=== PATIENT | female | born 1950 | race Caucasian/White ===

== ENCOUNTER → 2021-01-25 12:29 | Outpatient (CLI) | payer MEDICARE, OTHER, SELFPAY ==
[2021-01-25 13:45] LABS: NATERA MAILED SPECIMEN
[2021-01-28 14:29] LABS: HPV APTIMA, High Risk Negative (Negative)
== END ==
PROVIDERS: PCP Family Medicine; Referring Provider Obstetrics & Gynecology; Visit Provider Obstetrics & Gynecology
DX: Z12.4 Encounter for screening for malignant neoplasm of cervix (principal)
CPT/HCPCS: 36415; 87624; 88175; G0145

== ENCOUNTER 2021-07-01 13:10 | Outpatient (CLI) | payer MEDICARE, OTHER, SELFPAY ==
--- NOTE | 2021-07-01 13:12 | BI_ITS ---
MAMMOGRAPHY - BILATERAL SCREENING REASON FOR EXAM: Female, 70 years old. Routine annual screening examination. PERTINENT HISTORY: Non-contributory. TECHNIQUE: Digital bilateral breast jeffery (3D mammographic acquisition) in the CC and MLO projections. 2-D mediolateral oblique (MLO) and craniocaudad (CC) views of both breasts were obtained. CAD: Full Field Digital Mammography with Computer Added Detection was performed. COMPARISON: Comparison is made with prior outside examination dated 06/19/2020. FINDINGS: Breast Composition: There are scattered areas of fibroglandular density. There is a 7.8 mm x 5 mm well-defined nodular density in the upper deep slightly medial aspect of the left breast. This has increased slightly in size as compared to prior study. Correlation with ultrasound is recommended. No other significant abnormalities are identified. BI/SCRN MAMM (CAD)W/JEFFERY BILAT IMPRESSION: 7.8 mm x 5 mm well-defined nodule in the upper deep slightly medial aspect of the left breast. Correlation with ultrasound is recommended. ASSESSMENT CATEGORY: BIRADS Category 0: Incomplete. Need additional imaging evaluation. A letter regarding these results will be sent to the patient by the facility within 30 days. Approximately 10% of breast cancers are not detected by mammography. A normal mammogram should not delay biopsy of a clinically suspicious abnormality. [id number] Electronically Signed: Hasmukh Dolan MD at 9:28 EST ,
--- NOTE | 2021-07-01 13:36 | BD_ITS ---
STUDY: DUAL ENERGY X-RAY ABSORPTIOMETRY / DXA REASON FOR EXAM: Female, 70 years old. Postmenopausal TECHNIQUE: Bone Mineral Density (BMD) measurements of lumbar spine and bilateral hips were obtained. COMPARISON: None. FINDINGS: Lumbar Spine (L1-L4): g/cm2 (1.108) / T-score (0.6) / Z-score (2.7) Findings are suggestive of normal bone density with a low fracture risk. Left Femur Total: g/cm2 (0.867) / T-score (-0.6) / Z-score (0.9) Left Femoral Neck: g/cm2 (0.661) / T-score (-1.7) / Z-score (0.1) Right Femur Total: g/cm2 (0.891) / T-score (-0.4) / Z-score (1.1) Right Femoral Neck: g/cm2 (0.634) / T-score (-1.9) / Z-score (0.1) BD/Dexa Bone Density Study IMPRESSION: The patient is considered osteopenic as outlined below according to World Nik Organization (WHO) criteria with a moderate fracture risk. Reference Information: The T-score is the number of standard deviations above or below the standard which is normal for young adults at their peak bone mineral density. The World Health Organization (WHO) interprets the T-scores as follows: Above -1 Normal bone density Between -1 and -2.5 Osteopenia Equal to / or below -2.5 Osteoporosis As a practical clinical guideline, osteopenia may be graded as follows: Mild -1 through -1.5 Moderate -1.6 through -2.0 Severe -2.1 through -2.4 The Z-score is the number of standard deviations above or below age-matched controls. A Z-score of less than -1.5 would be considered abnormal. References: 1. NIH Osteoporosis and Related Bone Diseases www osteo.org 2. International Society for Clinical Densitometry www iscd.org 3. National Osteoporosis Foundation www nof.org Electronically Signed: Hasmukh Dolan MD at 10:04 EST ,
== END 2021-07-01 23:59 | disposition home or self-care (01) ==
PROVIDERS: PCP Family Medicine; Visit Provider Obstetrics & Gynecology
DX: Z78.0 Asymptomatic menopausal state (principal); Z12.31 Encounter for screening mammogram for malignant neoplasm of breast
CPT/HCPCS: 77063; 77067; 77080

== ENCOUNTER 2021-07-09 10:57 | Outpatient (CLI) | payer MEDICARE, OTHER, SELFPAY ==
--- NOTE | 2021-07-09 11:00 | US_ITS ---
STUDY: ULTRASOUND BREAST - LEFT REASON FOR EXAM: Female, 70 years old. Abnormal screening mammogram. TECHNIQUE: Axial and longitudinal images of the LEFT breast were performed with a high resolution ultrasound transducer. # OF IMAGES: 29 COMPARISON: 07/01/2021 FINDINGS: LEFT Breast: Heterogeneous background echotexture. At 11 o''clock, 10 cm from nipple, ultrasound confirms an 8 mm oval parallel microlobulated hypoechoic mass not consistent with a simple cyst and therefore ultrasound-guided vacuum-assisted core biopsy is recommended.: US/Breast Limited Unilateral IMPRESSION: Ultrasound confirms an 8 mm oval parallel microlobulated hypoechoic mass and ultrasound-guided vacuum-assisted core biopsy is recommended. ASSESSMENT CATEGORY: BIRADS Category 4: Suspicious - Biopsy Should Be Considered. A letter regarding these results will be sent to the patient by the facility within 30 days. Electronically Signed: Donis Castorena MD at 11:53 EDT ,
== END 2021-07-09 23:59 | disposition home or self-care (01) ==
PROVIDERS: PCP Family Medicine; Referring Provider Family Medicine; Visit Provider Family Medicine
DX: N63.22 Unspecified lump in the left breast, upper inner quadrant (principal)
CPT/HCPCS: 76642

== ENCOUNTER 2021-07-14 09:51 | Outpatient (CLI) | payer MEDICARE, OTHER, SELFPAY ==
--- NOTE | 2021-07-14 | BRBX_PTH ---
PATIENT: ARIAN SALGADO [facility] U#:[id number] AGE/SX: 70/F ROOM: RE07/14/[address]: Dr. Navdeep Hernandez MD : 1950 BED: DIS: 07/14/2021 SPEC #: [id number] RECD: 07/14/21 10:47 STATUS: LG GOLD #: [id number] MAYRA: 07/14/21 00:[address]: Navdeep Hernandez DEPT: SURGICAL PATHOLOGY RECD BY: Andrew Juarez ENTERED: 07/14/21 10:48 SP TYPE: BREAST BX OTHR DR: Dr. Iban Weller MD Tissues: Left breast, NOS Procedures: Surgery Specimen Level IV HEADER OPERATION: Left breast biopsy PRE-OP DIAGNOSIS: Left breast tissue TISSUE SUBMITTED: Left breast tissue ISCHEMIC TIME: 4 minutes FIXATION TIME: 10.5 hours MICROSCOPIC DIAGNOSIS Left breast, core biopsy: Hyalinized fibroadenoma Negative for atypia or malignancy. See comment. VALERIE:amaya 07/15/2021 COMMENT Correlation with clinical, radiologic findings and appropriate follow up are necessary. MICROSCOPIC DESCRIPTION Slides are reviewed. GROSS DESCRIPTION Received in fixative is one container labeled with the patient's name and designated left breast biopsy. The specimen consists of multiple elongated fragments of saucedo-yellow fibroadipose tissue that in aggregate measure 2 x 0.6 x 0.1 cm. The entire specimen is submitted in one cassette. / VALERIE:amaya 07/14/2021 TC:1 CPT: 68113
== END 2021-07-14 23:59 | disposition home or self-care (01) ==
PROVIDERS: PCP Family Medicine; Referring Provider Surgery; Visit Provider Surgery
DX: D24.2 Benign neoplasm of left breast (principal)
CPT/HCPCS: 88305

== ENCOUNTER → 2022-01-28 | Outpatient (CLI) | payer MEDICARE, OTHER, SELFPAY ==
--- NOTE | 2022-01-28 10:44 | US_ITS ---
STUDY: ULTRASOUND BREAST - LEFT REASON FOR EXAM: Female, 71 years old. Six-month follow-up of left breast biopsy. TECHNIQUE: Axial and longitudinal images of the LEFT breast were performed with a high resolution ultrasound transducer. # OF IMAGES: 13 COMPARISON: Comparison is made with prior study from 07/09/2021. FINDINGS: LEFT Breast: There is a 9 mm x 7 mm x 3 mm hypoechoic nodule at the 11 o''clock position of the breast at 10 cm from nipple. A tissue marker is seen within it. This is unchanged. US/Breast Limited Unilateral IMPRESSION: Stable 9 mm x 7 mm x 3 mm well-defined hypoechoic nodule at 11 o''clock position in the breast at 10 cm from the nipple. A tissue clip marker is seen within it. ASSESSMENT CATEGORY: BIRADS Category 2: Benign. A letter regarding these results will be sent to the patient by the facility within 30 days. Electronically Signed: Hasmukh Dolan MD at 12:27 EDT ,
== END | disposition home or self-care (01) ==
LOC: OPUS 10:43
PROVIDERS: PCP Family Medicine; Visit Provider Surgery
DX: R92.8 Other abnormal and inconclusive findings on diagnostic imaging of breast (principal)
CPT/HCPCS: 76642

== ENCOUNTER 2022-03-24 11:10 | Emergency (ER) | payer MEDICARE, OTHER, SELFPAY ==
[2022-03-24 11:11] VITALS: BP 165/84; PULSE 94; RESP 14; TEMP 36.4; O2SAT 96; BMI 27.4
[2022-03-24 11:51] LABS: Absolute Lymphocyte Count 2.72 X10^3/uL (0.83-4.51); Absolute Neutrophil Count 5.7 X10^3/uL (2.0-7.7); Basophil# 0.02 X10^3/uL; Basophil% 0.2 % (0-1); Eosinophil# 0.19 X10^3/uL; Hemoglobin 13.3 g/dL (12.0-15.0); Lymphocyte # 2.72 X10^3/ul (0.83-4.51); Lymphocyte % 29.1 % (19-41); Mean Corp Hgb Conc 33.3 g/dL (32-36); Mean Corpuscular Hgb 28.2 pg (27.0-32.0); Mean Corpuscular Volume 84.7 fL (81-99); Mean Platelet Vol. 10.5 fl (6.2-12.0); Monocyte# 0.67 X10^3/uL; Monocyte% 7.2 % (0-10); NRBC Flagged by Analyzer 0 % (0-5); Neutrophil # 5.73 X10^3/uL (2.7-7.7); Neutrophil % 61.2 % (47-70); Platelet Count 281 K/mm3 (150-450); RBC Distribution Width CV 12.6 % (11.6-14.6); RBC Distribution Width SD 38.4 fl (35.1-43.9); Red Blood Count 4.72 M/mm3 (4.2-5.4); White Blood Count 9.4 K/mm3 (4.4-11.0)
--- NOTE | 2022-03-24 12:00 | EDS_ITS ---
HPI HPI - GI History of Present Illness Chief Complaint: Abd Pain Informant: patient Abdominal Pain/Flank Pain Onset: Days (2) Context: Sudden Onset Timing: Continuous Quality: Aching and Stabbing Location: RLQ Worsened by: Nothing Relieved by: Nothing Nausea/Vomiting/Emesis GI Symptom: Negative for Nausea or Vomiting Diarrhea/Melena/Hematochezia GI Symptom: Negative for Diarrhea, Melena or Hematochezia Associated Symptoms Associated Symptoms: Negative for Dysuria, Frequency, Hematuria or Urgency Narrative Narrative: Patient presents with abdominal pain that has been constant for the past 2 days. Patient states her pain is better today. Patient describes her pain as aching and stabbing. Patient states the pain is in the right lower abdomen. Patient states the pain started in the right lower quadrant. Patient states nothing makes it better nothing makes it worse. Patient does admit to a decreased appetite but denies any nausea or vomiting. Patient denies any diarrhea, melena, or hematochezia. Patient denies any dysuria, urgency, frequency, or hematuria. Patient admits to some subjective chills but denies any fevers. [facility] Medical History Abnormal mammogram of left breast Anxiety and depression Genetic testing of female GERD (gastroesophageal reflux disease) Hypertension Thyroid disease Home Medications ascorbate calcium (vitamin C) 500 mg tablet 500 mg PO DAILY 01/25/21 [History Last Taken Unknown] cholecalciferol (vitamin D3) 50 mcg (2,000 unit) capsule 50 mcg PO DAILY 01/25/21 [History Last Taken Unknown] cyanocobalamin (vitamin B-12) 1,000 mcg capsule 1,000 mcg PO DAILY 01/25/21 [History Last Taken Unknown] escitalopram oxalate 10 mg tablet (Lexapro) 10 mg PO DAILY 01/25/21 [History Last Taken Unknown] levothyroxine 112 mcg tablet 112 mcg PO DAILY 01/25/21 [History Last Taken Unknown] losartan 100 mg-hydrochlorothiazide 25 mg tablet 1 tab PO DAILY 01/25/21 [History Last Taken Unknown] multivitamin 1 tab PO DAILY 07/14/21 [History Last Taken Unknown] Allergy/AdvReac Type Severity Reaction Status Date / Time sulfabenzamide [From Sultrin] Allergy Mild other Verified 03/24/22 11:12 sulfacetamide [From Sultrin] Allergy Mild other Verified 03/24/22 11:12 sulfathiazole [From Sultrin] Allergy Mild other Verified 03/24/22 11:12 Family History Mother Lung cancer Brain cancer malignant CAD (coronary artery disease) Father COPD (chronic obstructive pulmonary disease) Prostate cancer Colon cancer Grandmother Colon cancer Surgical History H/O tubal ligation History of breast biopsy (~06/2021) History of endometrial ablation Social History Smoking Status: Never smoker alcohol intake: never caffeine: No seatbelt use: always do you feel safe at home: Yes additional social history: retired- [employer] ED Constitutional Constitutional ED: Reports chills and subjective; Denies fever(s) Eyes Eyes: Denies blurry vision or change in vision ENT ENT ED: Denies rhinorrhea or sore throat Cardiovascular Cardiovascular: Denies chest pain or palpitations Respiratory/Chest Respiratory/Chest: Denies cough or dyspnea Gastrointestinal Gastrointestinal: Reports abdominal pain; Denies nausea or vomiting Genitourinary Genitourinary ED: Denies dysuria or hematuria Musculoskeletal Musculoskeletal: Denies back pain or neck pain Integumentary Denies abscess or rash Neurologic Neurologic: Denies headache(s) or weakness Allergic/Immunologic Allergic/Immunologic ED: Denies mouth swelling or urticaria EXAM Physical Exam Const Vital Signs: 03/24/22 11:11 03/24/22 13:10 Temperature 97.6 F L Temperature Source Temporal Pulse Rate 94 Respiratory Rate 14 16 Blood Pressure 165/84 H Blood Pressure Mean 111 Pulse Ox 96 Oxygen Delivery Method Room Air Positive well nourished and well developed General Appearance ED: well developed HEENT Reports moist mucous membranes Neck supple and no JVD Resp normal respiratory effort and clear to auscultation bilaterally Cardio regular rate, regular rhythm and no murmurs GI normal to inspection, nondistended, normoactive bowel sounds Palpation: soft and tender RLQ; Negative for guarding or rebound tenderness present Extremity normal to inspection General Extremety ED: Negative for edema or tenderness General Extremity: Negative for edema Neuro oriented x3, CN's II-XII intact bilaterally and no sensory deficits noted Sensorium / Orientation: alert Motor Exam: strength 5/5 throughout Psych mental status grossly normal Skin no rashes or lesions noted MDM MDM MDM Narrative Medical decision making narrative: Patient was given IV fluids, morphine, and Zofran. CBC was within normal limits. Basic metabolic profile was essentially within normal limits. Urinalysis does not show any evidence of urinary tract infection or hematuria. CT scan of the abdomen pelvis was obtained. There is a fatty liver. There is no intraperitoneal free air, fluid, or adenopathy. The appendix was visualized and was normal. This was interpreted by the radiologist and reviewed by myself. Patient is feeling better on reevaluation. Patient was advised of her findings. Patient was instructed to follow-up with her primary care physician in 5 to 7 days. Patient understood and was agreeable with the plan. All questions were answered. Lab Data Attestation: I reviewed the patient's lab results. Labs: Laboratory Results - last 24 hr 03/24/22 03/24/22 03/24/22 11:40 11:40 13:24 WBC 9.4 RBC 4.72 Hgb 13.3 Hct 40.0 MCV 84.7 MCH 28.2 MCHC 33.3 RDW Std Deviation 38.4 RDW Coeff of Aubrie 12.6 Plt Count 281 MPV 10.5 Immature Gran % (Auto) 0.300 Neut % (Auto) 61.2 Lymph % (Auto) 29.1 [place] % (Auto) 7.2 Eos % (Auto) 2.0 Baso % (Auto) 0.2 Absolute Neuts (auto) 5.7 Absolute Lymphs (auto) 2.72 Nucleated RBC % 0 Sodium 141 Potassium 3.4 L Chloride 103 Carbon Dioxide 30.0 Anion Gap 8 BUN 15 Creatinine 1.13 H Estim Creat Clear Calc 43.37 Est GFR (MDRD) Af Amer 61 Est GFR (MDRD) Non-Af 51 L BUN/Creatinine Ratio 13.3 Glucose 146 H Calcium 9.7 Urine Color Straw Urine Clarity Clear Urine pH 7.0 Ur Specific [place] 1.005 Urine Protein Negative Urine Glucose (UA) Normal Urine Ketones Negative Urine Occult Blood Negative Urine Nitrite Negative Urine Bilirubin Negative Urine Urobilinogen Normal Ur Leukocyte Esterase 25 H Urine RBC 0 SEEN Urine WBC 0-5 SEEN Ur Squamous Epith Cells 0 SEEN Urine Bacteria 0 SEEN Urine Mucus 0 SEEN Radiography Diagnostic Testing: Clinical Impression(s) from Imaging Studies Abdomen/Pelvis CT 03/24/22 12:04 IMPRESSION: Fatty liver, no discrete lesion No free intraperitoneal fluid, air, or suspicious adenopathy. Normal appendix visualized Uterus is present, the endometrium cannot be accurately evaluated with CT Electronically Signed: Venkat Lopez MD at 14:51 EST Reading Location ID and State: [facility] / [place] , Service support , Discharge Plan Triage Chief Complaint: Abd Pain ED Provider: Toan Delaney Dx/Rx/DC Orders Clinical Impression: Abdominal pain, acute, right lower quadrant, Hypokalemia Instructions: ED Abdominal Pain Unkn Cause Fem Prescriptions: No Action levothyroxine 112 mcg tablet 112 mcg PO DAILY escitalopram oxalate [Lexapro] 10 mg tablet 10 mg PO DAILY losartan-hydrochlorothiazide 100-25 mg tablet 1 tab PO DAILY cholecalciferol (vitamin D3) 50 mcg (2,000 unit) capsule 50 mcg PO DAILY cyanocobalamin (vitamin B-12) 1,000 mcg capsule 1,000 mcg PO DAILY ascorbate calcium (vitamin C) 500 mg tablet 500 mg PO DAILY multivitamin Tablet 1 tab PO DAILY Primary Care Provider: Iban Weller Referrals: Iban Weller MD [Primary Care Provider] - 3-5 Days Disposition Disposition: Home, Self Care
[2022-03-24 12:04] LABS: Anion Gap 8 (5-15); BUN 15 mg/dL (7-18); BUN/Creat Ratio 13.3 RATIO (10-20); Calcium,Total 9.7 mg/dL (8.5-10.1); Chloride 103 mmol/L (98-107); Creatinine, Serum 1.13 mg/dL (0.55-1.02); EST Glomerular Filtration Rate 51 mL/min (>60); Est Glom Filt Rate - Afr Amer 61 mL/min (>60); Estimated Creatinine Clearance 43.37 ml/min; Glucose 146 mg/dL (74-106); Potassium 3.4 mmol/L (3.5-5.1); Sodium Level 141 mmol/L (136-145)
--- NOTE | 2022-03-24 12:04 | CT_ITS ---
STUDY: CT ABDOMEN AND PELVIS WITH CONTRAST REASON FOR EXAM: Female, 71 years old. Diffuse abdominal pain RADIATION DOSAGE (If Supplied By Facility): CTDIvol = ( 14.8 ) mGy, DLP = ( 946.38 ) mGycm TECHNIQUE: Transaxial images were obtained from the dome of the diaphragm to the symphysis pubis with oral contrast. Oral and amp; IV Gastrografin and amp; 100mL Isovue-300 was administered. Sagittal and coronal images were reconstructed. Individualized dose optimization techniques were used for this CT. COMPARISON: None. FINDINGS: The visualized lung bases are unremarkable. The visualized portions of the heart are within normal limits. There is decreased attenuation of the liver consistent with steatosis. Normal gallbladder and extrahepatic biliary system. Normal spleen. Normal pancreas. Normal bilateral adrenal glands. Normal right kidney. Normal left kidney. Normal visualized stomach. Normal small intestine. Retained stool noted in the colon. The appendix is visualized and appears normal. Appendix seen on coronal recon images 45 through 51 Normal abdominal aorta. Normal inferior vena cava. Normal retroperitoneum. Normal urinary bladder. The uterus is present, the endometrium cannot be accurately evaluated with CT. Normal abdominal wall. There are diffuse degenerative changes of the visualized lumbar spine, and pelvis with a likely hemangioma at L3. CT/Abdomen/Pelvis WITH Contrast IMPRESSION: Fatty liver, no discrete lesion No free intraperitoneal fluid, air, or suspicious adenopathy. Normal appendix visualized Uterus is present, the endometrium cannot be accurately evaluated with CT Electronically Signed: Venkat Lopez MD at 14:51 EST ,
[2022-03-24] MEDS: 0.9% Normal Saline 1,000 ML 1000 ML IV (12:19)
[2022-03-24 13:10] VITALS: RESP 16
[2022-03-24 13:28] LABS: Bacteria 0 SEEN /hpf (None Seen); Mucous, Urine 0 SEEN /hpf (<or=2+); Red Blood Cells-Urine 0 SEEN /hpf (0-5); Squamous Epithelial Cells - UA 0 SEEN /hpf (5-10)
[2022-03-24 13:35] LABS: Color, Urine Straw (Yellow); Glucose, Dipstick Normal (Normal); Ketone-Dipstick Negative (Negative); Leukocyte Esterase-Dipstick 25 /ul (Negative); Nitrite-Dipstick Negative (Negative); Occult Blood-Urine Negative /ul (Negative); Protein-Dipstick Negative (Negative); Specific Gravity, Urine 1.005 (1.002-1.030); Urine Bilirubin Dipstick Negative (Negative); Urine Clarity Clear (Clear); Urine Urobilinogen Normal (Normal)
[2022-03-24 13:42] LABS: White Blood Cells 0-5 SEEN /hpf (0-5)
== END 2022-03-24 15:56 | disposition home or self-care (01) ==
PROVIDERS: Emergency Provider Emergency Medicine; PCP Family Medicine; Visit Provider Emergency Medicine
DX: R10.31 Right lower quadrant pain (principal); E87.6 Hypokalemia; I10 Essential (primary) hypertension; K76.0 Fatty (change of) liver, not elsewhere classified
CPT/HCPCS: 74177; 80048; 81001; 85025; 96360; 99283; J7030; Q9967; A4216; J2405

== ENCOUNTER → 2022-07-04 | Outpatient (CLI) | payer MEDICARE, OTHER, SELFPAY ==
--- NOTE | 2022-07-04 12:28 | BI_ITS ---
MAMMOGRAPHY - BILATERAL SCREENING 3-D TOMOSYNTHESIS REASON FOR EXAM: Female, 71 years old. SCREENING MAMMOGRAM PERTINENT HISTORY: No significant family history. TECHNIQUE: 2-D mammograms and 3-D Tomosynthesis of the breast (s) were performed. CAD was performed. COMPARISON: 07/01/2021 FINDINGS: The breast composition is composed of scattered fibroglandular density. Scattered benign calcifications are seen. No dense spiculated masses or suspicious microcalcifications are identified. No architectural distortion is identified. There is no skin thickening or retraction. There has been no significant change since the prior study. BI/SCRN MAMM (CAD)W/JEFFERY BILAT IMPRESSION: No mammographic signs of malignancy. Routine yearly mammograms recommended. ASSESSMENT CATEGORY: BIRADS Category 1: Negative. A letter regarding these results will be sent to the patient by the facility within 30 days. FOLLOW UP RECOMMENDATION: Yearly follow up mammogram recommended. (A) Approximately 10% of breast cancers are not detected by mammography. A normal mammogram should not delay biopsy of a clinically suspicious abnormality. Electronically Signed: Venkat Lopez MD at 13:22 EDT ,
== END | disposition home or self-care (01) ==
PROVIDERS: PCP Family Medicine; Referring Provider Obstetrics & Gynecology; Visit Provider Obstetrics & Gynecology
DX: Z12.31 Encounter for screening mammogram for malignant neoplasm of breast (principal)
CPT/HCPCS: 77063; 77067

== ENCOUNTER → 2023-07-07 | Outpatient (CLI) | payer MEDICARE, OTHER, SELFPAY ==
--- NOTE | 2023-07-07 13:12 | BI_ITS ---
MAMMOGRAPHY - BILATERAL SCREENING REASON FOR EXAM: Female, 72 years old. Routine annual screening examination. PERTINENT HISTORY: Non-contributory. Prior left ultrasound-guided breast biopsy. TECHNIQUE: Digital bilateral breast jeffery (3D mammographic acquisition) in the CC and MLO projections. 2-D mediolateral oblique (MLO) and craniocaudad (CC) views of both breasts were obtained. CAD: Full Field Digital Mammography with Computer Added Detection was performed. COMPARISON: Comparison is made with prior study dated July 04, 2022 and July 01, 2021 FINDINGS: Breast Composition: There are scattered areas of fibroglandular density. There are no dominant masses or suspicious calcifications. Stable bilateral fat-containing axillary lymph nodes. A tissue clip marker is seen in the upper central medial aspect of the left breast. No other significant abnormalities are identified. There has been no significant change since the prior study. BI/SCRN MAMM (CAD)W/JEFFERY BILAT IMPRESSION: Stable bilateral screening mammogram. Yearly follow-up mammogram recommended. (A) ASSESSMENT CATEGORY: BIRADS Category 2: Benign. A letter regarding these results will be sent to the patient by the facility within 30 days. Approximately 10% of breast cancers are not detected by mammography. A normal mammogram should not delay biopsy of a clinically suspicious abnormality. [id number] Electronically Signed: Hasmukh Dolan MD at 14:24 EDT ,
--- OUTSIDE RECORDS SUMMARY | 2023-07-07 18:20 | XMS RPT_ITS | CCD ---
Author Name Unknown Address [address] [place] [address] Organization [facility] Care Team Providers Care Aircraft Armorer Name Role Phone Prakash Weller Unavailable José Miguel Petit Unavailable Unavailable José Miguel Petit Unavailable Unavailable José Miguel Petit Unavailable Unavailable José Miguel Petit Unavailable Unavailable José Miguel Petit Unavailable Unavailable José Miguel Petit Unavailable Unavailable José Miguel Petit Unavailable Unavailable José Miguel Petit Unavailable Unavailable Prakash Weller Unavailable Unavailable Prakash Weller Unavailable Unavailable Prakash Weller Primary Care Provider [phone] Prakash Weller MD Unavailable Unavailable Prakash Weller Unavailable Unavailable Prakash Weller Unavailable Unavailable Unavailable Prakash Weller MD Primary Care Provider JOSÉ MIGUEL PETIT Referring Unavailab le SCOTT, PRAKASH BERNAL Primary Care Unavailab BLAISE Gutierrez Attending Unavailable JOSÉ MIGUEL PETIT Referring Unavailab le JOSÉ MIGUEL PETIT Admitting Unavailab le STENTEE, PRAKASH BERNAL Primary Care Unavailab BLAISE Gutierrez Attending Unavailable JOSÉ MIGUEL PETIT Referring Unavailab le SADIEJOSÉ MIGUEL FIGUEROA Admitting Unavailab le STENTEE, PRAKASH BERNAL Primary Care Unavailab le STENPRAKASH OLIVEIRA Primary Care Unavailab le JOSÉ MIGUEL PETIT Admitting Unavailab le JOSÉ MIGUEL PETIT Attending Unavailab le SADIE, JOSÉ MIGUEL MCMILLAN Admitting Unavailab le JOSÉ MIGUEL PETIT Referring Unavailab TRANG Strong Attending Unavailable PRAKASH WELLER Primary Care Unavailab BLAISE Gutierrez Attending Unavailable PRAKASH WELLER Primary Care Unavailab SARAH Iglesias Referring Unavailable RICKETTS, SARAH TILLEY Admitting Unavailable RICKETTS, SARAH TILLEY Referring Unavailable STENCEL, PRAKASH BERNAL Primary Care Unavailab le HERNÁNDEZ, TRANG Attending Unavailable RICKETTS, SARAH TILLEY Admitting Unavailable STENCEL, PRAKASH BERNAL Primary Care Unavailab le RICKETTS, SARAH TILLEY Admitting Unavailable RICKETTS, SARAH TILLEY Referring Unavailable WARTARA, SORIN Attending Unavailable SADIE, JOSÉ MIGUEL MCMILLAN Referring Unavailab le SADIE, JOSÉ MIGUEL MCMILLAN Admitting Unavailab le HERNÁNDEZ, TRANG Attending Unavailable STENCEL, PRAKASH BERNAL Primary Care Unavailab le STENCEL, PRAKASH BERNAL Primary Care Unavailab le SADIE, JOSÉ MIGUEL MCMILLAN Admitting Unavailab le SADIE, JOSÉ MIGUEL MCMILLAN Referring Unavailab le DEMARIODEBBY Attending Unavailable STENTEE, PRAKASH BERNAL Primary Care Unavailab le RICKETTS, SARAH TILLEY Referring Unavailable RICKETTS, SARAH TILLEY Admitting Unavailable HERNÁNDEZ, TRANG Attending Unavailable STENCEL, PRAKASH BERNAL Primary Care Unavailab le RICKETTS, SARAH TILLEY Referring Unavailable RICKETTS, SARAH TILLEY Admitting Unavailable DEMARIO, DEBBY Worthington Attending Unavailable STENTEE, PRAKASH BERNAL Primary Care Unavailab le RICKETTS, SARAH TILLEY Referring Unavailable RICKETTS, SARAH TILLEY Admitting Unavailable STENCEL, PRAKASH BERNAL Primary Care Unavailab le SADIE, JOSÉ MIGUEL MCMILLAN Attending Unavailab le SADIE, JOSÉ MIGUEL MCMILLAN Referring Unavailab le STENCEL, PRAKASH BERNAL Primary Care Unavailab le RICKETTS, SARAH TILLEY Referring Unavailable RICKETTS, SARAH TILLEY Attending Unavailable WONGHERMAN Wagner Attending Unavailable JOSÉ MIGUEL PETIT Referring Unavailab le SADIE, JOSÉ MIGUEL MCMILLAN Admitting Unavailab le STENCEL, PRAKASH BERNAL Primary Care Unavailab le STENCEL, PRAKASH BERNAL Primary Care Unavailab le WONGHERMAN Attending Unavailable JOSÉ MIGUEL PETIT Referring Unavailab le SADIE, JOSÉ MIGUEL MCMILLAN Admitting Unavailab le STENCEL, PRAKASH BERNAL Primary Care Unavailab le SADIE, JOSÉ MIGUEL MCMILLAN Referring Unavailab le SADIE, JOSÉ MIGUEL MCMILLAN Admitting Unavailab le HERNÁNDEZ, TRANG Attending Unavailable SCOTT, PRAKASH BERNAL Primary Care Unavailab le HALL, PRIYANKA Attending Unavailable SADIE, JOSÉ MIGUEL MCMILLAN Referring Unavailab le SADIE, JOSÉ MIGUEL MCMILLAN Admitting Unavailab le SADIE, JOSÉ MIGUEL MCMILLAN Referring Unavailab le SADIE, JOSÉ MIGUEL MCMILLAN Admitting Unavailab le HERNÁNDEZ, TRANG Attending Unavailable STENCEL, PRAKASH BERNAL Primary Care Unavailab le WONGHERMAN Attending Unavailable SADIE, JOSÉ MIGUEL MCMILLAN Referring Unavailab le SADIE, JOSÉ MIGUEL MCMILLAN Admitting Unavailab le STENCEL, PRAKASH BERNAL Primary Care Unavailab le HERNÁNDEZ, TRANG Attending Unavailable STENCEL, PRAKASH BERNAL Primary Care Unavailab le RICKETTS, SARAH TILLEY Referring Unavailable RICKETTS, SARAH TILLEY Admitting Unavailable HALLPRIYANKA Attending Unavailable SADIE, JOSÉ MIGUEL MCMILLAN Referring Unavailab le SADIE, JOSÉ MIGUEL MCMILLAN Admitting Unavailab le STENCEL, PRAKASH BERNAL Primary Care Unavailab le Stencel, Dr. Prakash Bernal Referring Unava ilable Stencel, Dr. Prakash Bernal Attending Unava ilable Stencel, Dr. Prakash Bernal Primary Care Unava ilable Stencel, Dr. Prakash Bernal Primary Care Unava ilable Stencel, Dr. Prakash Bernal Referring Unava ilable Stencel, Dr. Prakash Bernal Attending Unava ilable Stencel Prakash RUIZ Primary Care Provider StenPrakash oliveira MD Unavailable [phone] SCOTT, PRAKASH BERNAL Primary Care Unavailab le MEAGAN MANUEL Attending Unavailable STENCEL, PRAKASH BERNAL Primary Care Unavailab le SINCEREMAHESH Attending Unavailable RICKETTS, SARAH TILLEY Attending Unavailable STENCEL, PRAKASH BERNAL Primary Care Unavailab le RICKETTSSARAH Referring Unavailable STENCEL, PRAKASH BERNAL Primary Care Unavailab le RICKETTS, SARAH TILLEY Admitting Unavailable RICKETTS, SARAH TILLEY Attending Unavailable STENCEL, PRAKASH BERNAL Primary Care Unavailab le RICKETTSSARAH Attending Unavailable STENCEL, PRAKASH BERNAL Primary Care Unavailab le STENCEL, PRAKASH BERNAL Primary Care Unavailab le HILDA RODARTE Attending Unavailable SADIE, JOSÉ MIGUEL MCMILLAN Referring Unavailab le STENCEL, PRAKASH BERNAL Primary Care Unavailab le SADIE, JOSÉ MIGUEL MCMILLAN Admitting Unavailab le CADE, CARLOS VANESSA Attending Unavailabl e SADIE, JOSÉ MIGUEL MCMILLAN Attending Unavailab le STENCEL, PRAKASH BERNAL Primary Care Unavailab le SADIE, JOSÉ MIGUEL MCMILLAN Attending Unavailab le STENCEL, PRAKASH BERNAL Primary Care Unavailab le SADIE, JOSÉ MIGUEL MCMILLAN Attending Unavailab le STENCEL, PRAKASH BERNAL Primary Care Unavailab le SADIE, JOSÉ MIGUEL MCMILLAN Referring Unavailab le PRAKASH WELLER Primary Care Unavailab JOSÉ MIGUEL Zaidi Admitting Unavailab PRAKASH Flaherty Primary Care Unavailable PRAKASH WELLER Attending Unavailable PRAKASH WELLER Primary Care Unavailable PRAKASH WELLER Attending Unavailable PRAKASH WELLER Referring Unavailable PRAKASH WELLER Primary Care Unavailable JUAN LUIS BEST Attending Unavailable JUAN LUIS BEST R Referring Unavailable PRAKASH WELLER Primary Care Unavailable Allergies Allergy Classification Reported Allergen(s) Allergy Type Date of Onset Reaction(s) Facility amLODIPine (1 source) amLODIPine Drug Allergy Edema -Medical [facility] Work Phone: Angiotensin Converting Enzyme (ANTONI) Inhibitors (1 source) Lisinopril; Translations: [Lisinopril TABS] Drug Allergy Cough [facility] Work Phone: sulfabenzamide / Sulfacetamide / sulfathiazole (1 source) sulfabenzamide / Sulfacetamide / sulfathiazole Drug Allergy Rash, Edema -Medical [facility] Work Phone: (20 sources) OTHER; Translations: [OTHER] Propensity to adverse reactions 12-24-19 15 Rash [facility] (20 sources) SULTRIN; Translations: [SULTRIN] Propensity to adverse reactions to drug 05-15-19 18 [facility] (20 sources) amLODIPine; Translations: [amlodipine] Drug Allergy 08-12-19 23 Edema, Swelling [facility] Work Phone: (20 sources) Lisinopril; Translations: [Lisinopril TABS] Drug Allergy 08-12-19 23 Cough, Other (See Comments), Other [facility] Work Phone: (15 sources) sulfabenzamide / Sulfacetamide / sulfathiazole; Translations: [Sultrin Triple Sulfa] Drug Allergy 11-26-19 23 Rash, Edema, Swelling -Medical [facility] Work Phone: (7 sources) Lisinopril; Translations: [LISINOPRIL] Drug Allergy 08-12-19 [facility] Repository Medications Current Medications Medication Drug Class(es) Dates Sig (Normalized) Sig (Original) ascorbic acid 1000 mg oral tablet (20 sources) Vitamin C take 1 tablet by chrissy th once daily ascorbic acid (Vitamin C) 1,000 mg tablet Take 1 tablet (1,000 mg) by mouth once daily. 0 Active Completed/Discontinued Medications Medication Drug Class(es) Dates Sig (Normalized) Sig (Original) acetaminophen 325 mg oral tablet (15 sources) Start: 10-03-2022 End: 10-13-2022 take 2 tablets by mouth every four hours acetaminophen (TYLENOL) 325 MG tablet Take 2 (two) tablets (650 mg total) by mouth every 4 (four) hours while awake for 10 days . 30 tablet 0 10/03/2022 10/13/2022 acetaminophen 325 mg / HYDROcodone bitartrate 5 mg oral tablet (6 sources) Opioid Agonist Start: 09-29-2017 End: 06-29-2022 take 1 tablet by mouth once for pain HYDROcodone-acetami nophen (NORCO) 5-325 mg per tablet Take 1 tablet by mouth for pain. 0 09/29/2017 06/29/2022 Discontinued (Discontinued by another clinician) b complex vitamins capsule (3 sources) End: 06-29-2022 take 1 capsule by mouth once daily b complex vitamins capsule Take 1 capsule by mouth daily. 0 06/29/2022 Discontinued (Discontinued by another clinician) Problems Active Problems Problem Classification Problem Date Documented Da te Episodic/Chronic Anxiety disorders (20 sources) Mixed anxiety and depressive disorder; Translations: [Dysthymic disorder] Onset: 08-11-2022 08-11-2022 Chronic Disorders of lipid metabolism (20 sources) Hyperlipidemia; Translations: [Other and unspecified hyperlipidemia] Onset: 08-11-2022 08-11-2022 Chronic Esophageal disorders (2 sources) Gastro-esophageal reflux disease without esophagitis; Translations: [Gastro-esophageal reflux disease without esophagitis] Onset: 06-05-2023 Chronic Essential hypertension (20 sources) Benign hypertension; Translations: [Benign essential hypertension] Onset: 08-11-2022 08-11-2022 Chronic Fluid and electrolyte disorders (2 sources) Hypokalemia; Translations: [Hypokalemia] Onset: 12-14-2022 Episodic Immunizations and screening for infectious disease (20 sources) Patient encounter status; Translations: [Other specified vaccination] 05-19-2023 Episodic Nausea and vomiting (2 sources) Nausea with vomiting, unspecified; Translations: [Nausea with vomiting, unspecified] Onset: 12-14-2022 Episodic Osteoarthritis (20 sources) Osteoarthritis of left knee joint; Translations: [Unilateral primary osteoarthritis, left knee] Onset: 08-19-2022 Chronic Other aftercare (2 sources) Aftercare following joint replacement surgery; Translations: [Aftercare following joint replacement surgery] Onset: 10-04-2022 Chronic Other connective tissue disease (20 sources) History of total knee arthroplasty; Translations: [Presence of left artificial knee joint] Onset: 10-24-2022 10-10-2022 Chronic Other connective tissue disease (6 sources) Presence of left artificial knee joint; Translations: [Presence of left artificial knee joint] Onset: 10-04-2022 Chronic Other ear and sense organ disorders (1 source) Bilateral sensory hearing loss; Translations: [Sensory hearing loss, bilateral] Chronic Other ear and sense organ disorders (1 source) Bilateral tinnitus; Translations: [Tinnitus of both ears] Episodic Other gastrointestinal disorders (2 sources) Diarrhea, unspecified; Translations: [Diarrhea, unspecified] Onset: 12-14-2022 Episodic Other nutritional; endocrine; and metabolic disorders (1 source) Overweight in adulthood with body mass index of 25 or more but less than 30; Translations: [Overweight] Episodic Other nutritional; endocrine; and metabolic disorders (1 source) H/O: Disorder; Translations: [Personal history of other endocrine, nutritional and metabolic disease] 09-23-2022 Episodic Other screening for suspected conditions (not mental disorders or infectious disease) (4 sources) Other specified abnormal findings of blood chemistry; Translations: [Encounter for screening for malignant neoplasm of colon] Onset: 12-14-2022 Episodic Residual codes; unclassified (1 source) Menopause present; Translations: [Menopause] Chronic Residual codes; unclassified (20 sources) Past history of procedure; Translations: [Other specified personal history presenting hazards to health] Episodic Past or Other Problems Problem Classification Problem Date Documented Da te Episodic/Chronic Nonmalignant breast conditions (7 sources) Lump of upper inner quadrant of breast; Translations: [Lump or mass in breast] Onset: 11-25-2022 11-25-2022 Episodic Other aftercare (2 sources) Encounter for follow-up examination after completed treatment for conditions other than malignant neoplasm; Translations: [Encounter for follow-up examination after completed treatment for conditions other than malignant neoplasm] Onset: 11-18-2022 Episodic Other ear and sense organ disorders (12 sources) Presbycusis; Translations: [Presbyacusis] Onset: 11-25-2022 11-25-2022 Episodic Residual codes; unclassified (2 sources) Pain, unspecified; Translations: [Pain, unspecified] Onset: 06-29-2022 Episodic Unclassified (2 sources) Patient encounter status; Translations: [Screening for breast cancer] Unclassified (3 sources) Onset: 11-28-2022 11-28-2022 NEGATED: Highlighted row has not occurred!Residual codes; unclassified (3 sources) Disease Episodic Results Test Name Value Interpretation Reference Range Facil ity Vital Signs Date Time Vital Sign Value Performing Clinician Facility 05-26-2023 09:25-0500 Diastolic blood pressure 75 mm[Hg] Juan Luis Best DO Work Phone: [facility] 05-26-2023 09:25-0500 Heart rate 81 /min Juan Luis Best DO Work Phone: [facility] 05-26-2023 09:25-0500 Respiratory rate 18 /min Juan Luis Best DO Work Phone: [facility] 05-26-2023 09:25-0500 SaO2% (BldA) [Mass fraction] 98 % Juan Luis Best DO Work Phone: [facility] 05-26-2023 09:25-0500 Systolic blood pressure 125 mm[Hg] Juan Luis Hernandezae DO Work Phone: [facility] 05-26-2023 08:45-0500 Body temperature 96.91 [degF] Juan Luis Best DO Work Phone: [facility] 05-26-2023 07:18-0500 Body height 167.6 cm Juan Luis Best DO Work Phone: [facility] 05-26-2023 07:18-0500 Body mass index (BMI) [Ratio] 28.49 kg/m2 Juan Luis Best DO Work Phone: [facility] 05-26-2023 07:18-0500 Body weight 80.02 kg Juan Luis Best DO Work Phone: [facility] 11-28-2022 10:24-0400 Body height 167.6 cm Prakash Weller MD Work Phone: [facility] 11-28-2022 10:24-0400 Body mass index (BMI) [Ratio] 29.09 kg/m2 Prakash Weller MD Work Phone: [facility] 11-28-2022 10:24-0400 Body weight 81.74 kg Prakash Weller MD Work Phone: [facility] 11-28-2022 10:24-0400 Diastolic blood pressure 74 mm[Hg] Prakash Weller MD Work Phone: [facility] 11-28-2022 10:24-0400 Heart rate 98 /min Prakash Weller MD Work Phone: [facility] 11-28-2022 10:24-0400 SaO2% (BldA) [Mass fraction] 96 % Prakash Weller MD Work Phone: [facility] 11-28-2022 10:24-0400 Systolic blood pressure 134 mm[Hg] Prakash Weller MD Work Phone: [facility] 10-20-2022 10:35-0400 Body temperature 97.3 [degF] Brody De Leon PT [facility] 10-20-2022 10:35-0400 Diastolic blood pressure 86 mm[Hg] Brody De Leon PT [facility] 10-20-2022 10:35-0400 Respiratory rate 16 /min Brody De Leon PT [facility] 10-20-2022 10:35-0400 SaO2% (BldA) [Mass fraction] 97 % Brody De Leon PT [facility] 10-20-2022 10:35-0400 Systolic blood pressure 149 mm[Hg] Brody De Leon PT [facility] 10-19-2022 12:48-0400 Body temperature 97.7 [degF] Vidya Arroyo [facility] 10-19-2022 12:48-0400 Diastolic blood pressure 88 mm[Hg] Vidya [facility] 10-19-2022 12:48-0400 Heart rate 86 /min Vidya [facility] 10-19-2022 12:48-0400 Respiratory rate 16 /min Vidya [facility] 10-19-2022 12:48-0400 SaO2% (BldA) [Mass fraction] 97 % Vidya [facility] 10-19-2022 12:48-0400 Systolic blood pressure 148 mm[Hg] [facility]annah [facility] 10-18-2022 11:43-0400 Body temperature 98.29 [degF] Fernadno Loza [facility] 10-18-2022 11:43-0400 Diastolic blood pressure 80 mm[Hg] Fernando Loza [facility] 10-18-2022 11:43-0400 Heart rate 96 /min [facility] 10-18-2022 11:43-0400 Respiratory rate 18 /min Fernando Loza [facility] 10-18-2022 11:43-0400 SaO2% (BldA) [Mass fraction] 98 % Fernando Loza [facility] 10-18-2022 11:43-0400 Systolic blood pressure 148 mm[Hg] Fernando Loza [facility] 10-17-2022 15:07-0400 Body temperature 97 [degF] [facility] 10-17-2022 15:07-0400 Diastolic blood pressure 78 mm[Hg] Viyda [facility] 10-17-2022 15:07-0400 Heart rate 96 /min Vidya [facility] 10-17-2022 15:07-0400 Respiratory rate 16 /min Vidya [facility] 10-17-2022 15:07-0400 SaO2% (BldA) [Mass fraction] 97 % Vidya [facility] 10-17-2022 15:07-0400 Systolic blood pressure 130 mm[Hg] Vidya [facility] 10-14-2022 11:29-0400 Body temperature 97 [degF] Vidya [facility] 10-14-2022 11:29-0400 Diastolic blood pressure 80 mm[Hg] Vidya [facility] 10-14-2022 11:29-0400 Heart rate 90 /min Vidya [facility] 10-14-2022 11:29-0400 Respiratory rate 16 /min Vidya [facility] 10-14-2022 11:29-0400 SaO2% (BldA) [Mass fraction] 97 % Vidya [facility] 10-14-2022 11:29-0400 Systolic blood pressure 132 mm[Hg] Vidya [facility] 10-13-2022 10:37-0400 Body temperature 97 [degF] Conchis Hoyt RN [facility] 10-13-2022 10:37-0400 Diastolic blood pressure 70 mm[Hg] Conchis Hoyt RN [facility] 10-13-2022 10:37-0400 Heart rate 83 /min Conchis Hoyt RN [facility] 10-13-2022 10:37-0400 Respiratory rate 16 /min Conchis Hoyt RN [facility] 10-13-2022 10:37-0400 SaO2% (BldA) [Mass fraction] 97 % Conchis Hoyt RN [facility] 10-13-2022 10:37-0400 Systolic blood pressure 140 mm[Hg] Conchis Hoyt RN [facility] 10-12-2022 10:58-0400 Body temperature 97.7 [degF] [facility] 10-12-2022 10:58-0400 Diastolic blood pressure 72 mm[Hg] Vidya [facility] 10-12-2022 10:58-0400 Heart rate 86 /min Vidya [facility] 10-12-2022 10:58-0400 Respiratory rate 16 /min Vidya [facility] 10-12-2022 10:58-0400 SaO2% (BldA) [Mass fraction] 97 % [facility] 10-12-2022 10:58-0400 Systolic blood pressure 122 mm[Hg] Vidya [facility] 10-11-2022 14:01-0400 Body temperature 98.2 [degF] Blanca Lorenz RN [facility] 06-20-2023 14:01-0400 Diastolic blood pressure 70 mm[Hg] Blanca Lorenz RN [facility] 10-11-2022 14:01-0400 Heart rate 80 /min Blanca Lorenz RN [facility] 10-11-2022 14:01-0400 Respiratory rate 18 /min Blanca Lorenz RN [facility] 10-11-2022 14:01-0400 SaO2% (BldA) [Mass fraction] 98 % Blanca Lorenz RN [facility] 10-11-2022 14:01-0400 Systolic blood pressure 130 mm[Hg] Blanca Lorenz RN [facility] 10-10-2022 12:14-0400 Body temperature 97.7 [degF] Vidya [facility] 10-10-2022 12:14-0400 Diastolic blood pressure 79 mm[Hg] Vidya [facility] 10-10-2022 12:14-0400 Heart rate 80 /min Vidya [facility] 10-10-2022 12:14-0400 Respiratory rate 16 /min Vidya [facility] 10-10-2022 12:14-0400 SaO2% (BldA) [Mass fraction] 97 % Vidya [facility] 10-10-2022 12:14-0400 Systolic blood pressure 122 mm[Hg] Vidya [facility] 10-07-2022 11:03-0400 Body temperature 97.7 [degF] Vidya [facility] 10-07-2022 11:03-0400 Diastolic blood pressure 78 mm[Hg] Vidya [facility] 10-07-2022 11:03-0400 Heart rate 96 /min Vidya [facility] 10-07-2022 11:03-0400 Respiratory rate 16 /min Vidya [facility] 10-07-2022 11:03-0400 SaO2% (BldA) [Mass fraction] 98 % Vidya [facility] 10-07-2022 11:03-0400 Systolic blood pressure 122 mm[Hg] Vidya [facility] 10-06-2022 14:13-0400 Body temperature 96.69 [degF] Jody Pride LPN [facility] 10-06-2022 14:13-0400 Diastolic blood pressure 64 mm[Hg] Jody Pride [facility] 10-06-2022 14:13-0400 Heart rate 83 /min Jody Pride [facility] 10-06-2022 14:13-0400 Respiratory rate 18 /min Jody Pride [facility] 10-06-2022 14:13-0400 SaO2% (BldA) [Mass fraction] 96 % Jody Pride [facility] 10-06-2022 14:13-0400 Systolic blood pressure 113 mm[Hg] Jody Pride [facility] 10-05-2022 11:10-0400 Body temperature 97.5 [degF] Brody De Leon PT [facility] 10-05-2022 11:10-0400 Diastolic blood pressure 59 mm[Hg] Brody De Leon PT [facility] 10-05-2022 11:10-0400 Heart rate 79 /min Brody De Leon PT [facility] 10-05-2022 11:10-0400 Respiratory rate 16 /min Brody De Leon PT [facility] 10-05-2022 11:10-0400 SaO2% (BldA) [Mass fraction] 93 % Brody De Leon PT [facility] 10-05-2022 11:10-0400 Systolic blood pressure 112 mm[Hg] Brody De Leon PT [facility] 10-04-2022 13:26-0400 Body height 198.1 cm Fernando Erie [facility] 10-04-2022 13:26-0400 Body temperature 98.49 [degF] Fernando Loza RN [facility] 10-04-2022 13:26-0400 Diastolic blood pressure 60 mm[Hg] Fernando Loza RN [facility] 10-04-2022 13:26-0400 Heart rate 84 /min Fernando Loza RN [facility] 10-04-2022 13:26-0400 Respiratory rate 18 /min Fernando Loza RN [facility] 10-04-2022 13:26-0400 SaO2% (BldA) [Mass fraction] 99 % Fernando Loza RN [facility] 10-04-2022 13:26-0400 Systolic blood pressure 120 mm[Hg] Fernando Loza RN [facility] 09-23-2022 14:31-0400 Body height 167.6 cm José Miguel Petit MD Work Phone: [facility] 09-23-2022 14:31-0400 Body mass index (BMI) [Ratio] 28.89 kg/m2 José Miguel Petit MD Work Phone: [facility] 09-23-2022 14:31-0400 Body weight 81.19 kg José Miguel Petit MD Work Phone: [facility] 09-23-2022 14:31-0400 Diastolic blood pressure 73 mm[Hg] José Miguel Petit MD Work Phone: [facility] 09-23-2022 14:31-0400 Heart rate 77 /min José Miguel Petit MD Work Phone: [facility] 09-23-2022 14:31-0400 Systolic blood pressure 155 mm[Hg] José Miguel Petit MD Work Phone: [facility] 09-21-2022 10:34-0400 Body height 167.6 cm Carlos Reyes MD Work Phone: [facility] 09-21-2022 10:34-0400 Body mass index (BMI) [Ratio] 28.94 kg/m2 Carlos Reyes MD Work Phone: [facility] 09-21-2022 10:34-0400 Body weight 81.33 kg Carlos Reyes MD Work Phone: [facility] 09-21-2022 10:34-0400 Diastolic blood pressure 80 mm[Hg] Carlos Reyes MD Work Phone: [facility] 09-21-2022 10:34-0400 Heart rate 80 /min Carlos Reyes MD Work Phone: [facility] 09-21-2022 10:34-0400 SaO2% (BldA) [Mass fraction] 95 % Carlos Reyes MD Work Phone: [facility] 09-21-2022 10:34-0400 Systolic blood pressure 147 mm[Hg] Carlos Reyes MD Work Phone: [facility] 07-15-2022 08:20-0400 Body height 167.6 cm Sarah Ricketts CNP Work Phone: [facility] 07-15-2022 08:20-0400 Body mass index (BMI) [Ratio] 27.44 kg/m2 Sarah Ricketts CNP Work Phone: [facility] 07-15-2022 08:20-0400 Body weight 77.11 kg Sarah Ricketts CNP Work Phone: [facility] 06-29-2022 12:58-0500 Body height 167.6 cm Sarah Ricketts CNP Work Phone: [facility] 06-29-2022 12:58-0500 Body mass index (BMI) [Ratio] 27.44 kg/m2 Sarah Ricketts CNP Work Phone: [facility] 06-29-2022 12:58-0500 Body weight 77.11 kg Sarah Ricketts CNP Work Phone: [facility] 05-26-2022 13:25-0500 Body height 167.64 cm Prakash Thibodeauxcel Work Phone: [facility] Work Phone: 05-26-2022 13:25-0500 Body mass index (BMI) [Ratio] 28.97 kg/m2 Prakash Worthington Stencel Work Phone: [facility] Work Phone: 05-26-2022 13:25-0500 Body surface area Derived from formula 1.91 m2 Prakash Worthington Stencel Work Phone: [facility] Work Phone: 05-26-2022 13:25-0500 Body weight 81.42 kg Prakash D Stencel Work Phone: [facility] Work Phone: 05-26-2022 13:25-0500 Diastolic blood pressure 78 mm[Hg] Prakash D Stencel Work Phone: [facility] Work Phone: 05-26-2022 13:25-0500 Heart rate 91 /min Prakash Thibodeauxcel Work Phone: [facility] Work Phone: 05-26-2022 13:25-0500 SaO2% (BldA) [Mass fraction] 98 % Prakash Weller Work Phone: [facility] Work Phone: 05-26-2022 13:25-0500 Systolic blood pressure 132 mm[Hg] Prakash Thibodeauxcel Work Phone: [facility] Work Phone: 11-24-2021 08:47-0400 Body height 167.64 cm Prakash Weller Work Phone: [facility] Work Phone: 11-24-2021 08:47-0400 Body mass index (BMI) [Ratio] 28.98 kg/m2 Prakash Weller Work Phone: [facility] Work Phone: 11-24-2021 08:47-0400 Body surface area Derived from formula 1.91 m2 Prakash Weller Work Phone: [facility] Work Phone: 11-24-2021 08:47-0400 Body weight 81.45 kg Prakash Weller Work Phone: [facility] Work Phone: 11-24-2021 08:47-0400 Diastolic blood pressure 70 mm[Hg] Prakash Thibodeauxcel Work Phone: [facility] Work Phone: 11-24-2021 08:47-0400 Heart rate 97 /min Prakash Thibodeauxcel Work Phone: [facility] Work Phone: 08-03-2022 08:47-0400 SaO2% (BldA) [Mass fraction] 97 % Prakash Weller Work Phone: [facility] Work Phone: 11-24-2021 08:47-0400 Systolic blood pressure 140 mm[Hg] Prakash Weller Work Phone: [facility] Work Phone: 06-01-2021 13:49-0500 Body height 167.64 cm Prakash Weller Work Phone: [facility] Work Phone: 06-01-2021 13:49-0500 Body mass index (BMI) [Ratio] 29.55 kg/m2 Prakash Weller Work Phone: [facility] Work Phone: 06-01-2021 13:49-0500 Body surface area Derived from formula 1.93 m2 Prakash Weller Work Phone: [facility] Work Phone: 06-01-2021 13:49-0500 Body temperature 96.2 [degF] Prakash Weller Work Phone: [facility] Work Phone: 06-01-2021 13:49-0500 Body weight 83.04 kg Prakash Weller Work Phone: [facility] Work Phone: 06-01-2021 13:49-0500 Diastolic blood pressure 62 mm[Hg] Prakash Weller Work Phone: [facility] Work Phone: 06-01-2021 13:49-0500 Heart rate 80 /min Prakash Weller Work Phone: [facility] Work Phone: 06-01-2021 13:49-0500 SaO2% (BldA) [Mass fraction] 95 % Prakash Weller Work Phone: [facility] Work Phone: 06-01-2021 13:49-0500 Systolic blood pressure 128 mm[Hg] Prakash Weller Work Phone: [facility] Work Phone: 12-11-2020 09:49-0400 Diastolic blood pressure 70 mm[Hg] Prakash Weller Work Phone: [facility] Work Phone: 12-11-2020 09:49-0400 Systolic blood pressure 128 mm[Hg] Prakash Thibodeauxcel Work Phone: [facility] Work Phone: 12-11-2020 09:05-0400 Body height 167.64 cm Prakash Weller Work Phone: [facility] Work Phone: 12-11-2020 09:05-0400 Body mass index (BMI) [Ratio] 29.47 kg/m2 Prakash Weller Work Phone: [facility] Work Phone: 12-11-2020 09:05-0400 Body surface area Derived from formula 1.92 m2 Prakash Weller Work Phone: [facility] Work Phone: 12-11-2020 09:05-0400 Body temperature 97.7 [degF] Prakash Weller Work Phone: [facility] Work Phone: 12-11-2020 09:05-0400 Body weight 82.81 kg Prakash Weller Work Phone: [facility] Work Phone: 12-11-2020 09:05-0400 Diastolic blood pressure 72 mm[Hg] Prakash Weller Work Phone: [facility] Work Phone: 12-11-2020 09:05-0400 Heart rate 78 /min Prakash Weller Work Phone: [facility] Work Phone: 12-11-2020 09:05-0400 SaO2% (BldA) [Mass fraction] 98 % Prakash Weller Work Phone: [facility] Work Phone: 12-11-2020 09:05-0400 Systolic blood pressure 148 mm[Hg] Prakash Weller Work Phone: [facility] Work Phone: Encounters Encounter Date Encounter Type Care Provider Facility Start: 06-05-2023 End: 06-05-2023 ambulatory [facility] Start: 05-30-2023 End: 05-31-2023 ambulatory [facility] Start: 05-26-2023 End: 05-27-2023 ambulatory JUAN LUIS BEST [facility] Start: 05-26-2023 End: 05-26-2023 Subsequent hospital visit by physician Juan Luis Best DO Work Phone: [facility] Procedures Date Procedure Procedure Detail Performing Clinician Start: 06-05-2023 FOLLOW UP IN FAMILY MEDICINE PRAKASH WELLER Start: 05-30-2023 CBC panel - Blood by Automated count PRAKASH WELLER Start: 05-30-2023 Comprehensive metabo lic 2000 panel - Serum or Plasma PRAKASH WELLER Start: 05-30-2023 Lipid panel PRAKASH BLACKMAN Start: 05-30-2023 Thyrotropin [Units/v olume] in Serum or Plasma PRAKASH WELLER Start: 05-26-2023 DISCHARGE PATIENT JUAN LUIS ABELINO Start: 05-26-2023 SURGICAL PATHOLOGY EXAM JUAN LUIS BEST Start: 05-26-2023 PLACE IN OUTPATIENT/ HOSPITAL AMBULATORY SURGERY JUAN LUIS BEST Start: 05-26-2023 Colsc flx w/rmvl of tumor polyp lesion snare tq Historical Provider Work Phone: Start: 05-26-2023 Colonoscopy Juan Luis rao DO Work Phone: Start: 11-22-2022 Thyrotropin [Units/v olume] in Serum or Plasma Prakash Weller MD Work Phone: Start: 07-04-2022 Mammography Prakash Blackman MD Work Phone: Start: 06-30-2022 Arthrocentesis aspir &/inj major jt/bursa w/o us Sarah Ricketts [employer] Work Phone: Start: 05-19-2022 Lipid 1996 panel - S sammi or Plasma Prakash Weller MD Work Phone: Start: 03-02-2020 Mri brain brain stem w/o w/contrast material External Transcribed Start: 03-02-2020 Creatinine [Mass/vol ume] in Blood Bandar Bernardo Start: 05-07-2018 Colonoscopy Prakash Blackman MD Work Phone: Cataract surgery Prakash Menon ncdavid Colonoscopic polypectomy Jhon hael Stencel Colonoscopy Prakash Stencel Decompression of med glory nerve Prakash Stentee Destructive procedure Michae l Stencel Ligation of fallopian tube M ichael Stencel Release of trigger finger Mi chael Stencel Repair of musculoten dinous cuff of shoulder Prakash Stencel Repair of retina for retinal detachment Prakash Thibodeauxcel Urethropexy Prakash Weller Plan of Treatment Date Care Activity Detail Author Start: 05-07-2028 Screening for malignant neoplasm of colon [facility] Start: 05-19-2027 Lipid panel Lipid Panel [facility] Start: 05-25-2026 Screening for malignant neoplasm of colon [facility] Start: 11-30-2023 Medicare Annual Wellness Visit Medicare Annual Wellness Visit (AWV) [facility] Start: 11-23-2023 Thyroid stimulating hormone measurement TSH Level [facility] Start: 07-05-2023 Screening for malignant neoplasm of breast Mammogram [facility] Start: 06-05-2023 End: 06-05-2023 Patient encounter procedure 06/05/2023 10:40 AM EST Office Visit [facility] [address] [place] [address] Prakash Weller MD [address] [place] [address] [facility] Start: 12-23-2022 COVID-19 Vaccine ( season) COVID-19 Vaccine ( season) [facility] Start: 12-23-2022 Influenza vaccination [facility] Start: 11-28-2022 End: 11-29-2023 CBC panel - Blood by Automated count CBC Lab Routine Benign hypertension Expected: 11/28/2022 (Approximate), Expires: 11/29/2023 [facility] Service Area Work Phone: Immunizations Immunization Date Immunization Notes Care Provider [facility] 02-06-2023 Influenza, Seasonal, Quadrivalent, Adjuvanted Juan Luis Thomlorena DO Work Phone: [facility] 02-08-2022 Fluad Quadrivalent 0 .5 ML Intramuscular Prefilled Syringe Prakash Weller Work Phone: [facility] Payers Date Payer Category Payer [employer] others[employer] FOR LIFE [id number] 2022-Present [address] [place] [address] [id number] 2022 [employer] [id number] 2022 [employer] [id number] 2018 [employer] others) [id number] 2017 Unknown [place] [employer] [place] [id number] 2017-Present [id number]. [id number] 2017 Unknown 2017 Unknown [id number] 2016 Medicare [id number] 2016 Medicare MEDICARE MEDICAR E PART A & B [id number] 2016-Present [place] [id number]. [id number] 2016 Medicare [id number]. 1.13.385.2. [id number] 1951 Unknown [id number] 2.16.840.1.937834.3.579.2. 903 1951 Unknown [id number] 2.16.840.1.245645.3.579.2. 90 1951 Unknown [id number] 2.16.840.1.215916.3.579.2. 903 1951 Unknown [id number] 2.16.840.1.271588.3.579.2. 90 1951 Unknown [id number] 2.16.840.1.453311.3.579.2. 903 1951 Unknown [id number] 2.16.840.1.670795.3.579.2. 903 1951 Unknown [id number] 2.16.840.1.131452.3.579.2. 903 1951 Unknown [id number] 2.16.840.1.433254.3.579.2. 903 1951 Unknown [id number] 2.16.840.1.171836.3.579.2. 903 1951 Unknown [id number] 2.16.840.1.232484.3.579.2. 90 1951 Unknown [id number] 2.16.840.1.925671.3.579.2. 903 1951 Unknown [id number] 2.16.840.1.980202.3.579.2. 90 1951 Unknown [id number] 2.16.840.1.056423.3.579.2. 1951 Unknown [id number] 2.16.840.1.059290.3.579.2. 1951 Unknown [id number] 2.16.840.1.246249.3.579.2. 1951 Unknown [id number] 2.16.840.1.728548.3.579.2. 1951 Unknown [id number] 2.16.840.1.558398.3.579.2. 1951 Unknown [id number] 2.16.840.1.388092.3.579.2 1951 Unknown [id number] 2.840.1.946102.3.579.2 1951 Unknown [id number] 2.16.840.1.286024.3.579.2. 1951 Unknown [id number] 2.16840.1.576257.3.579.2 1951 Unknown [id number] 2.840.1.455061.3.579.2. 1951 Unknown [id number] 2.840.1.196653.3.579.2. 1951 Unknown [id number] 2.16.840.1.947756.3.579.2. 356 1951 Unknown [id number] 2.16.840.1.870781.3.579.2. 356 1951 Unknown [id number] 2.16.840.1.844920.3.579.2. 2 1951 Unknown [id number] 2.16.840.1.244355.3.579.2. 1951 Unknown [id number] 2.16.840.1.900231.3.579.2. 903 1951 Unknown [id number] 2.16.840.1.772661.3.579.2. 903 1951 Unknown [id number] 2.16.840.1.476191.3.579.2. 903 1951 Unknown [id number] 2.16.840.1.779304.3.579.2. 903 1951 Unknown [id number] 2.16.840.1.772271.3.579.2. 903 1951 Unknown [id number] 2.16.840.1.133789.3.579.2. 903 1951 Unknown [id number] 2.16.840.1.372895.3.579.2. 90 1951 Unknown [id number] 2.16.840.1.199664.3.579.2. 903 1951 Unknown [id number] 2.16.840.1.194573.3.579.2. 903 1951 Unknown [id number] 2.16.840.1.983234.3.579.2. 903 1951 Unknown [id number] 2.16.840.1.010611.3.579.2. 1245 1951 Unknown [id number] 2.16.840.1.671387.3.579.2. 1244 1951 Unknown [id number] 2.16.840.1.097265.3.579.2. 124 1951 Unknown [id number] 2.16.840.1.531740.3.579.2. 1243 [employer] [facility] [id number] Medicare [id number] Unknown [id number] Social History Date Type Detail Facility Start: 10-16-2017 End: 11-28-2022 Tobacco smoking status NMIS Never smoker [facility] Start: 1950 Sex Assigned At Not on file [facility] Start: 01-01-2018 End: 11-28-2022 Tobacco use and exposure Never used [facility] Start: 01-01-2018 End: 05-26-2023 Alcohol intake Current drinker of alcohol (finding) [facility] Start: 06-19-2022 End: 05-26-2023 Exposure to SARS-CoV-2 (event) Not sure [facility] Start: 07-16-2022 End: 11-28-2022 Consumes alcohol occasionally [facility]umes alcohol [facility] Work Phone: Start: 07-16-2022 End: 11-28-2022 Tobacco use panel [facility] Start: 01-01-2018 Gender identity Identifies as female gender (finding) [facility] Start: 01-01-2018 Sexual orientation Heterosexual (finding) [facility] Start: 09-15-2022 Alcohol Comment occasionally [facility] Start: 11-28-2022 Alcohol Comment occasional [facility] Work Phone: Medical Equipment Procedure Code Equipment Code Equipment Origin al Text Equipment Identifier Dates Patella 32mm Asymmetric Metal-Backed Tritanium Triathlon - [id number] [facility] Start: 10-03-2022 Functional Status Date Assessment Result Facility NEGATED: Highlighted row Functional performance Functional status health issues are not documented Disease [facility] Work Phone: Mental Status Date Assessment Result Facility NEGATED: Highlighted row Cognitive function [Interpretation] Cognitive status health issues are not documented Disease [facility] Work Phone: Clinical Notes 06-30-2022 to 05-26-2023 Discharge InstructionsJuan Luis Best, - 05/26/2023 8:00 AM Almaz Best, DO - 05/26/2023 8:00 AM Jake Weller MD - 11/28/2022 10:20 AM Darrick Weller MD - 11/28/2022 10:20 AM EDT Note Date & Type Note Facility 05-26-2023 Hospital Discharge instructions Larisa Castrejon RN - 05/26/2023 8:56 AM EST Patient Instructions after a Colonoscopy The anesthetics, sedatives or narcotics which were given to you today will be acting in your body for the next 24 hours, so you might feel a little sleepy or groggy. This feeling should slowly wear off. Carefully read and follow the instructions. You received sedation today: - Do not drive or operate any machinery or power tools of any kind. - No alcoholic beverages today, not even beer or wine. - Do not make any important decisions or sign any legal documents. - No over the counter medications that contain alcohol or that may cause drowsiness. - Do not make any important decisions or sign any legal documents. While it is common to experience mild to moderate abdominal distention, gas, or belching after your procedure, if any of these symptoms occur following discharge from the GI Lab or within one week of having your procedure, call the [facility] to be advised whether a visit to your nearest Urgent Care or Emergency Department is indicated. Take this paper with you if you go. - If you develop an allergic reaction to the medications that were given during your procedure such as difficulty breathing, rash, hives, severe nausea, vomiting or lightheadedness. - If you experience chest pain, shortness of breath, severe abdominal pain, fevers and chills. -If you develop signs and symptoms of bleeding such as blood in your spit, if your stools turn black, tarry, or bloody - If you have not urinated within 8 hours following your procedure. - If your IV site becomes painful, red, inflamed, or looks infected. If you received a biopsy/polypectomy/sphincterotom y the following instructions apply below: x_ Do not use Aspirin containing products, non-steroidal medications or anti-coagulants for one week following your procedure. (Examples of these types of medications are: Advil, Arthrotec, Aleve, Coumadin, Ecotrin, Heparin, Ibuprofen, Indocin, Motrin, Naprosyn, Nuprin, Plavix, Vioxx, and Voltarin, or their generic forms. This list is not all-inclusive. Check with your physician or pharmacist before resuming medications.) x__ Eat a soft diet today. Avoid foods that are poorly digested for the next 24 hours. These foods would include: nuts, beans, lettuce, red meats, and fried foods. Start with liquids and advance your diet as tolerated, gradually work up to eating solids. __ Do not have a Barium Study or Enema for one week. Your physician recommends the additional following instructions: -You have a contact number available for emergencies. The signs and symptoms of potential delayed complications were discussed with you. You may return to normal activities tomorrow. -Resume your previous diet. -Continue your present medications. -We are waiting for your pathology results. -Your physician has recommended a repeat colonoscopy (date to be determined after pending pathology results are reviewed) for surveillance based on pathology results. -The findings and recommendations have been discussed with you. -The findings and recommendations were discussed with your family. - Please see Medication Reconciliation Form for new medication/medications prescribed. If you experience any problems or have any questions following discharge from the GI Lab, please call: Dr. Best's office documented in this encounter [facility] Work Phone: 05-26-2023 History and physical note History Of Present Illness Junie Driver is a 72 y.o. female presenting with colon cancer screening. Past Medical History Past Medical History: Diagnosis Date Anxiety Depression Disease of thyroid gland Hypertension Personal history of other medical treatment History of bone density study Personal history of other medical treatment History of mammogram Surgical History Past Surgical History: Procedure Laterality Date MR HEAD ANGIO W AND WO IV CONTRAST 03/02/2020 MR HEAD ANGIO W AND WO IV CONTRAST 03/02/2020 OTHER SURGICAL HISTORY 06/04/2019 Retinal detachment repair OTHER SURGICAL HISTORY 06/04/2019 Colonoscopy complete for polypectomy OTHER SURGICAL HISTORY 06/04/2019 Ablation OTHER SURGICAL HISTORY 06/04/2019 Cataract surgery OTHER SURGICAL HISTORY 06/04/2019 Rotator cuff repair OTHER SURGICAL HISTORY 06/04/2019 Carpal tunnel surgery OTHER SURGICAL HISTORY 06/04/2019 Colonoscopy OTHER SURGICAL HISTORY 06/04/2019 Urethropexy OTHER SURGICAL HISTORY 06/04/2019 Trigger finger repair OTHER SURGICAL HISTORY 06/04/2019 Tubal ligation TOTAL KNEE ARTHROPLASTY Left 10/03/2022 Social History She reports that she has never smoked. She has never used smokeless tobacco. She reports current alcohol use. Drug use questions deferred to the physician. Family History Family History Problem Relation Name Age of Onset Hypertension Mother Brain cancer Mother Lung cancer Mother Colon polyps Father Hypertension Father Prostate cancer Father Depression Sister Hypothyroidism Sister Allergies Allergies Allergen Reactions Amlodipine Swelling Lisinopril Cough and Other Sultrin Triple Sulfa Swelling and Rash Review of Systems Pre-sedation Evaluation: ASA Classification - ASA 2 - Patient with mild systemic disease with no functional limitations Mallampati Score - II (hard and soft palate, upper portion of tonsils anduvula visible) Physical Exam Vitals and nursing note reviewed. Constitutional: Appearance: Normal appearance. HENT: Head: Normocephalic. Mouth/Throat: Mouth: Mucous membranes are moist. Pharynx: Oropharynx is clear. Eyes: Conjunctiva/sclera: Conjunctivae normal. Pupils: Pupils are equal, round, and reactive to light. Cardiovascular: Pulses: Normal pulses. Heart sounds: Normal heart sounds. Pulmonary: Effort: Pulmonary effort is normal. Breath sounds: Normal breath sounds. Abdominal: General: Abdomen is flat. Bowel sounds are normal. Palpations: Abdomen is soft. Musculoskeletal: Cervical back: Normal range of motion and neck supple. Skin: General: Skin is warm and dry. Neurological: General: No focal deficit present. Mental Status: She is alert and oriented to person, place, and time. Psychiatric: Behavior: Behavior normal. Last Recorded Vitals Blood pressure (!) 152/91, pulse 97, temperature 36.3 C (97.4 F), temperature source Tympanic, resp. rate 16, height 1.676 m (5' 5.98 ), weight 80 kg (176 lb 6.4 oz), SpO2 100 %. Assessment/Plan Problem List Items Addressed This Visit None Visit Diagnoses Encounter for screening for malignant neoplasm of colon Relevant Orders Colonoscopy Screening Colonoscopy Screening CONTENT PRODUCTION SPECIALIST/Current Medications: (Not in a hospital admission) Current Outpatient Medications Medication Sig Dispense Refill ascorbic acid (Vitamin C) 1,000 mg tablet Take 1 tablet (1,000 mg) by mouth once daily. cyanocobalamin (Vitamin B-12) 1,000 mcg tablet Take 1 tablet (1,000 mcg) by mouth once daily. escitalopram (Lexapro) 10 mg tablet Take 1 tablet (10 mg) by mouth once daily. 90 tablet 3 levothyroxine (Synthroid, Levoxyl) 100 mcg tablet Take 1 tablet (100 mcg) by mouth once daily. losartan-hydrochlorothiazide (Hyzaar) 100-25 mg tablet Take 1 tablet by mouth once daily. multivitamin tablet Take 1 tablet by mouth once daily. omeprazole (PriLOSEC) [address] capsule Take 1 capsule (20 mg) by mouth 3 (three) times a week. potassium chloride CR 10 mEq ER tablet Take 1 tablet (10 mEq) by mouth once daily. 90 tablet 3 vit A,C and H-raykvh-gkrtfdxd (Ocuvite) 300 mcg-200 mg-27 mg-2 mg tablet EPINEPHrine 0.3 mg/0.3 mL injection syringe 0.3 mL (0.3 mg). As Directed No current facility-administered medications for this encounter. Juan Luis Best DO [facility] Work Phone: 05-26-2023 History and physical note History Of Present Illness Junie Driver is a 72 y.o. female presenting with colon cancer screening. Past Medical History Past Medical History: Diagnosis Date Anxiety Depression Disease of thyroid gland Hypertension Personal history of other medical treatment History of bone density study Personal history of other medical treatment History of mammogram Surgical History Past Surgical History: Procedure Laterality Date MR HEAD ANGIO W AND WO IV CONTRAST 03/02/2020 MR HEAD ANGIO W AND WO IV CONTRAST 03/02/2020 OTHER SURGICAL HISTORY 06/04/2019 Retinal detachment repair OTHER SURGICAL HISTORY 06/04/2019 Colonoscopy complete for polypectomy OTHER SURGICAL HISTORY 06/04/2019 Ablation OTHER SURGICAL HISTORY 06/04/2019 Cataract surgery OTHER SURGICAL HISTORY 06/04/2019 Rotator cuff repair OTHER SURGICAL HISTORY 06/04/2019 Carpal tunnel surgery OTHER SURGICAL HISTORY 06/04/2019 Colonoscopy OTHER SURGICAL HISTORY 06/04/2019 Urethropexy OTHER SURGICAL HISTORY 06/04/2019 Trigger finger repair OTHER SURGICAL HISTORY 06/04/2019 Tubal ligation TOTAL KNEE ARTHROPLASTY Left 10/03/2022 Social History She reports that she has never smoked. She has never used smokeless tobacco. She reports current alcohol use. Drug use questions deferred to the physician. Family History Family History Problem Relation Name Age of Onset Hypertension Mother Brain cancer Mother Lung cancer Mother Colon polyps Father Hypertension Father Prostate cancer Father Depression Sister Hypothyroidism Sister Allergies Allergies Allergen Reactions Amlodipine Swelling Lisinopril Cough and Other Sultrin Triple Sulfa Swelling and Rash Review of Systems Pre-sedation Evaluation: ASA Classification - ASA 2 - Patient with mild systemic disease with no functional limitations Mallampati Score - II (hard and soft palate, upper portion of tonsils anduvula visible) Physical Exam Vitals and nursing note reviewed. Constitutional: Appearance: Normal appearance. HENT: Head: Normocephalic. Mouth/Throat: Mouth: Mucous membranes are moist. Pharynx: Oropharynx is clear. Eyes: Conjunctiva/sclera: Conjunctivae normal. Pupils: Pupils are equal, round, and reactive to light. Cardiovascular: Pulses: Normal pulses. Heart sounds: Normal heart sounds. Pulmonary: Effort: Pulmonary effort is normal. Breath sounds: Normal breath sounds. Abdominal: General: Abdomen is flat. Bowel sounds are normal. Palpations: Abdomen is soft. Musculoskeletal: Cervical back: Normal range of motion and neck supple. Skin: General: Skin is warm and dry. Neurological: General: No focal deficit present. Mental Status: She is alert and oriented to person, place, and time. Psychiatric: Behavior: Behavior normal. Last Recorded Vitals Blood pressure (!) 152/91, pulse 97, temperature 36.3 C (97.4 F), temperature source Tympanic, resp. rate 16, height 1.676 m (5' 5.98 ), weight 80 kg (176 lb 6.4 oz), SpO2 100 %. Assessment/Plan Problem List Items Addressed This Visit None Visit Diagnoses Encounter for screening for malignant neoplasm of colon Relevant Orders Colonoscopy Screening Colonoscopy Screening CONTENT PRODUCTION SPECIALIST/Current Medications: (Not in a hospital admission) Current Outpatient Medications Medication Sig Dispense Refill ascorbic acid (Vitamin C) 1,000 mg tablet Take 1 tablet (1,000 mg) by mouth once daily. cyanocobalamin (Vitamin B-12) 1,000 mcg tablet Take 1 tablet (1,000 mcg) by mouth once daily. escitalopram (Lexapro) 10 mg tablet Take 1 tablet (10 mg) by mouth once daily. 90 tablet 3 levothyroxine (Synthroid, Levoxyl) 100 mcg tablet Take 1 tablet (100 mcg) by mouth once daily. losartan-hydrochlorothiazide (Hyzaar) 100-25 mg tablet Take 1 tablet by mouth once daily. multivitamin tablet Take 1 tablet by mouth once daily. omeprazole (PriLOSEC) [address] capsule Take 1 capsule (20 mg) by mouth 3 (three) times a week. potassium chloride CR 10 mEq ER tablet Take 1 tablet (10 mEq) by mouth once daily. 90 tablet 3 vit A,C and X-aezvhs-qhwfdfel (Ocuvite) 300 mcg-200 mg-27 mg-2 mg tablet EPINEPHrine 0.3 mg/0.3 mL injection syringe 0.3 mL (0.3 mg). As Directed No current facility-administered medications for this encounter. Juan Luis Best DO documented in this encounter [facility] Work Phone: 11-28-2022 History of Present illness Narrative Subjective Reason for Visit: Junie Driver is an 72 y.o. female here for a Medicare Wellness visit. Past Medical, Surgical, and Family History reviewed and updated in chart. Reviewed all medications by prescribing practitioner or clinical pharmacist (such as prescriptions, OTCs, herbal therapies and supplements) and documented in the medical record. [facility] Patient Care Team: Prakash Weller MD as PCP - General Prakash Weller MD as PCP [facility] Attributed Provider Review of Systems Objective Vitals: BP 134/74 Pulse 98 Ht 1.676 m (5' 6 ) Wt 81.7 kg (180 lb 3.2 oz) SpO2 96% BMI 29.09 kg/m Physical Exam Assessment/Plan Problem List Items Addressed This Visit None Visit Diagnoses Routine general medical examination at health care facility - Primary Subjective Patient ID: Junie Driver is a 72 y.o. female who presents for Medicare Annual Wellness Visit Subsequent (6 mo fu rev labs). HPI Had LTKR with MB. In September , now 2 months, can do all iadls HTN-Takes and tolerates meds without side effects. No alcohol. no tobacco. reg exercise. low salt. Reviewed recommendation for 150 minutes of exercise per week including 2 days of weight training if over age 50 Hyperlipidemia- is not on a statin and a prudent diet. Mood is good and to stay on rx. Hypothyroid- is euthyroid on replacement. Thyroid ros is unremarkable. Colonn in 2023 at 5 yr Review of Systems General-no fatigue weight to within 10 pounds ENT no problems with vision swallowing Cardiac no chest pains palpitations change in exercise tolerance or capacity Pulmonary no cough shortness of breath GI no heartburn or abdominal pain Musculoskeletal no joint pains Objective BP 134/74 Pulse 98 Ht 1.676 m (5' 6 ) Wt 81.7 kg (180 lb 3.2 oz) SpO2 96% BMI 29.09 kg/m Physical Exam General: Alert, No acute distress. Appears stated age Eye: Pupils are equal, round and reactive to light, Extraocular movements are intact, Normal conjunctiva. Neck: Supple, Non-tender, No carotid bruit, No jugular venous distention, No lymphadenopathy, No thyromegaly. Respiratory: Lungs are clear to auscultation, Respirations are non-labored, Breath sounds are equal. Cardiovascular: Normal rate, Regular rhythm, No murmur. Gastrointestinal: Soft, Non-tender, No organomegaly. No solid or pulsatile mass Integumentary: Warm, Dry. No concerning lesions on exposed areas Neurologic: Alert, Oriented. Gross and fine motor intact, CN 2-12 intact Psychiatric: Cooperative, Appropriate mood & affect. Assessment/Plan Problem List Items Addressed This Visit Acquired hypothyroidism Relevant Orders Thyroid Stimulating Hormone Follow Up In Primary Care - Established Benign hypertension Relevant Orders CBC Comprehensive Metabolic Panel Follow Up In Primary Care - Established Hyperlipidemia Relevant Orders Lipid Panel Follow Up In Primary Care - Established Mixed anxiety depressive disorder Relevant Medications escitalopram (Lexapro) 10 mg tablet Other Relevant Orders Follow Up In Primary Care - Established Osteoarthritis of left knee Other Visit Diagnoses Routine general medical examination at health care facility - Primary documented in this encounter [facility] Work Phone: 11-18-2022 History of Present illness Narrative [facility] OUTPATIENT REHABILITATION DAILY TREATMENT NOTE Today's Date 11/18/2022 Patient Name: Junie Barros Date of : 1950 Current Visit #: 11 Authorized Visits: 199 Case Name: S/P Left TKR History: Pre-Treatment Pain Scale: 1 Symptoms: stabilized Functional Diagnosis: 1. Status post total left knee replacement Clinical Information: Subjective: Pt reports low pain and min sx's overall, states she is ready for DC Objective 1 Pt reports she is able to amb for an hour with min difficulty or sx's 2 Pt demos no difficulty with reciprocal stair amb 3 Pt reports avg pain of 1/10 or less on avg 4 pt demos 0-123 AAROM 5 FOTO = 76 6 Pt reports and demos ind with HEP and no questions at this time Treatments: Physical Therapy Exercise Log - 11/18/22 1259 OTHER Precautions/Contraindications Supervising PT: Tone Notes Visit 10 [id number] Therapeutic Exercise (96754) Intervention scifit L5 x 5 min Parameters Standing calf wedge, Hamstring stretches 3x20'' Intervention stairs reciprocal full flight x 1 - BOSU step-ups fwd/lat x10 Parameters Lateral retro, ambulation x 30 x 2 laps Intervention -- Parameters -- Intervention -- Parameters -- Intervention -- PT Treatment Times Therex Total Time 30 Direct Treatment Time 30 Total Treatment Time 30 Goals: Physical Therapy Ortho Goals: MOBILITY: Patient will be able to ambulate for 1 hour in community and ambulate on uneven surfaces without difficulty in 4 weeks. MOBILITY: Patient will be able to ascend/descend stairs reciprocally without difficulty in 4 weeks. IMPAIRMENT: Improve pain to 1/10 or less during prolonged standing, walking and negotiating uneven surfaces in 4 weeks IMPAIRMENT: Improve AROM of the Knee to 0-120 degrees in 4 weeks. OTHER: Patient will increase FOTO score from 58 to at least 70 to show MDC/MCII and expected functional outcome in 4 weeks. OTHER: Patient will be able to properly demonstrate independence with HEP in 1 week. Patient Education: Verbal HEP with patient verbalized understanding. Post-Treatment Pain Scale: 1 Assessment: Patient had an expected response to treatment. Skilled Intervention demonstrated by modifications of treatment per exercise log including assessment of patient's response and safety interventions per exercise log. Progress towards goals as expected. Plan for Next Visit: MIKEL Hernández PTA STATE LICENSE, [id number] documented in this encounter [facility] 11-14-2022 History of Present illness Narrative [facility] OUTPATIENT REHABIL[facility]ATION DAILY TREATMENT NOTE Today's Date 11/14/2022 Patient Name: Junie Barros Date of : 1950 Current Visit #: 9 Authorized Visits: 199 Case Name: S/P Left TKR History: Pre-Treatment Pain Scale: 2 Symptoms: stabilized Functional Diagnosis: 1. Status post total left knee replacement Clinical Information: Subjective: Pt reports low sx's overall and that she just has a sore spot on the distal lateral femur Objective Treatments: Physical Therapy Exercise Log - 11/14/22 1304 OTHER Precautions/Contraindications Supervising PT: Tone Notes Visit 8 [id number] Therapeutic Exercise (02217) Intervention scifit L5 x 5 min Parameters Standing calf wedge, Hamstring stretches 3x20'' Intervention stairs reciprocal full flight x 1 Parameters Lateral retro, ambulation x 30 x 2 laps Intervention Steamboats (abd, ext, flexion) - green miniband x10 B Parameters SLS excursions x 1 min B SLS Eyes closed x 1 min B Intervention shuttle squat 62# x20 SL 31# x2 x10 Parameters Heel slides 3''x20 (119 degrees) Intervention -- Parameters -- Intervention -- Parameters -- Modalities Modalities Vasopneumatic Treatment Parameters mod pressure 10 mins PT Treatment Times Therex Total Time 30 Modalities Total Time 10 Direct Treatment Time 40 Total Treatment Time 43 Goals: Physical Therapy Ortho Goals: MOBILITY: Patient will be able to ambulate for 1 hour in community and ambulate on uneven surfaces without difficulty in 4 weeks. MOBILITY: Patient will be able to ascend/descend stairs reciprocally without difficulty in 4 weeks. IMPAIRMENT: Improve pain to 1/10 or less during prolonged standing, walking and negotiating uneven surfaces in 4 weeks IMPAIRMENT: Improve AROM of the Knee to 0-120 degrees in 4 weeks. OTHER: Patient will increase FOTO score from 58 to at least 70 to show MDC/MCII and expected functional outcome in 4 weeks. OTHER: Patient will be able to properly demonstrate independence with HEP in 1 week. Patient Education: Verbal HEP with patient verbalized understanding. Post-Treatment Pain Scale: 2 Assessment: Patient had an expected response to treatment. Skilled Intervention demonstrated by modifications of treatment per exercise log including assessment of patient's response and safety interventions per exercise log. Progress towards goals as expected. Plan for Next Visit: Treatment Visit with focus on progressing as tolerated Trang Hernández PTA STATE LICENSE, [id number] documented in this encounter [facility] 11-09-2022 History of Present illness Narrative [facility] OUT[facility] REH[facility] DAILY TREATMENT NOTE Today's Date 11/09/2022 Patient Name: Junie Barros Date of : 1950 Current Visit #: 8 Authorized Visits: 199 Case Name: S/P Left TKR History: Pre-Treatment Pain Scale: 4 Symptoms: gradually improved Functional Diagnosis: 1. Status post total left knee replacement Clinical Information: Subjective: Pt reports continued increase in pain and stiffness following the addition of heel taps on the left LE last visit. Objective Treatments: Physical Therapy Exercise Log - 11/09/22 1301 OTHER Precautions/Contraindications Supervising PT: Tone Notes Visit 7 1:02 - 1:52 Therapeutic Exercise (35186) Intervention scifit L4 x 5 min Parameters Standing calf wedge, Hamstring stretches 3x20'' Intervention stairs reciprocal x 3 Step over x 10 Parameters Lateral (RTB), retro, ambulation x 30 x 2 laps Intervention TKE w/ mora tube 10x5 / Steamboats - L5 x10 Parameters -- Intervention shuttle squat 62# x20 SL 31# x2 x10 Parameters Heel slides 3''x20 (118 degrees) Intervention BOSU step ups - x10 fwd, lat Parameters stool scoots - 15' x1 lap (L LE only) Intervention excursions on airex x5 Parameters Heel taps - 2x5 6 step - held Additional Exercises Add more exercises? -- Modalities Modalities Vasopneumatic Treatment Parameters mod pressure 10 mins PT Treatment Times Therex Total Time 40 Modalities Total Time 10 Direct Treatment Time 50 Total Treatment Time 50 Goals: Physical Therapy Ortho Goals: MOBILITY: Patient will be able to ambulate for 1 hour in community and ambulate on uneven surfaces without difficulty in 4 weeks. MOBILITY: Patient will be able to ascend/descend stairs reciprocally without difficulty in 4 weeks. IMPAIRMENT: Improve pain to 1/10 or less during prolonged standing, walking and negotiating uneven surfaces in 4 weeks IMPAIRMENT: Improve AROM of the Knee to 0-120 degrees in 4 weeks. OTHER: Patient will increase FOTO score from 58 to at least 70 to show MDC/MCII and expected functional outcome in 4 weeks. OTHER: Patient will be able to properly demonstrate independence with HEP in 1 week. Patient Education: Quality of movement and HEP Adherence with patient verbalized understanding. Post-Treatment Pain Scale: 2 Assessment: Patient had an expected response to treatment. Skilled Intervention demonstrated by modifications of treatment per exercise log including assessment of patient's response and modalities as indicated and safety interventions per exercise log. Progress towards goals as expected. Plan for Next Visit: Treatment Visit with focus on dynamic mobility Herman Fragoso PT State License, [id number] documented in this encounter [facility] 11-07-2022 History of Present illness Narrative [facility] OUT[facility] REH[facility] DAILY TREATMENT NOTE Today's Date 11/07/2022 Patient Name: Junie Barros Date of : 1950 Current Visit #: 7 Authorized Visits: 199 Case Name: S/P Left TKR History: Pre-Treatment Pain Scale: 0 Symptoms: gradually improved Functional Diagnosis: 1. Status post total left knee replacement Clinical Information: Subjective: Pt reports no pain in knee and getting good ROM. Objective Treatments: Physical Therapy Exercise Log - 11/07/22 1304 OTHER Precautions/Contraindications Supervising PT: Tone Notes Visit 7 1:01-1:55 Therapeutic Exercise (56355) Intervention scifit L4 x 5 min Parameters Standing calf wedge, Hamstring stretches 3x20'' Intervention stairs reciprocal x 3 Step over x 10 Parameters Lateral (RTB), retro, ambulation x 30 x 2 laps Intervention Steamboats - L5 x10 Parameters BOSU Lunges - x15 alt Intervention shuttle squat 62# x20 SL 31# x2 x10 Parameters Heel slides 3''x20 (117 degrees) Intervention BOSU step ups - x10 fwd, lat Parameters stool scoots - 15' x1 lap (L LE only) Intervention Heel taps - 2x5 6 step Additional Exercises Add more exercises? Yes Modalities Modalities Vasopneumatic Treatment Parameters low pressure 10 mins PT Treatment Times Therex Total Time 45 Modalities Total Time 10 Direct Treatment Time 55 Total Treatment Time 55 Goals: Physical Therapy Ortho Goals: MOBILITY: Patient will be able to ambulate for 1 hour in community and ambulate on uneven surfaces without difficulty in 4 weeks. MOBILITY: Patient will be able to ascend/descend stairs reciprocally without difficulty in 4 weeks. IMPAIRMENT: Improve pain to 1/10 or less during prolonged standing, walking and negotiating uneven surfaces in 4 weeks IMPAIRMENT: Improve AROM of the Knee to 0-120 degrees in 4 weeks. OTHER: Patient will increase FOTO score from 58 to at least 70 to show MDC/MCII and expected functional outcome in 4 weeks. OTHER: Patient will be able to properly demonstrate independence with HEP in 1 week. Patient Education: Quality of movement with patient demonstrated understanding. Post-Treatment Pain Scale: 0 Assessment: Patient had an expected response to treatment. Skilled Intervention demonstrated by modifications of treatment per exercise log including increased load and safety interventions per exercise log. Progress towards goals as expected. Plan for Next Visit: Treatment Visit with focus on strengthening and ROM progression Blaise Lam PTA STATE LICENSE, [id number] documented in this encounter [facility] 11-04-2022 History of Present illness Narrative [facility] OUT[facility] REH[facility] DAILY TREATMENT NOTE Today's Date 11/04/2022 Patient Name: Junie Barros Date of : 1950 Current Visit #: 6 Authorized Visits: 199 Case Name: S/P Left TKR History: Pre-Treatment Pain Scale: 0 Symptoms: stabilized Functional Diagnosis: 1. Status post total left knee replacement Clinical Information: Subjective: patient reports she did very good after last session cold compression. She reports less swelling and able to bend knee more and no pain. Objective Continued with cold compression and exercises as per the log. Slight difficulty going down stairs as she feels tightness in the front of knee. Treatments: Physical Therapy Exercise Log - 11/04/22 1301 OTHER Precautions/Contraindications Supervising PT: Tone Notes Visit 6 [id number] Therapeutic Exercise (25818) Intervention scifit L4 x 5 min Parameters Standing calf wedge, Hamstring stretches 3x20'' Intervention stairs reciprocal x 3 Step over x 10 Parameters Lateral, retro, fwd march x 30 x 2 laps Intervention Steamboats - L5 x10 Parameters BOSU Lunges - x5 alt Intervention shuttle squat 62# x20 SL 25# x2 x10 Parameters Heel slides 3''x20 (120 degrees) Additional Exercises Add more exercises? Yes Modalities Modalities Vasopneumatic Treatment Parameters low pressure 10 mins PT Treatment Times Therex Total Time 32 Modalities Total Time 10 Direct Treatment Time 42 Total Treatment Time 44 Goals: Physical Therapy Ortho Goals: MOBILITY: Patient will be able to ambulate for 1 hour in community and ambulate on uneven surfaces without difficulty in 4 weeks. MOBILITY: Patient will be able to ascend/descend stairs reciprocally without difficulty in 4 weeks. IMPAIRMENT: Improve pain to 1/10 or less during prolonged standing, walking and negotiating uneven surfaces in 4 weeks IMPAIRMENT: Improve AROM of the Knee to 0-120 degrees in 4 weeks. OTHER: Patient will increase FOTO score from 58 to at least 70 to show MDC/MCII and expected functional outcome in 4 weeks. OTHER: Patient will be able to properly demonstrate independence with HEP in 1 week. Patient Education: Quality of movement, Verbal HEP, and Diagnosis and recovery specific education with patient verbalized understanding. Post-Treatment Pain Scale: 0 Assessment: Patient had an expected response to treatment. Skilled Intervention demonstrated by modifications of treatment per exercise log including increased load, increased mobility, assessment of patient's response, and modalities as indicated and safety interventions per exercise log. Progress towards goals as expected. Plan for Next Visit: Treatment Visit with focus on continue with strength and knee bending 120 degree Priyanka Hall PT STATE LICENSE, [id number] documented in this encounter [facility] 11-02-2022 History of Present illness Narrative [facility] RE[facility] DAILY TREATMENT NOTE Today's Date 11/02/2022 Patient Name: Junie Barros Date of : 1950 Current Visit #: 5 Authorized Visits: 199 Case Name: S/P Left TKR History: Pre-Treatment Pain Scale: 0 Symptoms: stabilized Functional Diagnosis: 1. Status post total left knee replacement Clinical Information: Subjective: Pt reports low pain today and some increased swelling after LV but low pain Objective Used vaso 34 degree on med with good relief of swelling Treatments: Physical Therapy Exercise Log - 11/02/22 1301 OTHER Precautions/Contraindications Supervising PT: Tone Notes Visit 5 [id number] Therapeutic Exercise (52048) Intervention scifit L4 x 5 min Parameters Standing calf wedge, Hamstring stretches 3x20'' Intervention stairs reciprocal x 2 Step ups x 10 Parameters Lateral, retro, fwd march x 30 x 2 laps Intervention Steamboats - L5 x10 *yellow miniband today Parameters BOSU Lunges - x16 alt Intervention shuttle squat 62# x20 SL 25# x20 Parameters Heel slides 3''x20 (120 degrees) Intervention -- Parameters -- Intervention -- Parameters -- PT Treatment Times Therex Total Time 30 Modalities Total Time 10 Direct Treatment Time 40 Total Treatment Time 45 Goals: Physical Therapy Ortho Goals: MOBILITY: Patient will be able to ambulate for 1 hour in community and ambulate on uneven surfaces without difficulty in 4 weeks. MOBILITY: Patient will be able to ascend/descend stairs reciprocally without difficulty in 4 weeks. IMPAIRMENT: Improve pain to 1/10 or less during prolonged standing, walking and negotiating uneven surfaces in 4 weeks IMPAIRMENT: Improve AROM of the Knee to 0-120 degrees in 4 weeks. OTHER: Patient will increase FOTO score from 58 to at least 70 to show MDC/MCII and expected functional outcome in 4 weeks. OTHER: Patient will be able to properly demonstrate independence with HEP in 1 week. Patient Education: Verbal HEP with patient verbalized understanding. Post-Treatment Pain Scale: 0 Assessment: Patient had an expected response to treatment. Skilled Intervention demonstrated by modifications of treatment per exercise log including assessment of patient's response and safety interventions per exercise log. Progress towards goals as expected. Plan for Next Visit: Treatment Visit with focus on progressing as tolerated Trang Hernández PTA STATE LICENSE, [id number] documented in this encounter [facility] 10-31-2022 History of Present illness Narrative [facility] OUT[facility] REH[facility] DAILY TREATMENT NOTE Today's Date 10/31/2022 Patient Name: Junie Barros Date of : 1950 Current Visit #: 4 Authorized Visits: 199 Case Name: S/P Left TKR History: Pre-Treatment Pain Scale: 0 Symptoms: gradually improved Functional Diagnosis: 1. Status post total left knee replacement Clinical Information: Subjective: Pt reports no pain in knee and stated she walked up steps to clinic today with a reciprocal pattern Objective Treatments: Physical Therapy Exercise Log - 10/31/22 1302 OTHER Precautions/Contraindications Supervising PT: Tone Notes Visit 4 1:00 - 1:40 Therapeutic Exercise (99056) Intervention scifit L4 x 5 min Parameters Standing calf wedge, Hamstring stretches 3x20'' Intervention TKE - 5 sec x10 mora band Parameters step up and lateral 6 10 L Intervention BOSU Lunges - x15 alt Parameters Steamboats - x10 L5 Intervention Lateral, retro, fwd june x 15 x 2laps Parameters shuttle squat 50# x20 SL 25# x20 Intervention Steps reciprocal - x2 laps Parameters Heel slides 3''x20 (116 degrees) Intervention quads set 5 x10 Parameters -- PT Treatment Times Therex Total Time 40 Direct Treatment Time 40 Total Treatment Time 40 Goals: Physical Therapy Ortho Goals: MOBILITY: Patient will be able to ambulate for 1 hour in community and ambulate on uneven surfaces without difficulty in 4 weeks. MOBILITY: Patient will be able to ascend/descend stairs reciprocally without difficulty in 4 weeks. IMPAIRMENT: Improve pain to 1/10 or less during prolonged standing, walking and negotiating uneven surfaces in 4 weeks IMPAIRMENT: Improve AROM of the Knee to 0-120 degrees in 4 weeks. OTHER: Patient will increase FOTO score from 58 to at least 70 to show MDC/MCII and expected functional outcome in 4 weeks. OTHER: Patient will be able to properly demonstrate independence with HEP in 1 week. Patient Education: Quality of movement with patient demonstrated understanding. Post-Treatment Pain Scale: 0 Assessment: Patient had an expected response to treatment. Skilled Intervention demonstrated by modifications of treatment per exercise log including increased load and safety interventions per exercise log. Progress towards goals as expected. Plan for Next Visit: Treatment Visit with focus on strengthening and ROM Blaise Lam PTA STATE LICENSE, [id number] documented in this encounter [facility] 10-28-2022 History of Present illness Narrative [facility] OUT[facility] REH[facility] DAILY TREATMENT NOTE Today's Date 10/28/2022 Patient Name: Junie Barros Date of : 1950 Current Visit #: 3 Authorized Visits: 199 Case Name: S/P Left TKR History: Pre-Treatment Pain Scale: 0 Symptoms: stabilized Functional Diagnosis: 1. Status post total left knee replacement Clinical Information: Subjective: Patient reports knee itself is not bothering her but she has muscles cramping on medial side and under knee cap . Quads are getting little better with less frequent cramps. Objective Treatments: Physical Therapy Exercise Log - 10/28/22 1429 OTHER Precautions/Contraindications Supervising PT: Tone Notes Visit 3 2:30 pm 3:14 pm Therapeutic Exercise (17443) Intervention scifit L3 x 5 min Parameters Standing calf wedge, Hamstring stretches 3x20'' Intervention shuttle squat 37# 2x10 Parameters sink ex (abd, ext, HS curl,HR, squat) x10 bilat Intervention Lateral, retro, fwd march x 15 x 2laps Parameters SLS EO 20 x3 Intervention Heel slides 3''x20 (113) Parameters quads set 5 x20 Intervention SLR 10 X2 Parameters step up and lateral 6 10 L PT Treatment Times Therex Total Time 44 Direct Treatment Time 44 Total Treatment Time 46 Goals: Physical Therapy Ortho Goals: MOBILITY: Patient will be able to ambulate for 1 hour in community and ambulate on uneven surfaces without difficulty in 4 weeks. MOBILITY: Patient will be able to ascend/descend stairs reciprocally without difficulty in 4 weeks. IMPAIRMENT: Improve pain to 1/10 or less during prolonged standing, walking and negotiating uneven surfaces in 4 weeks IMPAIRMENT: Improve AROM of the Knee to 0-120 degrees in 4 weeks. OTHER: Patient will increase FOTO score from 58 to at least 70 to show MDC/MCII and expected functional outcome in 4 weeks. OTHER: Patient will be able to properly demonstrate independence with HEP in 1 week. Patient Education: Quality of movement, Verbal HEP, and Diagnosis and recovery specific education with patient verbalized understanding. Post-Treatment Pain Scale: 0 Assessment: Patient had an expected response to treatment. Knee AAROM 0-113 Skilled Intervention demonstrated by modifications of treatment per exercise log including increased load, increased rate, increased mobility, and assessment of patient's response and safety interventions per exercise log. Progress towards goals as expected. Plan for Next Visit: Treatment Visit with focus on continue to progress and might add step over Priyanka Hall PT STATE LICENSE, [id number] documented in this encounter [facility] 10-26-2022 History of Present illness Narrative [facility] OUTPATIENT REHABILITATION DAILY TREATMENT NOTE Today's Date 10/26/2022 Patient Name: Junie Barros Date of : 1950 Current Visit #: 2 Authorized Visits: 199 Case Name: S/P Left TKR History: Pre-Treatment Pain Scale: 1 Symptoms: stabilized Functional Diagnosis: 1. Status post total left knee replacement Clinical Information: Subjective: Pt reports low pain coming in today and min soreness after IE Objective Pt had very little difficulty today, we held progressing further to reduce DOMS Treatments: Physical Therapy Exercise Log - 10/26/22 1348 OTHER Precautions/Contraindications Supervising PT: Tone Notes Visit 1 [id number] Therapeutic Exercise (75888) Intervention reviewed current HEP and instructed pt to continue calf and HS stretches, quad sets w/ heel prop, SLR and assisted heel slides Parameters scifit L3 x 5 min Intervention Standing calf wedge, Hamstring stretches 3x20'' Parameters sink ex (abd, ext, HS curl,HR, squat) x10 bilat Intervention Lateral, retro, fwd june x 1min Parameters SLS EO, EC x 1min each Goals: Physical Therapy Ortho Goals: MOBILITY: Patient will be able to ambulate for 1 hour in community and ambulate on uneven surfaces without difficulty in 4 weeks. MOBILITY: Patient will be able to ascend/descend stairs reciprocally without difficulty in 4 weeks. IMPAIRMENT: Improve pain to 1/10 or less during prolonged standing, walking and negotiating uneven surfaces in 4 weeks IMPAIRMENT: Improve AROM of the Knee to 0-120 degrees in 4 weeks. OTHER: Patient will increase FOTO score from 58 to at least 70 to show MDC/MCII and expected functional outcome in 4 weeks. OTHER: Patient will be able to properly demonstrate independence with HEP in 1 week. Patient Education: Verbal HEP with patient verbalized understanding. Post-Treatment Pain Scale: 1 Assessment: Patient had an expected response to treatment. Skilled Intervention demonstrated by modifications of treatment per exercise log including assessment of patient's response and safety interventions per exercise log. Progress towards goals as expected. Plan for Next Visit: Treatment Visit with focus on progressing as tolerated Trang Hernández PTA STATE LICENSE, [id number] documented in this encounter [facility] 10-10-2022 History of Present illness Narrative I spoke w Katey today and she says the knee is doing really well, therapy is coming along. She has been showering. Her swelling has improved w elevation and ice. Her dressing has no drainage, the top is a little loose and was reinforce by the home care nurse. She did have constipation and used the Miralax w good results. She denies any nausea, appetite is good and she is drinking plenty of fluids. She is taking 325mg ASA bid, 500mg Keflex tid, 10mg Flexeril at HS and 20mg Protonix every day. She has decreased her narcotic to about one tid. documented in this encounter [facility] 09-24-2022 History of Present illness Narrative She comes today for presurgical consultation regarding her left knee degenerative arthrosis. At this point in time, Junie is a patient who has had pain and discomfort on the inside of the left knee. She points to the medial joint line. It is affecting her ability to walk and function. 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 She tried pills. She has tried shots. She tried physical therapy. We then talked about all options. Talked about knee arthroscopy at age 72, versus knee replacement, and at this time, the patient has elected for knee replacement based on the medial compartment degenerative changes greater than 50% joint narrowing, as well as the changes on the MRI scan and CAT scan. She is presenting for her left total knee replacement. She says the knee pops, it cracks, it swells, it hurts on her. PAST MEDICAL HISTORY ALLERGIES Amlodipine, lisinopril, Sultrin. MEDICATIONS Include vitamin D, Lexapro, Synthroid, losartan, Hyzaar, Valium. ILLNESSES Include hypothyroidism, depression, high blood pressure. REVIEW OF SYSTEMS Left knee pain, joint pain, arthralgias, ringing in the ears. SURGERIES Had bladder repair, carpal tunnel, right rotator cuff, left hand trigger finger. SOCIAL HISTORY She is . Does not smoke. Drinks on a rare occasion. FAMILY HISTORY Noncontributory. X-RAY MRI and CT scan are above. PHYSICAL EXAMINATION General: The patient is awake, alert, oriented x3. She ambulates without assistive device. She has come in with her . Chest: Clear. Heart: Regular rate and rhythm. Abdomen: Benign. Neck: No carotid bruits are noted. Extremities: Left lower extremity neurologically intact, 2+ pulses. Full range of motion of the ankle and hip. Left knee has full extension, 120 degrees of flexion. No ligamentous instability. No erythema. No lymphangitis. No cellulitis. Severe patellofemoral crepitus. Mild knee effusion. IMPRESSION Left knee degenerative arthrosis. PLAN We will proceed with left total knee replacement. All risks and complications were discussed. I have discussed all treatment options with the patient, the patient took part in the entire decision-making process. Mental status was assessed. Narcotic review was performed. Last medication was diazepam on 07/15/2022. I informed the patient we will use Ami total knee replacement system with Xander robotic assistance. We did encounter a hypokalemia on her preop. We have added potassium 10 mEq daily. I will see her for left knee replacement. documented in this encounter [facility] 09-21-2022 History of Present illness Narrative OFFICE CONSULTATION NOTE [facility] [address] ([address]) [facility] [address] [facility] [id number] Physicians: Prakash Weller MD (Family); José Miguel Petit,* (Referring) Subjective: Junie Barros is a 72 y.o. female seen in the office today for Initial Visit (Intake) (Pt states no cardiac concerns today.) She is here for preoperative valuation from a cardiac standpoint for upcoming orthopedic surgery she requires left knee replacement. She began having significant problems with the knee in late winter. She is able to do housework, yard work and walk. She has no chest discomfort or shortness of breath. She has no prior cardiovascular history. She denies lower extremity edema, shortness of breath, syncope, palpitations, PND and orthopnea. She sleeps fine. Cardiac risk factors are that she is overweight, hyperlipidemia, hypertension and postmenopausal female. Assessment/Plan Preoperative cardiovascular evaluation I reviewed ECG from 09/09 which is normal. I reviewed recent laboratory data Recommend potassium replacement in light of potassium of 3.3. She is able to perform greater than 4 metabolic equivalents of activity with no cardiac symptoms. She has no prior cardiovascular history and no congestive heart failure by symptoms or examination. The proposed orthopedic procedure would be done at a moderate cardiovascular risk as she does have risk factors. No further noninvasive testing for risk stratification is needed. Hypertension She is on Hyzaar She states home blood pressures are fine Hyperlipidemia Lipid profile done in April did show elevated LDL cholesterol. At 162. HDL 50. Triglyceride 252. The 10-year ASCVD risk score (Kassi DK, et al., 2019) is: 19.5% Values used to calculate the score: Age: 72 years Sex: Female Is Non- : No Diabetic: No Tobacco smoker: No Systolic Blood Pressure: 147 mmHg Is BP treated: Yes HDL Cholesterol: 50 mg/dL Total Cholesterol: 262 mg/dL Given elevated risk score she should have a discussion with Dr. Vela regarding statins for primary prevention. Orders placed this encounter: No orders of the defined types were placed in this encounter. Follow Up Ordered: Return if symptoms worsen or fail to improve. Patient's Medications New Prescriptions No medications on file Previous Medications ASCORBIC ACID, VITAMIN C, (ASCORBIC ACID WITH JULIÁN HIPS) 500 MG TABLET Take 1 (one) tablet (500 mg total) by mouth daily . CALCIUM CARBONATE-VITAMIN D2 500 MG(1,250MG) -200 UNIT TABLET Take 1 (one) tablet (500 mg total) by mouth 2 (two) times a day . CHOLECALCIFEROL, VITAMIN D3, (VITAMIN D3 ORAL) Take by mouth . CYANOCOBALAMIN (VITAMIN B-12) 1000 MCG TABLET Take 1 (one) tablet (1,000 mcg total) by mouth daily . ESCITALOPRAM OXALATE (LEXAPRO) 10 MG TABLET Take 1 (one) tablet (10 mg total) by mouth daily . LEVOTHYROXINE (SYNTHROID, LEVOTHROID) 100 MCG TABLET Take 1 (one) tablet (100 mcg total) by mouth once daily . LOSARTAN-HYDROCHLOROTHIAZIDE (HYZAAR) 100-25 MG PER TABLET Take 1 (one) tablet by mouth daily . OMEPRAZOLE (PRILOSEC) 20 MG CAPSULE Take 1 (one) capsule (20 mg total) by mouth Monday, Monday, Monday . THERAPEUTIC MULTIVITAMIN (THERAGRAN) TABLET Take 1 (one) tablet by mouth daily . Modified Medications No medications on file Discontinued Medications DIAZEPAM (VALIUM) 5 MG TABLET Take 1 (one) tablet (5 mg total) by mouth daily as needed for anxiety . Histories: Past Medical History: Diagnosis Date Arthritis Complication of anesthesia nausea and hard time waking up Depression Fractures GERD (gastroesophageal reflux disease) Hypertension Hypothyroidism PONV (postoperative nausea and vomiting) Ringing in ears Past Surgical History: Procedure Laterality Date BLADDER REPAIR CARPAL TUNNEL RELEASE ROTATOR CUFF REPAIR Right TRIGGER FINGER RELEASE left middle and index finger WRIST FRACTURE SURGERY History reviewed. No pertinent family history. Social History Tobacco Use Smoking status: Never Smokeless tobacco: Never Substance Use Topics Alcohol use: Yes Comment: occasionally Drug use: Not Currently Allergies Allergen Reactions Amlodipine Swelling Lisinopril Other (See Comments) and Cough Sultrin Other Rash Sultran cream Objective: Vitals: BP (!) 147/80 (BP Location: Left arm, Patient Position: Sitting) Pulse 80 Ht 5' 6 Wt 81.3 kg (179 lb 4.8 oz) SpO2 95% BMI 28.94 kg/m BP Readings from Last 3 Encounters: 09/21/22 (!) 147/80 09/15/22 (!) 165/88 09/11/17 143/66 Alert and oriented x3. Sclera nonicteric. Neck supple. Chest clear to auscultation bilaterally. Cardiovascular regular rate and rhythm , no carotid bruits, brisk carotid upstrokes, S1-S2 normal no murmurs, gallops, rubs. Abdomen is soft and nontender. No lower extremity edema. Overview of Problems Addressed: Problem Preoperative Cardiovascular Examination 1. Benign hypertension 2. Hyperlipidemia, unspecified hyperlipidemia type 3. Osteoarthritis of left knee, unspecified osteoarthritis type 4. Preoperative cardiovascular examination Results from last 7 days Lab Units 09/15/22 0802 SODIUM mmol/L 140 POTASSIUM mmol/L 3.3* CHLORIDE mmol/L 106 BUN mg/dL 15 CREATININE mg/dL 0.99 GLUCOSE mg/dL 121* CALCIUM mg/dL 9.6 Results from last 7 days Lab Units 09/15/22 0802 WBC K/mcL 9.33 HGB g/dL 13.0 HCT % 39.7 PLT K/mcL 299 Carlos Reyes MD 09/21/2022 documented in this encounter [facility] 09-21-2022 Instructions Alberto Montes RN - 09/21/2022 9:57 AM EDT Junie, it was a pleasure seeing you in clinic today! Here are some instructions from the cardiology team: Please check blood pressure at home everyday at the same time of day for two weeks, preferably 1-2 hours after morning blood pressure medications. We will call you in two weeks to obtain blood pressure readings. Please call our team if you are experiencing any increased cardiac awareness including shortness of breath, swelling, heart palpitations, feeling faint, dizziness, lightheadedness, fatigue or chest discomfort. Thank you! How to contact your Care Team: Provider: Carlos Reyes MD Nurse: Alberto Montes RN In case of an emergency please call 911. REFILLS: When in need for refills please call your care team or the office at [phone]. Please include your name, date of , call-back number, medication name and dose, pharmacy name, and specify 30-day or 90-day supply. Please check with your pharmacy within 24 hours of request for your refill. You must follow up as directed to continue current refills. Thank you documented in this encounter [facility] 09-05-2022 History of Present illness Narrative [facility] OUTPATIENT REHABILITATION DAILY TREATMENT NOTE Today's Date 09/05/2022 Patient Name: Junie Barros Date of : 1950 Current Visit #: 6 Authorized Visits: 199 Case Name: L Knee OA/prehab History: Pre-Treatment Pain Scale: 7 Symptoms: stabilized Functional Diagnosis: 1. Osteoarthritis of left knee, unspecified osteoarthritis type Clinical Information: Subjective: Pt reports increased pain coming in today, she was walking more over the weekend and has been sore since Objective Treatments: Physical Therapy Exercise Log - 09/05/22 1135 OTHER Precautions/Contraindications IE eval by Debby transferred to [facility] as supervising PT- 12 visits Notes L knee OA/prehab Vitals Visit 5 [id number] Therapeutic Exercise (36173) Intervention Scifit L5 x 6 min Parameters Standing HS, lunge, calf stretches 3x20'' Intervention Supine HS curl redball 3''x20 - Parameters Seated HS curl GTB 3''x20 Intervention Shuttle Squats - x20 50# Parameters -- Intervention -- Parameters -- Intervention -- Parameters SLS 3x20'' - NT Intervention Steamboats - x10 L3 B Parameters Heel Taps 4'' 3''x 20 with B UE support Intervention Step Up and over 6'' x 10, Step Ups Lat 6 Parameters BOSU Lunges - x15 alt Intervention HEP ISSUED ON 08/24/22: Access Code: [email or web address] URL: [email or web address] Date: 08/24/2022 Prepared by: Debby Valverde Exercises - Standing Hip Abduction - 1 x daily - 3-5 x weekly - 1-2 sets - 10 reps - Standing Hip Extension - 1 x daily - 3-5 x weekly - 1-2 sets - 10 reps - Standing Heel Raise with Chair Support - 1 x daily - 3-5 x weekly - 1-2 sets - 10 reps - Squat with Chair and Counter Support - 1 x daily - 3-5 x weekly - 1-2 sets - 10 reps - Hooklying Clamshell with Resistance - 1 x daily - 3-5 x weekly - 1-2 sets - 10 reps - Supine Bridge with Resistance Band - 1 x daily - 3-5 x weekly - 1-2 sets - 10 reps PT Treatment Times Therex Total Time 38 Direct Treatment Time 38 Total Treatment Time 40 Goals: Physical Therapy Ortho Goals: 1. Patient will demonstrate increased L knee AROM flexion to 130 degrees or greater within 3 weeks. 2. Patient will demonstrate increased L knee PROM Extension to 0 degrees within 3 weeks to increase knee kinematics with gait. 2. Patient will demonstrate increased L LE strength grossly to 4+/5 or greater to decrease episodes of knee buckling within 6 weeks. 3. Patient will demonstrate and report increased ease and comfort with ADL's as evidenced by improved FOTO score from 63 to 71 or greater within 6 weeks. 4. Patient will demonstrate and report consistent compliance of gradual HEP within 6 weeks to prepare for upcoming TKA. Patient Education: Verbal HEP with patient verbalized understanding. Post-Treatment Pain Scale: 7 Assessment: Patient had an expected response to treatment. Skilled Intervention demonstrated by modifications of treatment per exercise log including assessment of patient's response and safety interventions per exercise log. Progress towards goals as expected. Plan for Next Visit: Treatment Visit with focus on progressing as tolerated Trang Hernández PTA STATE LICENSE, [id number] documented in this encounter [facility] 08-31-2022 History of Present illness Narrative [facility] OUTPATIENT REHABILITATION DAILY TREATMENT NOTE Today's Date 08/31/2022 Patient Name: Junie Barros Date of : 1950 Current Visit #: 5 Authorized Visits: 199 Case Name: L Knee OA/prehab History: Pre-Treatment Pain Scale: 2 Symptoms: stabilized Functional Diagnosis: 1. Primary osteoarthritis of left knee Clinical Information: Subjective: Pt reports minimal pain coming but gets worse when standing weight bearing through L LE. Objective Treatments: Physical Therapy Exercise Log - 08/31/22 1048 OTHER Precautions/Contraindications IE eval by Debby transferred to [facility] as supervising PT- 12 visits Notes L knee OA/prehab Vitals Visit 4: 10:48 - 11:20 Therapeutic Exercise (23308) Intervention Scifit L5 x 6 min Parameters Standing HS, lunge, calf stretches 3x20'' Intervention BOSU Lunges - x15 alt Parameters Step Up and over 6'' x 10, Step Ups Lat 6 Intervention Heel Taps 4'' 3''x 20 with B UE support Parameters Steamboats - x10 L3 B Intervention SLS 3x20'' - NT Parameters Shuttle Squats - x20 50# Intervention Seated HS curl GTB 3''x20 Parameters Bridge GTB above knees 2x10, Hooklying clamshells GTB 2x10 - NT Intervention Supine HS curl redball 3''x20 - NT Parameters -- Intervention HEP ISSUED ON 08/24/22: Access Code: [email or web address] URL: [email or web address] Date: 08/24/2022 Prepared by: Debby Valverde Exercises - Standing Hip Abduction - 1 x daily - 3-5 x weekly - 1-2 sets - 10 reps - Standing Hip Extension - 1 x daily - 3-5 x weekly - 1-2 sets - 10 reps - Standing Heel Raise with Chair Support - 1 x daily - 3-5 x weekly - 1-2 sets - 10 reps - Squat with Chair and Counter Support - 1 x daily - 3-5 x weekly - 1-2 sets - 10 reps - Hooklying Clamshell with Resistance - 1 x daily - 3-5 x weekly - 1-2 sets - 10 reps - Supine Bridge with Resistance Band - 1 x daily - 3-5 x weekly - 1-2 sets - 10 reps PT Treatment Times Therex Total Time 32 Direct Treatment Time 32 Total Treatment Time 32 Goals: Physical Therapy Ortho Goals: 1. Patient will demonstrate increased L knee AROM flexion to 130 degrees or greater within 3 weeks. 2. Patient will demonstrate increased L knee PROM Extension to 0 degrees within 3 weeks to increase knee kinematics with gait. 2. Patient will demonstrate increased L LE strength grossly to 4+/5 or greater to decrease episodes of knee buckling within 6 weeks. 3. Patient will demonstrate and report increased ease and comfort with ADL's as evidenced by improved FOTO score from 63 to 71 or greater within 6 weeks. 4. Patient will demonstrate and report consistent compliance of gradual HEP within 6 weeks to prepare for upcoming TKA. Patient Education: Quality of movement with patient demonstrated understanding. Post-Treatment Pain Scale: 0 Assessment: Patient had an expected response to treatment. Skilled Intervention demonstrated by modifications of treatment per exercise log including increased load and safety interventions per exercise log. Progress towards goals as expected. Plan for Next Visit: Treatment Visit with focus on strengthening and stability Blaise Lam PTA STATE LICENSE, [id number] documented in this encounter [facility] 08-29-2022 History of Present illness Narrative [facility] OUTPATIENT REHABILITATION DAILY TREATMENT NOTE Today's Date 08/29/2022 Patient Name: Junie Barros Date of : 1950 Current Visit #: 4 Authorized Visits: 199 Case Name: Vivek Knee OA/prehab History: Pre-Treatment Pain Scale: 4 Symptoms: stabilized Functional Diagnosis: 1. Osteoarthritis of left knee, unspecified osteoarthritis type Clinical Information: Subjective: Pt reports low pain coming in today and min soreness after LV Objective Treatments: Physical Therapy Exercise Log - 08/29/22 1430 OTHER Precautions/Contraindications IE eval by Debby transferred to [facility] as supervising PT- 12 visits Notes L knee OA/prehab Vitals [id number] Therapeutic Exercise (39578) Intervention Emphasis on knee ROM and LE strengthening to prepare for upcoming TKA Parameters Patient is very active- emphasis on CKC exercises and stability exercises Intervention -- Parameters Scifit L3 x 6 min Intervention Standing HS, lunge, calf stretches 3x20'' Parameters Step Up and over 4'' x 20, Step Ups Ant 6 Intervention Heel Taps 4'' 3''x 20 with B UE support Parameters SLS 3x20'' Intervention Standing: Hip Abd, Hip Ext, Heel Raises, Chair Squats 2x10 each B with UE support x2 for posture Parameters Bridge GTB above knees 2x10, Hooklying clamshells GTB 2x10 Intervention Seated HS curl GTB 3''x20 Parameters Supine HS curl redball 3''x20 Intervention HEP ISSUED ON 08/24/22: Access Code: [email or web address] URL: [email or web address] Date: 08/24/2022 Prepared by: Debby Valverde Exercises - Standing Hip Abduction - 1 x daily - 3-5 x weekly - 1-2 sets - 10 reps - Standing Hip Extension - 1 x daily - 3-5 x weekly - 1-2 sets - 10 reps - Standing Heel Raise with Chair Support - 1 x daily - 3-5 x weekly - 1-2 sets - 10 reps - Squat with Chair and Counter Support - 1 x daily - 3-5 x weekly - 1-2 sets - 10 reps - Hooklying Clamshell with Resistance - 1 x daily - 3-5 x weekly - 1-2 sets - 10 reps - Supine Bridge with Resistance Band - 1 x daily - 3-5 x weekly - 1-2 sets - 10 reps Parameters -- PT Treatment Times Therex Total Time 40 Direct Treatment Time 40 Total Treatment Time 45 Goals: Physical Therapy Ortho Goals: 1. Patient will demonstrate increased L knee AROM flexion to 130 degrees or greater within 3 weeks. 2. Patient will demonstrate increased L knee PROM Extension to 0 degrees within 3 weeks to increase knee kinematics with gait. 2. Patient will demonstrate increased L LE strength grossly to 4+/5 or greater to decrease episodes of knee buckling within 6 weeks. 3. Patient will demonstrate and report increased ease and comfort with ADL's as evidenced by improved FOTO score from 63 to 71 or greater within 6 weeks. 4. Patient will demonstrate and report consistent compliance of gradual HEP within 6 weeks to prepare for upcoming TKA. Patient Education: Verbal HEP with patient verbalized understanding. Post-Treatment Pain Scale: 4 Assessment: Patient had an expected response to treatment. Skilled Intervention demonstrated by modifications of treatment per exercise log including assessment of patient's response and safety interventions per exercise log. Progress towards goals as expected. Plan for Next Visit: Treatment Visit with focus on progressing as tolerated Trang Hernández PTA STATE LICENSE, [id number] documented in this encounter [facility] 08-24-2022 History of Present illness Narrative [facility] OUTPATIENT REHABILITATION DAILY TREATMENT NOTE Today's Date 08/24/2022 Patient Name: Junie Barros Date of : 1950 Current Visit #: 3 Authorized Visits: [id number] Case Name: L Knee OA/prehab History: Pre-Treatment Pain Scale: 2 Symptoms: gradually improved Functional Diagnosis: 1. Osteoarthritis of left knee, unspecified osteoarthritis type Clinical Information: Subjective: Patient reports intermittent L knee discomfort superior to patella with quad tightness noted. Reports continued compliance of HEP daily with some LE soreness afterwards. Objective Treatments: Physical Therapy Exercise Log - 08/24/22 1055 OTHER Precautions/Contraindications IE eval by Debby transferred to [facility] as supervising PT- 12 visits Notes L knee OA/prehab Vitals 10:55-11:41am Therapeutic Exercise (11649) Intervention Emphasis on knee ROM and LE strengthening to prepare for upcoming TKA Parameters Patient is very active- emphasis on CKC exercises and stability exercises Parameters Scifit L3 x 6 min Intervention Standing HS, lunge, calf stretches 3x20'' Parameters Step Up and over 4'' x 20, Step Ups Ant and Lat 6 Step x20 10 each B Intervention Heel Taps 4'' 3''x 20 with B UE support Parameters SLS 3x20'' Intervention Sink Ex's Parameters Bridge 5'' 2x10, Hooklying clamshells RTB 2x10- add both of these to HEP next visit with HEP Intervention Seated HS curl GTB 3''x20 Parameters Supine HS curl redball 3''x20 Parameters HEP: Access Code: [email or web address] URL: [email or web address] Date: 08/19/2022 Prepared by: Debby Valverde Exercises - Seated Calf Stretch with Strap - 1 x daily - 3-5 x weekly - 1-2 sets - 10 reps - Seated Knee Flexion - 1 x daily - 3-5 x weekly - 1-2 sets - 10 reps - Seated Long Arc Quad - 1 x daily - 3-5 x weekly - 1-2 sets - 10 reps - Supine Heel Slide with Strap - 1 x daily - 7 x weekly - 3 sets - 10 reps - Supine Heel Slide - 1 x daily - 7 x weekly - 3 sets - 10 reps - Supine Quad Set - 1 x daily - 7 x weekly - 3 sets - 10 reps - Small Range Straight Leg Raise - 1 x daily - 3-5 x weekly - 1-2 sets - 10 reps Goals: Physical Therapy Ortho Goals: 1. Patient will demonstrate increased L knee AROM flexion to 130 degrees or greater within 3 weeks. 2. Patient will demonstrate increased L knee PROM Extension to 0 degrees within 3 weeks to increase knee kinematics with gait. 2. Patient will demonstrate increased L LE strength grossly to 4+/5 or greater to decrease episodes of knee buckling within 6 weeks. 3. Patient will demonstrate and report increased ease and comfort with ADL's as evidenced by improved FOTO score from 63 to 71 or greater within 6 weeks. 4. Patient will demonstrate and report consistent compliance of gradual HEP within 6 weeks to prepare for upcoming TKA. Patient Education: Quality of movement and HEP Adherence with patient demonstrated understanding and verbalized understanding.Written handout provided and reviewed- see treatment log for details. Patient demonstrated and verbalized good understanding upon review. Post-Treatment Pain Scale: 2 Assessment: Patient had an expected response to treatment. Introduced chair squats, hooklying bridges and clamshells with theraband resistance with no c/o increased pain throughout. Intermittent L knee popping reported with flexion to extension transition on leg press today with decreased symptoms noted in modified extension range. Skilled Intervention demonstrated by modifications of treatment per exercise log including increased mobility and assessment of patient's response and safety interventions per exercise log. Progress towards goals as expected. Plan for Next Visit: Treatment Visit with focus on continued knee ROM and strengthening to prepare for upcoming knee surgery. Debby Price, PT State License, [id number] documented in this encounter [facility] 08-19-2022 History of Present illness Narrative [facility] OUTPATIENT REH[facility]IL[facility]ATION Evaluation Today's Date 08/19/2022 Patient Name: Junie Barros Date of : 1950 Case Name: L Knee OA/prehab Functional Diagnosis: 1. Primary osteoarthritis of left knee 2. Osteoarthritis of left knee, unspecified osteoarthritis type Clinical Information: Subjective Referring Diagnosis: L Knee OA/Prehab History of Present Illness Contemporary Medical History: HTN HLD Prior Surgeries: B Trigger finger surgeries Prior L wrist fracture (Dr. Petit) 10+ years ago R RTC Repair (Dr. Petit) 5+ years ago Subjective History: Patient reports 1 year or more of L knee pain with episodes of knee buckling with eventual MRI confirmation of medial meniscus tear. Current level of function: Ambulating without AD, negotiating stairs non reciprocally, only able to ambulate 30 minutes or less due to knee pain and fatigue. Retired, lives with . Likes to camp and ride the motorcycle with her . Previous Treatment for this condition: No Previous Imaging: MRI and X-ray Overall rating of health: Good Pain Scale Pain location: knee Aggravating factors: Walking or standing for longer durations, stairs Easing factors: rest with leg elevated Personal Goals: To decrease pain, improve ROM and strength to prepare for knee surgery. Home Environment Current Home Environment: Additional comments: 2 SINAN Do you feel safe at home? Yes Red Flags: None Comments: Barriers to Care: Chronicity or severity of impairments Fall risk screening Fallen 2 or more times in the last 12 months: No Injured as a result of a fall in the last 12 months: No Knee Right Knee Right Knee WFL Range of Motion: Flexion Active: 130 Extension Active: -2 (hyperextension of 2) Muscle Strength: WFL Flexion: 4+ Extension: 4+ Quad Set: good Left Knee Range of Motion: Flexion Active: 118 Extension Active: 4 (lacking 4 degrees of extension) Muscle Strength Flexion: 4- Extension: 4 Quad set: fair Treatments: Physical Therapy Exercise Log - 08/19/22 0956 OTHER Precautions/Contraindications IE eval by Debby transferred to [facility] as supervising PT- 12 visits Notes L knee OA/prehab Therapeutic Exercise (35797) Intervention Emphasis on knee ROM and LE strengthening to prepare for upcoming TKA Parameters Patient is very active- emphasis on CKC exercises and stability exercises Intervention Next visit- add SINK exercises to HEP Treatment Plan: Frequency of Visits: twice per week Duration: 6 weeks Interventions: Therapeutic Exercise (70459), Neuromuscular Re-Education (68253), Manual Therapy (98505), Therapeutic/ Functional Activities (54902), Gait Training (22100), Hot/Cold Pack (17653), and Vasopneumatic (47914) Rehab Potential: good Goals: Physical Therapy Ortho Goals: 1. Patient will demonstrate increased L knee AROM flexion to 130 degrees or greater within 3 weeks. 2. Patient will demonstrate increased L LE strength grossly to 4+/5 or greater to decrease episodes of knee buckling within 6 weeks. 3. Patient will demonstrate and report increased ease and comfort with ADL's as evidenced by improved FOTO score from 63 to 71 or greater within 6 weeks. 4. Patient will demonstrate and report consistent compliance of gradual HEP within 6 weeks to prepare for upcoming TKA. Patient Education provided: Written handout provided and reviewed- see treatment log for details. Patient demonstrated and verbalized good understanding upon review. Clinical Impression: CPT Code 49189 Low 69056 Moderate 24949 High History 0 1-2 3+ Comorbidities: chronic pain and OA, HTN HLD Prior Surgeries: B Trigger finger surgeries Prior L wrist fracture (Dr. Petit) 10+ years ago R RTC Repair (Dr. Petit) 5+ years ago Personal factors: age and chronicity or severity of the current condition X Examination of body systems (elements of body structures & functions, activity limitations, and/or participation restrictions) 1-2 elements 3+ elements 4+ elements See below clinical impression X Clinical Presentation Stable Evolving Unstable As evidenced by pt report of overall worsening of symtpoms over time X Decision Making Low (FOTO >/= 69) Moderate (FOTO 34 - 68) High (FOTO </= 33) FOTO score= 63, predicted 71 X Pt is a 72 y.o. female who presents to PT services with c/o Left knee pain/OA and meniscus tear. Upon assessment, pt has been found with the following impairments: decreased ROM, decreased strength, impaired dynamic balance, decreased stability, and pain. The documented impairments result in the following functional limitations: ADLs/IADLs, functional mobility, walking, stairs, recreational activities, quality of life, sleep, and carrying. The pt would benefit from skilled PT services focused on the above listed impairments and limitations in order to safely progress pt to their desired level of function. Pt to be discharged from OP PT services if/when goals are met, if they fail to make progress with conservative management in PT, if their level of progress plateaus, or if they do not maintain compliance with attendance or HEP. At this time, it is my clinical judgment that services are medically necessary. Initial evaluation completed by this PT with transfer of care to supervising PT Tone Fragoso. Debby Price PT State License, [id number] documented in this encounter [facility] 08-11-2022 History of Present illness Narrative [facility] [address] [facility] [address] [facility] [id number] Chief Complaint Patient presents with Results MRI review Junie Barros returns to the office today for follow up on her left knee and to review her MRI results. I originally saw the patient on 06/29 of this year for knee pain. We did try an injection but she only got a couple days of relief. We went on to order a MRI for further diagnostic evaluation and she is here today with her to review those results. She states that the knee is still painful especially if she is on her feet for any length of time. She is starting to have difficulty with her every day activities because of the knee. She continues to use otc pain medications but the just aren't providing her with any relief. The patient's past medical history, surgical history, social history, family history, medications and allergies were reviewed with the patient today and are available in the chart for further review. Allergies Allergen Reactions Sultrin Other Rash Sultran cream Current Outpatient Medications: calcium carbonate-vitamin D2 500 mg(1,250mg) -200 unit tablet, Take 1 (one) tablet (500 mg total) by mouth 2 (two) times a day ., Disp: , Rfl: cholecalciferol, vitamin D3, (VITAMIN D3 ORAL), Take by mouth ., Disp: , Rfl: escitalopram oxalate (LEXAPRO) 10 MG tablet, Take 1 (one) tablet (10 mg total) by mouth daily ., Disp: , Rfl: levothyroxine (SYNTHROID, LEVOTHROID) 100 MCG tablet, Take 1 (one) tablet (100 mcg total) by mouth once daily ., Disp: , Rfl: LOSARTAN POTASSIUM, BULK, MISC, by Miscellaneous route ., Disp: , Rfl: losartan-hydrochlorothiazide (HYZAAR) 100-25 mg per tablet, , Disp: , Rfl: diazePAM (VALIUM) 5 MG tablet, Take 1 (one) tablet (5 mg total) by mouth daily as needed for anxiety ., Disp: 1 tablet, Rfl: 0 Past Medical History: Diagnosis Date Depression Fractures Hypertension Ringing in ears Past Surgical History: Procedure Laterality Date BLADDER REPAIR CARPAL TUNNEL RELEASE ROTATOR CUFF REPAIR Right TRIGGER FINGER RELEASE left middle and index finger Social History Socioeconomic History Marital status: Tobacco Use Smoking status: Never Smokeless tobacco: Never Substance and Sexual Activity Alcohol use: Yes Drug use: Not Currently Imaging: L Knee MRI: There is complex tearing of the body and posterior horn of the medial meniscus. There is horizontal undersurface oblique tear involving the body. Complex macerated tearing identified involving the root horn attachment. There is displaced meniscal fragment posteriorly within the intercondylar notch (series 9, image 10). Diffuse intermediate to high-grade chondrosis of the medial compartment with marginal osteophytes. The extensor mechanism is intact. Intermediate to high-grade chondrosis of the patellofemoral cartilage.The bone marrow signal is without fracture or osteonecrosis. Moderate sized joint effusion decompresses into a lobulated, septated and partially ruptured Belcher's cyst. Assessment/Plan: After reviewing of the MRI images, we discussed treatment options for the left knee. I did explain that given the damage to the medial meniscus as well as the areas of high grade chondral loss, she would most benefit from a total knee replacement. I will start her in a course of outpatient physical therapy for the left knee although I don't know if this will provide her with any relief. She has tried the conservative measures, oral medications as well as injections and unfortunately continues to have worsening pain of the left knee. Her everyday activities as starting to become affected by the knee. She does wish to move forward with a XANDER robotic assisted total knee replacement with Dr. Petit. The office will contact her in 10-14 days. documented in this encounter [facility] 07-16-2022 History of Present illness Narrative [facility] [address] [facility] [address] [facility] [id number] Chief Complaint Patient presents with Left Knee - Follow-up Junie Barros returns to the office today for follow up on her left knee. She was in the office about 2 weeks ago and received an injection to the left knee. Unfortunately, she didn't gain any relief of her symptoms. She has continued to have pain and swelling in the left knee with no new injury. The patient's past medical history, surgical history, social history, family history, medications and allergies were reviewed with the patient today and are available in the chart for further review. Allergies Allergen Reactions Sultrin Other Rash Sultran cream Current Outpatient Medications: calcium carbonate-vitamin D2 500 mg(1,250mg) -200 unit tablet, Take 1 (one) tablet (500 mg total) by mouth 2 (two) times a day ., Disp: , Rfl: cholecalciferol, vitamin D3, (VITAMIN D3 ORAL), Take by mouth ., Disp: , Rfl: escitalopram oxalate (LEXAPRO) 10 MG tablet, Take 1 (one) tablet (10 mg total) by mouth daily ., Disp: , Rfl: levothyroxine (SYNTHROID, LEVOTHROID) 100 MCG tablet, Take 1 (one) tablet (100 mcg total) by mouth once daily ., Disp: , Rfl: LOSARTAN POTASSIUM, BULK, MISC, by Miscellaneous route ., Disp: , Rfl: diazePAM (VALIUM) 5 MG tablet, Take 1 (one) tablet (5 mg total) by mouth daily as needed for anxiety ., Disp: 1 tablet, Rfl: 0 Past Medical History: Diagnosis Date Depression Fractures Hypertension Ringing in ears Past Surgical History: Procedure Laterality Date BLADDER REPAIR CARPAL TUNNEL RELEASE ROTATOR CUFF REPAIR Right TRIGGER FINGER RELEASE left middle and index finger Social History Socioeconomic History Marital status: Single Tobacco Use Smoking status: Never Smokeless tobacco: Never Substance and Sexual Activity Alcohol use: Yes Drug use: Not Currently ROS: Review of Systems Musculoskeletal: Positive for arthralgias, joint swelling and myalgias. PE: Physical Exam Musculoskeletal: Left knee: Swelling, effusion and bony tenderness present. Decreased range of motion. Tenderness present. Imaging: No new imaging, reviewed from prior visit. Assessment/Plan: After discussion, I am ordering a MRI on the left knee for further diagnostic evaluation. She is to continue with otc pain medications as needed. I will see her back to review her results. documented in this encounter [facility] 06-30-2022 History of Present illness Narrative Associated Order(s): LG Jt Injection/Arthrocentesis: L knee Post-Procedure Diagnose(s): Primary osteoarthritis of left knee Junie Barros 1950 CC: 71 y.o. is a she with left knee pain Chief Complaint Patient presents with Left Knee - Pain . HPI: Knee Pain: Patient presents to the office today with complaints of left knee pain. She denies any specific injury to the knee. She reports increased pain as well as cracking behind the kneecap. She has had the cracking and popping but it is starting to get louder. She is also complaining of new onset pressure in the back of her knee as well as some swelling of the knee joint. She is having increased difficulty with stairs having to go up one of the time. She is also complaining of some periods of instability of the knee. She takes OTC pain medications but they do not provide her with adequate pain relief. PMH: Allergies Allergen Reactions Sultrin Other Rash Sultran cream Current Outpatient Medications: calcium carbonate-vitamin D2 500 mg(1,250mg) -200 unit tablet, Take 1 (one) tablet (500 mg total) by mouth 2 (two) times a day ., Disp: , Rfl: cholecalciferol, vitamin D3, (VITAMIN D3 ORAL), Take by mouth ., Disp: , Rfl: escitalopram oxalate (LEXAPRO) 10 MG tablet, Take 1 (one) tablet (10 mg total) by mouth daily ., Disp: , Rfl: levothyroxine (SYNTHROID, LEVOTHROID) 100 MCG tablet, Take 1 (one) tablet (100 mcg total) by mouth once daily ., Disp: , Rfl: LOSARTAN POTASSIUM, BULK, MISC, by Miscellaneous route ., Disp: , Rfl: Past Medical History: Diagnosis Date Depression Fractures Hypertension Ringing in ears Past Surgical History: Procedure Laterality Date BLADDER REPAIR CARPAL TUNNEL RELEASE ROTATOR CUFF REPAIR Right TRIGGER FINGER RELEASE left middle and index finger Social History Socioeconomic History Marital status: Single Tobacco Use Smoking status: Never Smokeless tobacco: Never Substance and Sexual Activity Alcohol use: Yes Drug use: Not Currently The patient's past medical history, surgical history, social history, family history, medications and allergies were reviewed with the patient today and are available in the chart for further review. ROS: Review of Systems Constitutional: Negative for activity change and fatigue. HENT: Negative for congestion, hearing loss and trouble swallowing. Eyes: Negative for visual disturbance. Respiratory: Negative for chest tightness and shortness of breath. Cardiovascular: Negative for chest pain and palpitations. Gastrointestinal: Negative for abdominal pain, diarrhea, nausea and vomiting. Endocrine: Negative for polydipsia, polyphagia and polyuria. Genitourinary: Negative for decreased urine volume, difficulty urinating and hematuria. Musculoskeletal: Positive for arthralgias and myalgias. Negative for joint swelling. Skin: Negative for color change, rash and wound. Allergic/Immunologic: Negative for immunocompromised state. Neurological: Negative for dizziness, weakness, light-headedness and numbness. Hematological: Does not bruise/bleed easily. Psychiatric/Behavioral: Negative for confusion and sleep disturbance. The patient is not nervous/anxious. PE: Physical Exam Constitutional: Appearance: She is well-developed. HENT: Head: Normocephalic. Eyes: Pupils: Pupils are equal, round, and reactive to light. Cardiovascular: Rate and Rhythm: Normal rate and regular rhythm. Pulmonary: Effort: Pulmonary effort is normal. Breath sounds: Normal breath sounds. Abdominal: General: Bowel sounds are normal. Palpations: Abdomen is soft. Musculoskeletal: General: Swelling and tenderness present. Normal range of motion. Cervical back: Normal range of motion and neck supple. Left knee: Instability Tests: Medial Joselin test negative and lateral Joselin test negative. Skin: General: Skin is warm and dry. Neurological: Mental Status: She is alert and oriented to person, place, and time. ORTHO: Left Knee Exam Tenderness The patient is experiencing tenderness in the medial joint line and MCL (posterior). Range of Motion The patient has normal left knee ROM. Tests Joselin: Medial - negative Lateral - negative Varus: negative Valgus: negative Drawer: Anterior - negative Posterior - negative Other Erythema: absent Scars: absent Sensation: normal Pulse: present Swelling: mild Imaging:L Knee: Mild medial compartment joint space narrowing. Small tricompartmental osteophytes. No joint effusion. Assessment/Plan: After examination and reviewing the patient x-ray images we discussed treatment options for the left knee. I did offer her cortisone injection which she gladly accepted. I did this without complications and she tolerated this well. If there is no improvement in 2 weeks she will return to the office for follow-up. I did explain that if these provide her with adequate pain relief she is able to receive these every 3 months. She does verbalize understanding and is in agreement with the treatment plan. Diagnosis: Problem List Items Addressed This Visit None LG Jt Injection/Arthrocentesis: L knee Performed by: Sarah Ricketts CNP Authorized by: Sarah Ricketts CNP CPT 25208 - Large Joint Arthrocentesis: Consent given by: Patient Time out: Immediately prior to the procedure a time out was called Physician or proceduralist has discussed critical or nonroutine steps, procedure duration and anticipated blood loss: Yes Supporting Documentation: Indications: Pain and diagnostic evaluation Procedure Details: Location: Knee Site: L knee Prep: patient was prepped and draped in usual sterile fashion Needle size: 22 G Approach: Anterolateral Medications: 40 mg triamcinolone acetonide 40 mg/mL Anesthetic used: Lidocaine 1% Anesthetic amount (mL): 2 Patient tolerance: Patient tolerated the procedure well with no immediate complications Follow Up: No follow-ups on file. Sarah Ricketts CNP documented in this encounter [facility] Primary osteoarthritis of left knee- Primary History of claustrophobia [facility] Primary osteoarthritis of left knee- Primary [facility] Diagnosis Osteoarthritis of left knee, unspecified osteoarthritis type [facility] Diagnosis Osteoarthritis of left knee, unspecified osteoarthritis type- Primary [facility] Diagnosis Primary osteoarthritis of left knee- Primary [facility] Diagnosis Osteoarthritis of left knee, unspecified osteoarthritis type- Primary [facility] Diagnosis Osteoarthritis of left knee- Primary Osteoarthrosis, unspecified whether generalized or localized, lower leg Benign hypertension- Primary Essential hypertension, benign Hyperlipidemia, unspecified hyperlipidemia type Osteoarthritis of left knee, unspecified osteoarthritis type Preoperative cardiovascular examination Pre-operative cardiovascular examination Primary osteoarthritis of [facility] Osteoarthritis of left knee- Primary Osteoarthrosis, unspecified whether generalized or localized, lower leg Primary osteoarthritis of left knee- Primary History of low potassium Primary osteoarthritis of left knee [facility] Status post total left knee replacement- Primary [facility] Diagnosis Status post total left knee replacement [facility] Diagnosis Status post total left knee replacement- Primary [facility] Diagnosis Status post total left knee replacement- Primary [facility] Diagnosis Status post total left knee replacement- Primary [facility] Status post total left knee replacement- Primary [facility] [facility] Diagnosis Status post total left knee replacement- [facility] total [facility]- [facility] Status post total left knee replacement- [facility] Status post total left knee replacement- [facility] Diagnosis Status post total left knee replacement- [facility] Diagnosis Status post total left knee replacement- Primary [facility] Diagnosis Routine general medical examination at health care facility- Primary Routine general medical examination at a health care facility Benign hypertension Essential hypertension, benign Mixed hyperlipidemia Acquired hypothyroidism Unspecified hypothyroidism Mixed anxiety depressive disorder Primary osteoarthritis of left knee documented in this encounter [facility] Work Phone: Evaluation note* Diagnosis Encounter for screening for malignant neoplasm of colon- Primary documented in this encounter [facility] Work Phone: Evaluation note* Diagnosis Encounter for screening for malignant neoplasm of colon- Primary documented in this encounter [facility] Work Phone: History of Present illness Narrative* The patient is being seen for the subsequent annual wellness visit. * Past Medical, Surgical and Family History: reviewed and updated in chart. * Interval History: Patient has not been hospitalized previously. * Medications and Supplements: Medications and supplements, including calcium and vitamins reviewed and updated in chart. * No, the patient is not using opioids. * Health Risk Assessment:. Paper HRA completed by patient and scanned into chart. * Patient Self Assessment of Health Status: excellent. * Tobacco use: Non-User * Alcohol use: User, As noted in social history <1week. * Illicit drug use: Non-User * Current diet: well balanced diet. * Exercise Frequency: regularly. * Depression/Suicide Screening: Patient has a current diagnosis of depression. * Hearing Impairment: Patient has significant hearing impairment, bilaterally, She uses a hearing aid. * Cognitive Impairment: No cognitive impairment observed. * Bathing: performs independently. * Dressing: performs independently. * Walking: performs independently. * Toileting: performs independently. * Feeding: performs independently. * Personal Hygiene: performs independently. * Bowels: continent. * Bladder: continent. * Managing Finances: performs independently. * Shopping: performs independently. * Managing Medications: performs independently. * Housework / Basic Home Maintenance: performs independently. * Handling Transportation: performs independently. * Preparing Meals: performs independently. * Using the Telephone/ Communication Devices: performs independently. * Falls Risk Screening:. JUNIE has not fallen in the last 6 months. * Home safety risk factors: no grab bars in the bathroom. * Since the last office visit there have been no interval operations, hospitalizations, important illnesses or injuries. * HTN-Takes and tolerates meds without side effects. No alcohol. no tobacco. reg exercise. low salt. Reviewed recommendation for 150 minutes of exercise per week including 2 days of weight training if over age 50 * mood is good * Hypothyroid- is euthyroid on replacement. Thyroid ros is unremarkable. * Hyperlipidemia- is not on statin and a prudent diet. and lost 7# [facility] Work Phone: History of Present illness Narrative* Since the last office visit there have been no interval operations, hospitalizations, important illnesses or injuries. * Hyperlipidemia- is not on statin and a prudent diet. * HTN-Takes and tolerates meds without side effects. No alcohol. no tobacco. no exercise. low salt. Reviewed recommendation for 150 minutes of exercise per week including 2 days of weight training if over age 50 * mood is good in all ways of my life * Hypothyroid- is over suppressed on 112 on replacement. Thyroid ros is unremarkable. full replace is128. no change as prev >3 * willget dexa and mmg in [place] woth dr BENSON. * colon utd * had J&J and had tachycardia fever nausea and syncope, so no booster accepted [facility] Work Phone: History of Present illness Narrative* The patient is being seen for the subsequent annual wellness visit. * Past Medical, Surgical and Family History: reviewed and updated in chart. * Interval History: Patient has not been hospitalized previously. * Medications and Supplements: Review of all medications by a prescribing practitioner or clinical pharmacist (such as prescriptions, OTCs, herbal therapies and supplements) documented in the medical record. * No, the patient is not using opioids. * Health Risk Assessment:. Paper HRA completed by patient and scanned into chart. * Patient Self Assessment of Health Status: excellent. * Tobacco use: Non-User * Alcohol use: User, As noted in social history <1week. * Illicit drug use: Non-User * Current diet: well balanced diet. * Exercise Frequency: regularly. * Depression/Suicide Screening: Patient has a current diagnosis of depression. * Hearing Impairment: Patient has significant hearing impairment, bilaterally, She uses a hearing aid. * Cognitive Impairment: No cognitive impairment observed. * Bathing: performs independently. * Dressing: performs independently. * Walking: performs independently. * Toileting: performs independently. * Feeding: performs independently. * Personal Hygiene: performs independently. * Bowels: continent. * Bladder: continent. * Managing Finances: performs independently. * Shopping: performs independently. * Managing Medications: performs independently. * Housework / Basic Home Maintenance: performs independently. * Handling Transportation: performs independently. * Preparing Meals: performs independently. * Using the Telephone/ Communication Devices: performs independently. * Falls Risk Screening:. JUNIE has not fallen in the last 6 months. * Home safety risk factors: no grab bars in the bathroom. * Advance directives:. Advance Care Planning discussed and documented in the medical record, patient did not wish or was not able to name a surrogate decision maker or provide an advance care plan. Patient has living will. Patient has healthcare POA. * Since the last office visit there have been no interval operations, hospitalizations, important illnesses or injuries. * HTN-Takes and tolerates meds without side effects. No alcohol. no tobacco. no formal, but active exercise. low salt. Reviewed recommendation for 150 minutes of exercise per week including 2 days of weight training if over age 50 * mood is excellent, desires to continue * Hypothyroid- is euthyroid on replacement. Thyroid ros is unremarkable. * recc flu and covid series * had breast bx after mmg, has fu us in jan [facility] Work Phone: History of Present illness Narrative* Since the last office visit there have been no interval operations, hospitalizations, important illnesses or injuries. * HTN-Takes and tolerates meds without side effects. No alcohol. no tobacco. no exercise. low salt. Reviewed recommendation for 150 minutes of exercise per week including 2 days of weight training if over age 50 * mood is wonderful and wants to cont, tried taper a few yrsa go and was weepy * Hypothyroid- is oversuppressed on replacement. Thyroid ros is unremarkable. [facility] Work Phone: Instructions* Name Dates Details Instructions not documented [facility] Work Phone: patient's home Plan of care note* Visit Details Visit Type -[facility] Star t of Care Discipline -Mcc Problems Problem Start Date Status Goals Interventions Assess and Instruct Home Visit Disciplines: Mcc 10/04/2022 Active 1 goal linked to scheduled/documented intervention 4 goal interventions scheduled/documented in this visit Medication Management Disciplines: Mcc 10/04/2022 Active 1 goal linked to scheduled/documented intervention 1 goal intervention scheduled/documented in this visit Pain Management Disciplines: Mcc 10/04/2022 Active 1 goal linked to scheduled/documented intervention 1 goal intervention scheduled/documented in this visit Wound Care and/or Skin Problems Disciplines: Mcc 10/04/2022 Active 1 goal linked to scheduled/documented intervention 1 goal intervention scheduled/documented in this visit Cardiac Disciplines: Mcc 10/04/2022 Active 1 goal linked to scheduled/documented intervention 1 goal intervention scheduled/documented in this visit Goals Goal Associated Problem Outcome Goal Met? Visit Notes Home Care Plan Assess and Instruct Home Visit No Medications Medication Management No Pain Pain Management No Wound/Incision Wound Care and/or Skin Problems No Cardiac Function Cardiac No Interventions Intervention Associated Problem/Goal Status Variance Visit Notes Falls Problem:Assess and Instruct Home Visit Goal:Home Care Plan Completed Clinician taught: patient 4-10 Patient IS at risk for falls (a score of 6 or greater is a predictor of future falls) and clinician instructed: proper footwear and assistive device usage Patient/caregiver was able to demonstrate 100% via teachback Safety Problem:Assess and Instruct Home Visit Goal:Home Care Plan Completed Assessed patient vulnerability and home safety risks: yes Equipment reviewed walker Patient at risk for harm or abuse no Family members involved in safety plan for Level 2 or 3 na Discharge Planning Problem:Assess and Instruct Home Visit Goal:Home Care Plan Completed Home Visit DC Planning: Spoke with patient about DC planning. 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 and unsteady gait/poor balance DC will occur when: patient/caregiver can teach back independence with adls and goals met Anticipate DC: On time Patient and/or caregiver response to discharge planning education: verbalized understanding Plan for Next Visit Problem:Assess and Instruct Home Visit Goal:Home Care Plan Completed Follow up education for next visit: signs and symptoms to report, disease process teaching on hypertension, home safety education Skilled intervention at next visit: cp assessment, medication reconciliation, wound assessment Instruct Medication Management Problem:Medication Management Goal:Medications Completed Home Visit Med Education: Medication list reconciled. Medication profile and in-home medication list updated with appropriate changes. Discrepanices noted during home visit: none Instructed patient on dosing, purpose, and side effects. Medication education completed today on losartan medication(s). Patient/caregiver is able to teach back 100% of instruction. Assess Pain Characteristics and Current Pain Regimen and Instruct Methods of Pain Relief Problem:Pain Management Goal:Pain Completed Wound/Incision Problem:Wound Care and/or Skin Problems Goal:Wound/Incision Completed surgical incision to right knee is covered with non removable dressing with slight swelling and no drainage noted on dressing Instruct Impaired Cardiac Function Problem:Cardiac Goal:Cardiac Function Patient/Caregiver will teach back self-management of hypertension by the following date: 10/22/22 [facility] Visit Details Visit Type -PT Initial Evalu ation Discipline -Physical Therapy Problems Problem Start Date Status Goals Interventions Assess and Instruct Home Visit Disciplines: Physical Therapy 10/05/2022 Active 2 goals linked to scheduled/documented interventions 4 goal interventions scheduled/documented in this visit Goals Goal Associated Problem Outcome Goal Met? Visit Notes Medications Assess and Instruct Home Visit No Home Care Plan Assess and Instruct Home Visit No Interventions Intervention Associated Problem/Goal Status Variance Visit Notes Instruct Medication Management Problem:Assess and Instruct Home Visit Goal:Medications Scheduled Falls Problem:Assess and Instruct Home Visit Goal:Home Care Plan Scheduled Safety Problem:Assess and Instruct Home Visit Goal:Home Care Plan Scheduled Plan for Next Visit Problem:Assess and Instruct Home Visit Goal:Home Care Plan Scheduled [facility] Visit Details Visit Type -[facility] Routine Discipline -Mcc Problems Problem Start Date Status Goals Interventions Assess and Instruct Home Visit Disciplines: Mcc 10/04/2022 Active 1 goal linked to scheduled/documented intervention 4 goal interventions scheduled/documented in this visit Medication Management Disciplines: Mcc 10/04/2022 Active 1 goal linked to scheduled/documented intervention 1 goal intervention scheduled/documented in this visit Pain Management Disciplines: Mcc 10/04/2022 Active 1 goal linked to scheduled/documented intervention 1 goal intervention scheduled/documented in this visit Wound Care and/or Skin Problems Disciplines: Mcc 10/04/2022 Active 1 goal linked to scheduled/documented intervention 1 goal intervention scheduled/documented in this visit Goals Goal Associated Problem Outcome Goal Met? Visit Notes Home Care Plan Assess and Instruct Home Visit No Medications Medication Management No Pain Pain Management No Wound/Incision Wound Care and/or Skin Problems No Interventions Intervention Associated Problem/Goal Status Variance Visit Notes Falls Problem:Assess and Instruct Home Visit Goal:Home Care Plan Completed No Falls Safety Problem:Assess and Instruct Home Visit Goal:Home Care Plan Completed Discharge Planning Problem:Assess and Instruct Home Visit Goal:Home Care Plan Completed Plan for Next Visit Problem:Assess and Instruct Home Visit Goal:Home Care Plan Completed Instruct Medication Management Problem:Medication Management Goal:Medications Completed taking care of meds. Assess Pain Characteristics and Current Pain Regimen and Instruct Methods of Pain Relief Problem:Pain Management Goal:Pain Completed Wound/Incision Problem:Wound Care and/or Skin Problems Goal:Wound/Incision Completed Dressing Clean, Dry, Intact. [facility] Visit Details Visit Type -[facility]AS[facility] Star t of Care Discipline -Mcc Problems Problem Start Date Status Goals Interventions Assess and Instruct Home Visit Disciplines: Mcc 10/04/2022 Active 1 goal linked to scheduled/documented intervention 4 goal interventions scheduled/documented in this visit Medication Management Disciplines: Mcc 10/04/2022 Active 1 goal linked to scheduled/documented intervention 1 goal intervention scheduled/documented in this visit Pain Management Disciplines: Mcc 10/04/2022 Active 1 goal linked to scheduled/documented intervention 1 goal intervention scheduled/documented in this visit Wound Care and/or Skin Problems Disciplines: Mcc 10/04/2022 Active 1 goal linked to scheduled/documented intervention 1 goal intervention scheduled/documented in this visit Cardiac Disciplines: Mcc 10/04/2022 Active 1 goal linked to scheduled/documented intervention 1 goal intervention scheduled/documented in this visit Goals Goal Associated Problem Outcome Goal Met? Visit Notes Home Care Plan Assess and Instruct Home Visit No Medications Medication Management No Pain Pain Management No Wound/Incision Wound Care and/or Skin Problems No Cardiac Function Cardiac No Interventions Intervention Associated Problem/Goal Status Variance Visit Notes Falls Problem:Assess and Instruct Home Visit Goal:Home Care Plan Completed Clinician taught: patient 4-10 Patient IS at risk for falls (a score of 6 or greater is a predictor of future falls) and clinician instructed: proper footwear and assistive device usage Patient/caregiver was able to demonstrate 100% via teachback Safety Problem:Assess and Instruct Home Visit Goal:Home Care Plan Completed Assessed patient vulnerability and home safety risks: yes Equipment reviewed walker Patient at risk for harm or abuse no Family members involved in safety plan for Level 2 or 3 na Discharge Planning Problem:Assess and Instruct Home Visit Goal:Home Care Plan Completed Home Visit DC Planning: Spoke with patient about DC planning. 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 and unsteady gait/poor balance DC will occur when: patient/caregiver can teach back independence with adls and goals met Anticipate DC: On time Patient and/or caregiver response to discharge planning education: verbalized understanding Plan for Next Visit Problem:Assess and Instruct Home Visit Goal:Home Care Plan Completed Follow up education for next visit: signs and symptoms to report, disease process teaching on hypertension, home safety education Skilled intervention at next visit: cp assessment, medication reconciliation, wound assessment Instruct Medication Management Problem:Medication Management Goal:Medications Completed Home Visit Med Education: Medication list reconciled. Medication profile and in-home medication list updated with appropriate changes. Discrepanices noted during home visit: none Instructed patient on dosing, purpose, and side effects. Medication education completed today on losartan medication(s). Patient/caregiver is able to teach back 100% of instruction. Assess Pain Characteristics and Current Pain Regimen and Instruct Methods of Pain Relief Problem:Pain Management Goal:Pain Completed Wound/Incision Problem:Wound Care and/or Skin Problems Goal:Wound/Incision Completed surgical incision to right knee is covered with non removable dressing with slight swelling and no drainage noted on dressing Instruct Impaired Cardiac Function Problem:Cardiac Goal:Cardiac Function Patient/Caregiver will teach back self-management of hypertension by the following date: 10/22/22 [facility] Visit Details Visit Type -[employer] SPECIALIST Routine Visi t Discipline -Physical Therapy Problems Problem Start Date Status Goals Interventions Assess and Instruct Home Visit Disciplines: Physical Therapy 10/05/2022 Active 3 goals linked to scheduled/documented interventions 5 goal interventions scheduled/documented in this visit Home Exercise Program Disciplines: Physical Therapy 10/05/2022 Active 1 goal linked to scheduled/documented intervention 1 goal intervention scheduled/documented in this visit Mobility Disciplines: Physical Therapy 10/05/2022 Active 1 goal linked to scheduled/documented intervention 1 goal intervention scheduled/documented in this visit Goals Goal Associated Problem Outcome Goal Met? Visit Notes Pain Assess and Instruct Home Visit No Medications Assess and Instruct Home Visit No Home Care Plan Assess and Instruct Home Visit No Home Exercise Program Home Exercise Program No Mobility Mobility No Interventions Intervention Associated Problem/Goal Status Variance Visit Notes Pain Management Problem:Assess and Instruct Home Visit Goal:Pain Completed Patient reports: pain in L knee Clinician taught: patient Clinician instructed on: CONTENT PRODUCTION SPECIALIST provided education to pt. on pain management techniques including icing/elevation, rest, repositioning, ambulation, and HEP to reduce symptoms. Reviewed proper elevation technique for optimal benefits with good understanding noted. Patient/caregiver is able to teach back 75% of instruction. Instruct Medication Management Problem:Assess and Instruct Home Visit Goal:Medications Completed Home Visit Med Education: Medication list reconciled. Medication profile and in-home medication list updated with appropriate changes. Discrepanices noted during home visit: none Instructed patient on dosing, purpose, and side effects. Patient/caregiver is able to teach back 100% of instruction. Falls Problem:Assess and Instruct Home Visit Goal:Home Care Plan Completed Clinician taught: patient Clinician instructed: proper footwear, assistive device usage, keep frequently used items in reach and emergency response system and/or keep phone on you and reviewed universal fall precautions to reduce risk of falling. Patient/caregiver was able to demonstrate 75% via teachback Safety Problem:Assess and Instruct Home Visit Goal:Home Care Plan Completed Assessed patient vulnerability and home safety risks: fall risk Equipment reviewed FWW Patient at risk for harm or abuse no Family members involved in safety plan Plan for Next Visit Problem:Assess and Instruct Home Visit Goal:Home Care Plan Completed Follow up education for next visit: continue to progress with activities as tolerated, safety precautions, progress HEP Skilled intervention at next visit: CONTENT PRODUCTION SPECIALIST will provide skilled education on proper technique and appropriate progression of ther ex/act/amb as tolerated to continue to progress towards LTGs. Home Exercise Program Problem:Home Exercise Program Goal:Home Exercise Program Completed Patient reports: compliance with HEP per TKR protocol Clinician taught: patient Clinician instructed on: Educated pt. on importance of HEP for max benefits of therapy. Reviewed booklet. Patient/caregiver is able to teach back 75% of instruction. Instruct Mobility Problem:Mobility Goal:Mobility Completed Patient reports: no falls, amb often with walker Clinician taught: patient Clinician instructed on: CONTENT PRODUCTION SPECIALIST provides skilled instruct to ambulate with FWW with CONTENT PRODUCTION SPECIALIST SBA during - provides cues/education to improve overall gait sequencing/pattern to maximize safety and decrease fall risk in order to progress independence towards STGs/LTGs. Pt. presents with slight forward flexion, decreased macie, decreased step height/length. Emphasis on heel toe gait with step through gait pattern for overall improved gait pattern. CONTENT PRODUCTION SPECIALIST provided cueing for upright posture and staying within close proximity of walker for improved technique and positioning. Patient/caregiver is able to teach back 75% of instruction. [facility] Visit Details Visit Type -[employer] SPECIALIST Routine Visi t Discipline -Physical Therapy Problems Problem Start Date Status Goals Interventions Assess and Instruct Home Visit Disciplines: Physical Therapy 10/05/2022 Active 3 goals linked to scheduled/documented interventions 5 goal interventions scheduled/documented in this visit Home Exercise Program Disciplines: Physical Therapy 10/05/2022 Active 1 goal linked to scheduled/documented intervention 1 goal intervention scheduled/documented in this visit Mobility Disciplines: Physical Therapy 10/05/2022 Active 1 goal linked to scheduled/documented intervention 1 goal intervention scheduled/documented in this visit Goals Goal Associated Problem Outcome Goal Met? Visit Notes Pain Assess and Instruct Home Visit No Medications Assess and Instruct Home Visit No Home Care Plan Assess and Instruct Home Visit No Home Exercise Program Home Exercise Program No Mobility Mobility No Interventions Intervention Associated Problem/Goal Status Variance Visit Notes Pain Management Problem:Assess and Instruct Home Visit Goal:Pain Completed Patient reports: pain in L knee Clinician taught: patient Clinician instructed on: CONTENT PRODUCTION SPECIALIST provided education to pt. on pain management techniques including icing/elevation, rest, repositioning, ambulation, and HEP to reduce symptoms. Reviewed proper elevation technique for optimal benefits with good understanding noted. Patient/caregiver is able to teach back 75% of instruction. Instruct Medication Management Problem:Assess and Instruct Home Visit Goal:Medications Completed Home Visit Med Education: Medication list reconciled. Medication profile and in-home medication list updated with appropriate changes. Discrepanices noted during home visit: none Instructed patient on dosing, purpose, and side effects. Patient/caregiver is able to teach back 100% of instruction. Falls Problem:Assess and Instruct Home Visit Goal:Home Care Plan Completed Clinician taught: patient Clinician instructed: proper footwear, assistive device usage, keep frequently used items in reach and emergency response system and/or keep phone on you and reviewed universal fall precautions to reduce risk of falling. Patient/caregiver was able to demonstrate 75% via teachback Safety Problem:Assess and Instruct Home Visit Goal:Home Care Plan Completed Assessed patient vulnerability and home safety risks: fall risk Equipment reviewed FWW Patient at risk for harm or abuse no Family members involved in safety plan Plan for Next Visit Problem:Assess and Instruct Home Visit Goal:Home Care Plan Completed Follow up education for next visit: continue to progress with activities as tolerated, safety precautions, progress HEP Skilled intervention at next visit: CONTENT PRODUCTION SPECIALIST will provide skilled education on proper technique and appropriate progression of ther ex/act/amb as tolerated to continue to progress towards LTGs. Home Exercise Program Problem:Home Exercise Program Goal:Home Exercise Program Completed Patient reports: compliance with HEP per TKR protocol Clinician taught: patient Clinician instructed on: Educated pt. on importance of HEP for max benefits of therapy. Reviewed booklet. Patient/caregiver is able to teach back 75% of instruction. Instruct Mobility Problem:Mobility Goal:Mobility Completed Patient reports: no falls, amb often with walker Clinician taught: patient Clinician instructed on: CONTENT PRODUCTION SPECIALIST provides skilled instruct to ambulate with FWW with CONTENT PRODUCTION SPECIALIST SBA during - provides cues/education to improve overall gait sequencing/pattern to maximize safety and decrease fall risk in order to progress independence towards STGs/LTGs. Pt. presents with slight forward flexion, decreased macie, decreased step height/length. Emphasis on heel toe gait with step through gait pattern for overall improved gait pattern. CONTENT PRODUCTION SPECIALIST provided cueing for upright posture and staying within close proximity of walker for improved technique and positioning. Patient/caregiver is able to teach back 75% of instruction. [facility] Visit Details Visit Type -CONTENT PRODUCTION SPECIALIST Routine Visi t Discipline -Physical Therapy Problems Problem Start Date Status Goals Interventions Assess and Instruct Home Visit Disciplines: Physical Therapy 10/05/2022 Active 3 goals linked to scheduled/documented interventions 5 goal interventions scheduled/documented in this visit Home Exercise Program Disciplines: Physical Therapy 10/05/2022 Active 1 goal linked to scheduled/documented intervention 1 goal intervention scheduled/documented in this visit Mobility Disciplines: Physical Therapy 10/05/2022 Active 1 goal linked to scheduled/documented intervention 1 goal intervention scheduled/documented in this visit Goals Goal Associated Problem Outcome Goal Met? Visit Notes Pain Assess and Instruct Home Visit No Medications Assess and Instruct Home Visit No Home Care Plan Assess and Instruct Home Visit No Home Exercise Program Home Exercise Program No Mobility Mobility No Interventions Intervention Associated Problem/Goal Status Variance Visit Notes Pain Management Problem:Assess and Instruct Home Visit Goal:Pain Completed Patient reports: pt. denies any pain at rest, presents increased pain with knee flexion exercises. Quickly subsides with rest. Clinician taught: patient and caregiver Clinician instructed on: CONTENT PRODUCTION SPECIALIST reviewed pain management techniques including icing/elevation, repositioning, amb to reduce symptoms. Patient/caregiver is able to teach back 80% of instruction. Instruct Medication Management Problem:Assess and Instruct Home Visit Goal:Medications Completed Home Visit Med Education: Medication list reconciled. Medication profile and in-home medication list updated with appropriate changes. Discrepanices noted during home visit: none Instructed patient on dosing, purpose, and side effects. Patient/caregiver is able to teach back 100% of instruction. Falls Problem:Assess and Instruct Home Visit Goal:Home Care Plan Completed Clinician taught: patient Clinician instructed: proper footwear, assistive device usage, keep frequently used items in reach and emergency response system and/or keep phone on you and reviewed universal fall precautions to reduce risk of falling. Patient/caregiver was able to demonstrate 90% via teachback Safety Problem:Assess and Instruct Home Visit Goal:Home Care Plan Completed Assessed patient vulnerability and home safety risks: fall risk Equipment reviewed FWW, SPC Patient at risk for harm or abuse no Family members involved in safety plan Plan for Next Visit Problem:Assess and Instruct Home Visit Goal:Home Care Plan Completed Follow up education for next visit: continue to progress with activities as tolerated, safety precautions, continue progressing HEP Skilled intervention at next visit: CONTENT PRODUCTION SPECIALIST will provide skilled education on proper technique and appropriate progression of ther ex/act/amb as tolerated to continue to progress towards LTGs. Home Exercise Program Problem:Home Exercise Program Goal:Home Exercise Program Completed Patient reports: understanding and compliance with completing HEP Clinician taught: patient Clinician instructed on: CONTENT PRODUCTION SPECIALIST provided education to pt. on appropriate progression of ther ex/act/amb to facilitate increased strengthening/act tolerance for improved ability to complete functional transfers and progress towards LTGs. Patient/caregiver is able to teach back 80% of instruction. Instruct Mobility Problem:Mobility Goal:Mobility Completed Patient reports: no falls, amb often with walker Clinician taught: patient Clinician instructed on: CONTENT PRODUCTION SPECIALIST provides skilled instruct to ambulate with FWW with CONTENT PRODUCTION SPECIALIST SBA during - provides cues/education to improve overall gait sequencing/pattern to maximize safety and decrease fall risk in order to progress independence towards STGs/LTGs. Pt. presents with slight forward flexion, decreased macie, decreased step height/length. Emphasis on heel toe gait with step through gait pattern for overall improved gait pattern. Pt. states use of cane intermittently over the weekend with CONTENT PRODUCTION SPECIALIST providing education on use in R UE and proper sequencing with cane. Antalgic gait noted with decreased L LE knee flexion. With cueing, pt. is able to improve sequencing, decrease limp, improve knee flexion. CONTENT PRODUCTION SPECIALIST advised pt. to continue use of walker to reeducate muscles to amb properly without antalgic gait. pt. completed home entry/exit through garage at [facility] with use of cane and demonstrates ability to amb to end of driveway at [facility]/SBA to challenge act tolerance with cueing for sequencing, safety during directional changes, increased knee flexion with improved technique noted. Patient/caregiver is able to teach back 80% of instruction. [facility] Visit Details Visit Type -SN HH Routine Vi sit Discipline -Mcc Problems Problem Start Date Status Goals Interventions Assess and Instruct Home Visit Disciplines: Mcc 10/04/2022 Active 1 goal linked to scheduled/documented intervention 4 goal interventions scheduled/documented in this visit Medication Management Disciplines: Mcc 10/04/2022 Active 1 goal linked to scheduled/documented intervention 1 goal intervention scheduled/documented in this visit Pain Management Disciplines: Mcc 10/04/2022 Active 1 goal linked to scheduled/documented intervention 1 goal intervention scheduled/documented in this visit Wound Care and/or Skin Problems Disciplines: Mcc 10/04/2022 Active 1 goal linked to scheduled/documented intervention 1 goal intervention scheduled/documented in this visit Goals Goal Associated Problem Outcome Goal Met? Visit Notes Home Care Plan Assess and Instruct Home Visit No Medications Medication Management No Pain Pain Management No Wound/Incision Wound Care and/or Skin Problems No Interventions Intervention Associated Problem/Goal Status Variance Visit Notes Falls Problem:Assess and Instruct Home Visit Goal:Home Care Plan Completed Clinician taught: patient 4-10 Patient IS at risk for falls (a score of 6 or greater is a predictor of future falls) and clinician instructed: proper footwear and walker Patient/caregiver was able to demonstrate 100% via teachback Safety Problem:Assess and Instruct Home Visit Goal:Home Care Plan Completed Assessed patient vulnerability and home safety risks: yes Equipment reviewed walker Patient at risk for harm or abuse no Family members involved in safety plan for Level 2 or 3 na Discharge Planning Problem:Assess and Instruct Home Visit Goal:Home Care Plan Completed Home Visit DC Planning: Spoke with patient about DC planning. Assessed for limited ambulation related to left knee surgery DC will occur when: patient/caregiver is able to demonstrate independence in care Anticipate DC: On time Patient and/or caregiver response to discharge planning education: verbalized an understanding Plan for Next Visit Problem:Assess and Instruct Home Visit Goal:Home Care Plan Completed Follow up education for next visit: post op care Skilled intervention at next visit: Cp assessment, education Instruct Medication Management Problem:Medication Management Goal:Medications Completed Home Visit Med Education: Medication list reconciled. Medication profile and in-home medication list updated with appropriate changes. Discrepanices noted during home visit: none Instructed patient on dosing, purpose, and side effects. Medication education completed today on oxycodone medication(s). Patient/caregiver is able to teach back 100% of instruction. Assess Pain Characteristics and Current Pain Regimen and Instruct Methods of Pain Relief Problem:Pain Management Goal:Pain Completed Wound/Incision Problem:Wound Care and/or Skin Problems Goal:Wound/Incision Completed Wound is covered with non removable drsg Educated patient on that dressing is to remain in place until seen by surgeon. Informed that there is silver in the dressing that fights bacteria on the skin patient able to verbalize understanding that dressin is to remain in place until seen by surgeon. No concerns voiced [facility] Visit Details Visit Type -CONTENT PRODUCTION SPECIALIST Routine Visi t Discipline -Physical Therapy Problems Problem Start Date Status Goals Interventions Assess and Instruct Home Visit Disciplines: Physical Therapy 10/05/2022 Active 3 goals linked to scheduled/documented interventions 5 goal interventions scheduled/documented in this visit Home Exercise Program Disciplines: Physical Therapy 10/05/2022 Active 1 goal linked to scheduled/documented intervention 1 goal intervention scheduled/documented in this visit Mobility Disciplines: Physical Therapy 10/05/2022 Active 1 goal linked to scheduled/documented intervention 1 goal intervention scheduled/documented in this visit Goals Goal Associated Problem Outcome Goal Met? Visit Notes Pain Assess and Instruct Home Visit No Medications Assess and Instruct Home Visit No Home Care Plan Assess and Instruct Home Visit No Home Exercise Program Home Exercise Program No Mobility Mobility No Interventions Intervention Associated Problem/Goal Status Variance Visit Notes Pain Management Problem:Assess and Instruct Home Visit Goal:Pain Completed pt. denies any pain at rest, states taking pain medication and states going to begin taking less pain medication. pt. states having knee pain with knee flexion exercises, pain subsides when knee extends. reviewed pain management techniques including icing/elevation, repositioning, amb to reduce symptoms if they occur. Instruct Medication Management Problem:Assess and Instruct Home Visit Goal:Medications Completed with variance Task already performed Falls Problem:Assess and Instruct Home Visit Goal:Home Care Plan Completed Clinician taught: patient Clinician instructed: proper footwear, assistive device usage, keep frequently used items in reach and emergency response system and/or keep phone on you and reviewed universal fall precautions to reduce risk of fallng. Patient/caregiver was able to demonstrate 85% via teachback Safety Problem:Assess and Instruct Home Visit Goal:Home Care Plan Completed Assessed patient vulnerability and home safety risks: fall risk Equipment reviewed SPC Patient at risk for harm or abuse no Family members involved in safety plan Plan for Next Visit Problem:Assess and Instruct Home Visit Goal:Home Care Plan Completed Follow up education for next visit: continue to progress with activities as tolerated, safety precautions, upgrade HEP Skilled intervention at next visit: CONTENT PRODUCTION SPECIALIST will provide skilled education on proper technique and appropriate progression of ther ex/act/amb as tolerated to continue to progress towards LTGs. Home Exercise Program Problem:Home Exercise Program Goal:Home Exercise Program Completed Patient reports: understanding and compliance with completing HEP Clinician taught: patient Clinician instructed on: CONTENT PRODUCTION SPECIALIST provided education to pt. on appropriate progression of ther ex/act/amb to facilitate increased strengthening/act tolerance for improved ability to complete functional transfers and progress towards LTGs. Patient/caregiver is able to teach back 85% of instruction. Instruct Mobility Problem:Mobility Goal:Mobility Completed Patient reports: no falls, amb often with walker Clinician taught: patient Clinician instructed on: CONTENT PRODUCTION SPECIALIST provides skilled instruct to ambulate with appropriate AD with CONTENT PRODUCTION SPECIALIST SBA during - provides cues/education to improve overall gait sequencing/pattern to maximize safety and decrease fall risk in order to progress independence towards STGs/LTGs. Pt. presents with decreased knee flexion on LLE with emphasis on heel toe gait with step through gait pattern for overall improved gait pattern. pt. completed home entry/exit through garage at [facility] with use of cane and demonstrates ability to amb to end of driveway at [facility]/SBA to challenge act tolerance with cueing for sequencing, safety during directional changes, increased knee flexion with improved technique noted. Improved eccentric control with STS noted after education. Patient/caregiver is able to teach back 85% of instruction. [facility] Visit Details Visit Type -SN HH Routine Vi sit Discipline -Mcc Problems Problem Start Date Status Goals Interventions Assess and Instruct Home Visit Disciplines: Mcc 10/04/2022 Active 1 goal linked to scheduled/documented intervention 4 goal interventions scheduled/documented in this visit Medication Management Disciplines: Mcc 10/04/2022 Active 1 goal linked to scheduled/documented intervention 1 goal intervention scheduled/documented in this visit Pain Management Disciplines: Mcc 10/04/2022 Active 1 goal linked to scheduled/documented intervention 1 goal intervention scheduled/documented in this visit Wound Care and/or Skin Problems Disciplines: Mcc 10/04/2022 Active 1 goal linked to scheduled/documented intervention 1 goal intervention scheduled/documented in this visit Goals Goal Associated Problem Outcome Goal Met? Visit Notes Home Care Plan Assess and Instruct Home Visit No Medications Medication Management No Pain Pain Management No Wound/Incision Wound Care and/or Skin Problems No Interventions Intervention Associated Problem/Goal Status Variance Visit Notes Falls Problem:Assess and Instruct Home Visit Goal:Home Care Plan Completed Clinician taught: patient 4-10 Patient IS at risk for falls (a score of 6 or greater is a predictor of future falls) and clinician instructed: remove clutter and throw rugs, assistive device usage, keep frequently used items in reach and emergency response system and/or keep phone on you Patient/caregiver was able to demonstrate 50% via teachback Safety Problem:Assess and Instruct Home Visit Goal:Home Care Plan Completed Assessed patient vulnerability and home safety risks: pets assistive device Equipment reviewed straight cane Patient at risk for harm or abuse none Family members involved in safety plan for Level 1 Discharge Planning Problem:Assess and Instruct Home Visit Goal:Home Care Plan Completed Home Visit DC Planning: Spoke with patient about DC planning. Assessed for limited ambulation related to left knee replacement and unsteady gait/poor balance DC will occur when: goals are met Anticipate DC: On time Patient and/or caregiver response to discharge planning education: attentive and cooperative Plan for Next Visit Problem:Assess and Instruct Home Visit Goal:Home Care Plan Completed Follow up education for next visit: s/s of infection pain mgmt Skilled intervention at next visit: wound assessment Instruct Medication Management Problem:Medication Management Goal:Medications Completed Home Visit Med Education: Medication list reconciled. Medication profile and in-home medication list updated with appropriate changes. Discrepanices noted during home visit: none Instructed patient on dosing, purpose, and side effects. Medication education completed today on all medication(s). Patient/caregiver is able to teach back 75% of instruction. Assess Pain Characteristics and Current Pain Regimen and Instruct Methods of Pain Relief Problem:Pain Management Goal:Pain Completed Wound/Incision Problem:Wound Care and/or Skin Problems Goal:Wound/Incision Completed Wound is progressing. Educated patient on hand hygiene and infection control techniques, signs/symptoms of infection and when to call or report concerns to home health or provider. patient able to verbalize teach back of hand hygiene and signs/symptoms of infection. patient able to return demonstration of hand hygiene and infection control techniques. patient continuing to require wound education on signs/symptoms of infection and when to call or report concerns to home health or provider. [facility] Visit Details Visit Type -CONTENT PRODUCTION SPECIALIST Routine Visi t Discipline -Physical Therapy Problems Problem Start Date Status Goals Interventions Assess and Instruct Home Visit Disciplines: Physical Therapy 10/05/2022 Active 3 goals linked to scheduled/documented interventions 5 goal interventions scheduled/documented in this visit Home Exercise Program Disciplines: Physical Therapy 10/05/2022 Active 1 goal linked to scheduled/documented intervention 1 goal intervention scheduled/documented in this visit Mobility Disciplines: Physical Therapy 10/05/2022 Active 1 goal linked to scheduled/documented intervention 1 goal intervention scheduled/documented in this visit Goals Goal Associated Problem Outcome Goal Met? Visit Notes Pain Assess and Instruct Home Visit No Medications Assess and Instruct Home Visit No Home Care Plan Assess and Instruct Home Visit No Home Exercise Program Home Exercise Program No Mobility Mobility No Interventions Intervention Associated Problem/Goal Status Variance Visit Notes Pain Management Problem:Assess and Instruct Home Visit Goal:Pain Completed pt. denies any pain at this time and is aware of pain management regime and states compliance. Instruct Medication Management Problem:Assess and Instruct Home Visit Goal:Medications Completed with variance Task already performed Falls Problem:Assess and Instruct Home Visit Goal:Home Care Plan Completed Clinician taught: patient Clinician instructed: proper footwear, assistive device usage, keep frequently used items in reach and emergency response system and/or keep phone on you and reviewed universal fall precautions to reduce risk of falling. Patient/caregiver was able to demonstrate 100% via teachback Safety Problem:Assess and Instruct Home Visit Goal:Home Care Plan Completed Assessed patient vulnerability and home safety risks: fall risk Equipment reviewed SPC Patient at risk for harm or abuse no Family members involved in safety plan Plan for Next Visit Problem:Assess and Instruct Home Visit Goal:Home Care Plan Completed Follow up education for next visit: continue to progress with activities as tolerated, safety precautions Skilled intervention at next visit: CONTENT PRODUCTION SPECIALIST will provide skilled education on proper technique and appropriate progression of ther ex/act/amb as tolerated to continue to progress towards LTGs. Home Exercise Program Problem:Home Exercise Program Goal:Home Exercise Program Completed Patient reports: understanding and compliance with completing HEP Clinician taught: patient Clinician instructed on: CONTENT PRODUCTION SPECIALIST provided education to pt. on appropriate progression of ther ex/act/amb to facilitate increased strengthening/act tolerance for improved ability to complete functional transfers and progress towards LTGs. Progress ther ex/act/amb for increased ROM and strengthening. Patient/caregiver is able to teach back 90% of instruction Instruct Mobility Problem:Mobility Goal:Mobility Completed Patient reports: no falls, amb often with walker Clinician taught: patient Clinician instructed on: CONTENT PRODUCTION SPECIALIST provides skilled instruct to ambulate with use of SPC with CONTENT PRODUCTION SPECIALIST SBA - S during - provides cues/education to improve overall gait sequencing/pattern to maximize safety and decrease fall risk in order to progress independence towards STGs/LTGs. Improved step through gait pattern wtih heel strike noted with use of cane. No LOB to note. Pt. challenged with amb without AD x 100 ft, SBA; pt presents with decreased knee flexion on LLE with emphasis on heel toe gait with step through gait pattern for overall improved gait pattern. Demo's ability to amb around home and through various threshholds/over rugs/changing terrain without LOB to note. pt. complete STS from various surface heights without difficulty. Patient/caregiver is able to teach back 85% of instruction. [facility] Visit Details Visit Type -CONTENT PRODUCTION SPECIALIST Routine Visi t Discipline -Physical Therapy Problems Problem Start Date Status Goals Interventions Assess and Instruct Home Visit Disciplines: Physical Therapy 10/05/2022 Active 3 goals linked to scheduled/documented interventions 5 goal interventions scheduled/documented in this visit Home Exercise Program Disciplines: Physical Therapy 10/05/2022 Active 1 goal linked to scheduled/documented intervention 1 goal intervention scheduled/documented in this visit Mobility Disciplines: Physical Therapy 10/05/2022 Active 1 goal linked to scheduled/documented intervention 1 goal intervention scheduled/documented in this visit Goals Goal Associated Problem Outcome Goal Met? Visit Notes Pain Assess and Instruct Home Visit No Medications Assess and Instruct Home Visit No Home Care Plan Assess and Instruct Home Visit No Home Exercise Program Home Exercise Program No Mobility Mobility No Interventions Intervention Associated Problem/Goal Status Variance Visit Notes Pain Management Problem:Assess and Instruct Home Visit Goal:Pain Completed Patient reports: having increased pain over the weekend, states 2/10 pain currently Clinician taught: patient Clinician instructed on: reviewed pain management and importance of completing HEP daily, amb, repositioning, icing/elevation to reduce symptoms. pt. states depsite pain, continues to complete HEP. Patient/caregiver is able to teach back 100% of instruction. Instruct Medication Management Problem:Assess and Instruct Home Visit Goal:Medications Completed with variance Task already performed Falls Problem:Assess and Instruct Home Visit Goal:Home Care Plan Completed Clinician taught: patient Clinician instructed: proper footwear, keep frequently used items in reach and emergency response system and/or keep phone on you and reviewed universal fall precautions to reduce risk of falling. Patient/caregiver was able to demonstrate 100% via teachback Safety Problem:Assess and Instruct Home Visit Goal:Home Care Plan Completed Assessed patient vulnerability and home safety risks: fall risk Equipment reviewed SPC Patient at risk for harm or abuse no Family members involved in safety plan Plan for Next Visit Problem:Assess and Instruct Home Visit Goal:Home Care Plan Completed Follow up education for next visit: continue to progress with activities as tolerated, safety precautions, progress amb sequencing and increased knee ROM Skilled intervention at next visit: CONTENT PRODUCTION SPECIALIST will provide skilled education on proper technique and appropriate progression of ther ex/act/amb as tolerated to continue to progress towards LTGs. Home Exercise Program Problem:Home Exercise Program Goal:Home Exercise Program Completed Patient reports: understanding and compliance with completing HEP Clinician taught: patient Clinician instructed on: CONTENT PRODUCTION SPECIALIST provided education to pt. on appropriate progression of ther ex/act/amb to facilitate increased strengthening/act tolerance for improved ability to complete functional transfers and progress towards LTGs. Progress ther ex/act/amb for increased ROM and strengthening. Patient/caregiver is able to teach back 100% of instruction Instruct Mobility Problem:Mobility Goal:Mobility Completed Patient reports: no falls, use of cane when amb outside, no AD in home unless increased pain noted. Clinician taught: patient Clinician instructed on: CONTENT PRODUCTION SPECIALIST provides skilled instruct to ambulate with SPC outside, states no AD in home with CONTENT PRODUCTION SPECIALIST S during - provides cues/education to improve overall gait sequencing/pattern to maximize safety and decrease fall risk in order to progress independence towards STGs/LTGs. Pt amb 150 ft x 1 step through gait pattern with improved heel strike and natural arm swing without AD at SBA/S. No LOB noted, no SOB. Improved safety during directional changes noted. Improved step symmetry. pt. tolerates STS from various surface heights in home, no difficulty completing at OK. Pt. challenged with amb over various surfaces in home including small step into side room with education on LE placement, ensuring inceased knee flexion/decreased circumduction for improved technique with good carryover. Patient/caregiver is able to teach back 100% of instruction. [facility] Visit Details Visit Type -SN HH Routine Vi sit Discipline -Mcc Problems Problem Start Date Status Goals Interventions Assess and Instruct Home Visit Disciplines: Mcc 10/04/2022 Active 1 goal linked to scheduled/documented intervention 4 goal interventions scheduled/documented in this visit Medication Management Disciplines: Mcc 10/04/2022 Active 1 goal linked to scheduled/documented intervention 1 goal intervention scheduled/documented in this visit Pain Management Disciplines: Mcc 10/04/2022 Active 1 goal linked to scheduled/documented intervention 1 goal intervention scheduled/documented in this visit Wound Care and/or Skin Problems Disciplines: Mcc 10/04/2022 Active 1 goal linked to scheduled/documented intervention 1 goal intervention scheduled/documented in this visit Goals Goal Associated Problem Outcome Goal Met? Visit Notes Home Care Plan Assess and Instruct Home Visit No Medications Medication Management No Pain Pain Management No Wound/Incision Wound Care and/or Skin Problems No Interventions Intervention Associated Problem/Goal Status Variance Visit Notes Falls Problem:Assess and Instruct Home Visit Goal:Home Care Plan Completed Clinician taught: patient and caregiver 4-10 Patient IS at risk for falls (a score of 6 or greater is a predictor of future falls) and clinician instructed: proper footwear and assistive device usage Patient/caregiver was able to demonstrate 100% via teachback Safety Problem:Assess and Instruct Home Visit Goal:Home Care Plan Completed Assessed patient vulnerability and home safety risks: yes Equipment reviewed cane Patient at risk for harm or abuse no Family members involved in safety plan for Level 2 or 3 na Discharge Planning Problem:Assess and Instruct Home Visit Goal:Home Care Plan Completed Home Visit DC Planning: Spoke with patient and caregiver about DC planning. Assessed for limited ambulation related to knee surgery and unsteady gait/poor balance DC will occur when: patient/caregiver is able to demonstrate goals met with ambulation and pain control Anticipate DC: On time Patient and/or caregiver response to discharge planning education: verbalized understanding Plan for Next Visit Problem:Assess and Instruct Home Visit Goal:Home Care Plan Completed Follow up education for next visit: discharge Skilled intervention at next visit: oasis discharge Instruct Medication Management Problem:Medication Management Goal:Medications Completed Home Visit Med Education: Medication list reconciled. Medication profile and in-home medication list updated with appropriate changes. Discrepanices noted during home visit: none Instructed patient on dosing, purpose, and side effects. Medication education completed today on protonix medication(s). Patient/caregiver is able to teach back 100% of instruction. Assess Pain Characteristics and Current Pain Regimen and Instruct Methods of Pain Relief Problem:Pain Management Goal:Pain Completed Wound/Incision Problem:Wound Care and/or Skin Problems Goal:Wound/Incision Completed Wound is progressing. Educated patient and caregiver on signs/symptoms of infection and when to call or report concerns to home health or provider. patient and caregiver able to verbalize teach back of signs/symptoms of infection and when to call or report concerns to home health or provider. patient and caregiver able to return demonstration of hand hygiene and infection control techniques. patient and caregiver independent with wound education. [facility] Visit Details Visit Type -CONTENT PRODUCTION SPECIALIST Routine Visi t Discipline -Physical Therapy Problems Problem Start Date Status Goals Interventions Assess and Instruct Home Visit Disciplines: Physical Therapy 10/05/2022 Active 3 goals linked to scheduled/documented interventions 5 goal interventions scheduled/documented in this visit Home Exercise Program Disciplines: Physical Therapy 10/05/2022 Active 1 goal linked to scheduled/documented intervention 1 goal intervention scheduled/documented in this visit Mobility Disciplines: Physical Therapy 10/05/2022 Active 1 goal linked to scheduled/documented intervention 1 goal intervention scheduled/documented in this visit Goals Goal Associated Problem Outcome Goal Met? Visit Notes Pain Assess and Instruct Home Visit No Medications Assess and Instruct Home Visit No Home Care Plan Assess and Instruct Home Visit No Home Exercise Program Home Exercise Program No Mobility Mobility No Interventions Intervention Associated Problem/Goal Status Variance Visit Notes Pain Management Problem:Assess and Instruct Home Visit Goal:Pain Completed Patient reports: no pain, states taking muscle relaxer only at night, Tylenol during the day Clinician taught: patient Clinician instructed on: reviewed pain management techniques to reduce symptoms if the occur. Patient/caregiver is able to teach back 100% of instruction. Instruct Medication Management Problem:Assess and Instruct Home Visit Goal:Medications Completed with variance Task already performed Falls Problem:Assess and Instruct Home Visit Goal:Home Care Plan Completed Clinician taught: patient Clinician instructed: proper footwear, assistive device usage, keep frequently used items in reach and emergency response system and/or keep phone on you, reviewed pet safety/universal fall precautions to reduce risk of falling. Patient/caregiver was able to demonstrate 100% via teachback Safety Problem:Assess and Instruct Home Visit Goal:Home Care Plan Completed Assessed patient vulnerability and home safety risks: fall risk Equipment reviewed SPC Patient at risk for harm or abuse no Family members involved in safety plan Plan for Next Visit Problem:Assess and Instruct Home Visit Goal:Home Care Plan Completed Follow up education for next visit: DC by PT Home Exercise Program Problem:Home Exercise Program Goal:Home Exercise Program Completed Patient reports: compliance with HEP daily and improved amb Clinician taught: patient Clinician instructed on: reviewed and upgraded HEP to continue strengthening/act tolerance/L knee ROM for improved overall functional mobility and continued progression towards LTGs. Education on increasing reps/frequencies to continue progressing towards LTGs. Patient/caregiver is able to teach back 100% of instruction. Instruct Mobility Problem:Mobility Goal:Mobility Completed Patient reports: no falls, use of cane when amb outside, no AD in home unless increased pain noted. Clinician taught: patient Clinician instructed on: CONTENT PRODUCTION SPECIALIST provides skilled instruct to ambulate with SPC outside, states no AD in home with CONTENT PRODUCTION SPECIALIST S progressing to OK - provides cues/education to improve overall gait sequencing/pattern to maximize safety and decrease fall risk in order to progress independence towards STGs/LTGs. Pt amb 150 ft x 1 step through gait pattern with improved heel strike and natural arm swing without AD. No LOB noted, no SOB. Improved safety during directional changes noted. Improved step symmetry. pt. tolerates STS from various surface heights in home, no difficulty completing at OK. Pt. challenged with amb over various surfaces in home including small step into side room with education on LE placement, ensuring inceased knee flexion/decreased circumduction for improved technique with good carryover. pt. completes home entry/exit with S, proper sequencing noted. Patient/caregiver is able to teach back 100% of instruction. [facility] Visit Details Visit Type -PT OASIS Irlanda montez Discipline -Physical Therapy Problems Problem Start Date Status Goals Interventions Assess and Instruct Home Visit Disciplines: Physical Therapy 10/05/2022 Resolved on 10/20/2022 3 goals linked to scheduled/documented interventions 4 goal interventions scheduled/documented in this visit Home Exercise Program Disciplines: Physical Therapy 10/05/2022 Resolved on 10/20/2022 1 goal linked to scheduled/documented intervention Mobility Disciplines: Physical Therapy 10/05/2022 Resolved on 10/20/2022 1 goal linked to scheduled/documented intervention Goals Goal Associated Problem Outcome Goal Met? Visit Notes Pain Assess and Instruct Home Visit Completed Yes Medications Assess and Instruct Home Visit Completed Yes Home Care Plan Assess and Instruct Home Visit Completed Yes Home Exercise Program Home Exercise Program Completed Yes Mobility Mobility Completed Yes Interventions Intervention Associated Problem/Goal Status Variance Visit Notes Instruct Medication Management Problem:Assess and Instruct Home Visit Goal:Medications Scheduled Falls Problem:Assess and Instruct Home Visit Goal:Home Care Plan Scheduled Safety Problem:Assess and Instruct Home Visit Goal:Home Care Plan Scheduled Plan for Next Visit Problem:Assess and Instruct Home Visit Goal:Home Care Plan Scheduled [facility] Visit Details Visit Type -CONTENT PRODUCTION SPECIALIST Routine Visi t Discipline -Physical Therapy Problems Problem Start Date Status Goals Interventions Assess and Instruct Home Visit Disciplines: Physical Therapy 10/05/2022 Active 3 goals linked to scheduled/documented interventions 5 goal interventions scheduled/documented in this visit Home Exercise Program Disciplines: Physical Therapy 10/05/2022 Active 1 goal linked to scheduled/documented intervention 1 goal intervention scheduled/documented in this visit Mobility Disciplines: Physical Therapy 10/05/2022 Active 1 goal linked to scheduled/documented intervention 1 goal intervention scheduled/documented in this visit Goals Goal Associated Problem Outcome Goal Met? Visit Notes Pain Assess and Instruct Home Visit No Medications Assess and Instruct Home Visit No Home Care Plan Assess and Instruct Home Visit No Home Exercise Program Home Exercise Program No Mobility Mobility No Interventions Intervention Associated Problem/Goal Status Variance Visit Notes Pain Management Problem:Assess and Instruct Home Visit Goal:Pain Completed Patient reports: having increased pain over the weekend, states 2/10 pain currently Clinician taught: patient Clinician instructed on: reviewed pain management and importance of completing HEP daily, amb, repositioning, icing/elevation to reduce symptoms. pt. states depsite pain, continues to complete HEP. Patient/caregiver is able to teach back 100% of instruction. Instruct Medication Management Problem:Assess and Instruct Home Visit Goal:Medications Completed with variance Task already performed Falls Problem:Assess and Instruct Home Visit Goal:Home Care Plan Completed Clinician taught: patient Clinician instructed: proper footwear, keep frequently used items in reach and emergency response system and/or keep phone on you and reviewed universal fall precautions to reduce risk of falling. Patient/caregiver was able to demonstrate 100% via teachback Safety Problem:Assess and Instruct Home Visit Goal:Home Care Plan Completed Assessed patient vulnerability and home safety risks: fall risk Equipment reviewed SPC Patient at risk for harm or abuse no Family members involved in safety plan Plan for Next Visit Problem:Assess and Instruct Home Visit Goal:Home Care Plan Completed Follow up education for next visit: continue to progress with activities as tolerated, safety precautions, progress amb sequencing and increased knee ROM Skilled intervention at next visit: CONTENT PRODUCTION SPECIALIST will provide skilled education on proper technique and appropriate progression of ther ex/act/amb as tolerated to continue to progress towards LTGs. Home Exercise Program Problem:Home Exercise Program Goal:Home Exercise Program Completed Patient reports: understanding and compliance with completing HEP Clinician taught: patient Clinician instructed on: CONTENT PRODUCTION SPECIALIST provided education to pt. on appropriate progression of ther ex/act/amb to facilitate increased strengthening/act tolerance for improved ability to complete functional transfers and progress towards LTGs. Progress ther ex/act/amb for increased ROM and strengthening. Patient/caregiver is able to teach back 100% of instruction Instruct Mobility Problem:Mobility Goal:Mobility Completed Patient reports: no falls, use of cane when amb outside, no AD in home unless increased pain noted. Clinician taught: patient Clinician instructed on: CONTENT PRODUCTION SPECIALIST provides skilled instruct to ambulate with SPC outside, states no AD in home with CONTENT PRODUCTION SPECIALIST S during - provides cues/education to improve overall gait sequencing/pattern to maximize safety and decrease fall risk in order to progress independence towards STGs/LTGs. Pt amb 150 ft x 1 step through gait pattern with improved heel strike and natural arm swing without AD at SBA/S. No LOB noted, no SOB. Improved safety during directional changes noted. Improved step symmetry. pt. tolerates STS from various surface heights in home, no difficulty completing at OK. Pt. challenged with amb over various surfaces in home including small step into side room with education on LE placement, ensuring inceased knee flexion/decreased circumduction for improved technique with good carryover. Patient/caregiver is able to teach back 100% of instruction. [facility]* Narratives [facility] HomeHealth Clinical [facility] carlos Patient s goals for HomeCare: to be pain free and able to walk independently What skill(s) will be provided by your discipline: home safety, cp assessment, medication education, signs and symptoms to report and wound assessment Rehab Potential: good HISTORY OF PRESENT ILLNESS LEADING UP TO HOME CARE ADMISSION patient was discharged from outpatient bed in [place] on 10/03 for total right knee replacement surgery due to history of osteoarthritis Side/site of body affected (dominant hand if neuro diagnosis): Right knee Comorbidities with potential to affect the Plan of Care: HTN Additional Disciplines requested: na Disciplines referred and declined by patient/caregiver: no Prior functional level: independent Current functional level: assist with all adls and ambulation Fall Risk: MAHC-10 score 6, 4-10 Patient IS at risk for falls (a score of 6 or greater is a predictor of future falls) Medication Issues: none Wound summary: surgical incision to right knee covered with non removable dressing with no drainage noted and slight swelling to right knee. HOMEBOUND STATUS Criteria 1: Assistive Device(s): Walker Needs assistance of at least 1 to leave home Criteria 2: Patient confined to home due to unsteady gait/poor balance [facility]* Actions Discipline requested: Physic al Therapy to include: gait training, transfer training, bed mobility training, therapeutic exercises, establish home exercise program, teach edema management techniques and assess/instruct in techniques to mitigate/alleviate pain Upper And Bottom Lacer Hand Goals: Patient remains safe at home and Maximize mobility Rehab Potential: good with stated goals Discharge Plans: When goals are met. Homebound Status Criteria 1: Assistive Device(s): Walker Needs assistance of at least 1 to leave home Criteria 2: Patient confined to home due to unsteady gait/poor balance, uncontrolled/unresolved pain related to s/p L TKR and poor endurance related to L knee pain and weakness Type of Home: 1-story house/ trailer, number of outside stairs: 2, walk-in shower Narratives 72 yo female referred to therapy services following L TKR on 10/03/[address] Petit. Pt states she has been doing well since discharge. PMHX: HTN, HLD, anxiety/depression disorder, hx of unspecified fractures, tinnitus, GERD, hx R RTC repair PLOF: Pt states she was previously independent with all functional mobility without an AD. Current level/needs: therapeutic exercises for LLE strengthening/ROM, therapeutic activities, gait training, stair training, transfer training, balance re- education, and falls risk reduction. OWNS (DME): FWW, SPC, shower chair FALLS: none reported in the past year APPTS: 10/21/[address] Petit PREFERS: late mornings PRECAUTIONS: WBAT LLE, falls risk GOALS: I want full mobility and to be pain free . PT eval complete, PT 2x1, 3x2 Skilled interventions at [facility] included: Pt educated on icing 3-4x per day for 1 hour, elevation with surgical limb at or above the level of the heart, avoidance of placing any objects behind affected knee, need for mobilization every hour, straighten/bend knee every hour, performing HEP per protocol 2x per day. Pt educated on POC with pt agreeing/consenting, all questions answered. Pt provided with contact information for future questions or concerns. [facility] Actions CP assess, VS WNL. Dressing clean, dry, intact. Narratives Homebound Status Criteria 1: Assistive Device(s): Walker Needs assistance of at least 1 to leave home Criteria 2: Patient confined to home due to unsteady gait/poor balance Type of Home: 1-story house/ trailer [facility] Patient s goals for HomeCare: to be pain free and able to walk independently What skill(s) will be provided by your discipline: home safety, cp assessment, medication education, signs and symptoms to report and wound assessment Rehab Potential: good HISTORY OF PRESENT ILLNESS LEADING UP TO HOME CARE ADMISSION patient was discharged from outpatient bed in [place] on 10/03 for total right knee replacement surgery due to history of osteoarthritis Side/site of body affected (dominant hand if neuro diagnosis): Right knee Comorbidities with potential to affect the Plan of Care: HTN Additional Disciplines requested: na Disciplines referred and declined by patient/caregiver: no Prior functional level: independent Current functional level: assist with all adls and ambulation Fall Risk: MAHC-10 score 6, 4-10 Patient IS at risk for falls (a score of 6 or greater is a predictor of future falls) Medication Issues: none Wound summary: surgical incision to right knee covered with non removable dressing with no drainage noted and slight swelling to right knee. HOMEBOUND STATUS Criteria 1: Assistive Device(s): Walker Needs assistance of at least 1 to leave home Criteria 2: Patient confined to home due to unsteady gait/poor balance [facility]* Actions Homebound Status Criteria 1: Assistive Device(s): Walker Needs assistance of at least 1 to leave home Criteria 2: Patient confined to home due to unsteady gait/poor balance Type of Home: can live on one level Pt to be discharged when all goals/max potential has been met; as determined by LPT [facility]* Actions pt ambulates to answer door via straight cane. pt a&ox4. pt pleasant and attentive throughout visit. pt states everything has been going good and denies pain on today. vs obtained and mild edema noted to LLE. non removable aqucel dressing remains intact and no visible drainage noted to bandage. pt states she takes oxy througout the day and her flexeril. pt educated on continuing to take pain meds to help minimize pain and ice as needed. pt verbalized understanding and states she will. post follow up visit with Dr. Petit on 10-21-22 pt reminded to use ice, rest, and elevate and to use asssitive devices for ambulation and transfers. [facility]* Actions Homebound Status Criteria 1: Assistive Device(s): spc Needs assistance of at least 1 to leave home Criteria 2: Patient confined to home due to unsteady gait/poor balance , L TKA Type of Home: can live on one level Narratives Pt to be discharged when all goals/max potential has been met; as determined by LPT [facility]* Actions Homebound Status Criteria 1: Assistive Device(s): cane prn Needs assistance of at least 1 to leave home Criteria 2: Patient confined to home due to unsteady gait/poor balance , L TKA Type of Home: can live on one level Narratives Pt to be discharged when all goals/max potential has been met; as determined by LPT [facility]* Actions Homebound Status Criteria 1: Assistive Device(s): Walker Needs assistance of at least 1 to leave home Criteria 2: Patient confined to home due to unsteady gait/poor balance Type of Home: can live on one level Narratives Pt to be discharged when all goals/max potential has been met; as determined by LPT. Pt. is going to OPP[facility] at [facility] in [place] on next Monday. [facility]* Actions Homebound Status Criteria 1: Assistive Device(s): cane prn Needs assistance of at least 1 to leave home Criteria 2: Patient confined to home due to unsteady gait/poor balance , L TKA Type of Home: can live on one level Narratives Pt to be discharged when all goals/max potential has been met; as determined by LPT [facility] Consultation (Routine) - Authorized Specialty Diagnoses / Procedures Referred By Contac t Referred To Contact Primary Care Diagnoses Benign hypertension Mixed hyperlipidemia Acquired hypothyroidism Mixed anxiety depressive disorder Procedures Follow Up In Primary Care - Established Prakash Weller MD [address] [place] [address] Referral ID Status Reason Start Date Expiration Date V isits Requested Visits Authorized [id number] Authorized 11/28/2022 05/27/2023 1 1 [facility] Work Phone: reason for visit Narrative* Auth/Cert Specialty Diagnoses / Procedures Referred By Alison fritz Referred To Contact Referral ID Status Reason Start Date Expiration Date Visits Re quested Visits Authorized [id number] 1 1 [facility] Assessments Diagnosis S/P rotator cuff repair righ t - Primary Diagnosis S/P rotator cuff repair righ t - Primary Diagnosis Tinnitus of both ears Unspecified tinnitus Sensory hearing loss, bilateral Summary Purpose Family History No Family History Records Found Mother Name Dates Details Family history of hypertensi on(V17.49, Z82.49) Status:Active Family history of Primary ma lignant neoplasm of brain(191.9, C71.9) Status:Active Family history of Primary ma lignant neoplasm of lung(162.9, C34.90) Status:Active Father Name Dates Details Family history of hypertensi on(V17.49, Z82.49) Status:Active Family history of colonic po lyps(V18.51, Z83.71) Status:Active Family history of malignant neoplasm of prostate(V16.42, Z80.42) Status:Active Sister Name Dates Details Family history of depression (V17.0, Z81.8) Status:Active Family history of hypothyroi dism(V18.19, Z83.49) Status:Active Mother Name Dates Details Family history of hypertensi on(V17.49, Z82.49) Status:Active Family history of Primary ma lignant neoplasm of brain(191.9, C71.9) Status:Active Family history of Primary ma lignant neoplasm of lung(162.9, C34.90) Status:Active Father Name Dates Details Family history of hypertensi on(V17.49, Z82.49) Status:Active Family history of colonic po lyps(V18.51, Z83.71) Status:Active Family history of malignant neoplasm of prostate(V16.42, Z80.42) Status:Active Sister Name Dates Details Family history of depression (V17.0, Z81.8) Status:Active Family history of hypothyroi dism(V18.19, Z83.49) Status:Active Unknown Family Member Name Dates Details Family history of hypertensi on: Mother, Father(V17.49, Z82.49) Status:Active Primary malignant neoplasm o f brain: Mother Status:Active Primary malignant neoplasm o f lung: Mother Status:Active Family history of colonic po lyps: Father(V18.51, Z83.71) Status:Active Family history of malignant neoplasm of prostate: Father(V16.42, Z80.42) Status:Active Family history of depression : Sister(V17.0, Z81.8) Status:Active Family history of hypothyroi dism: Sister(V18.19, Z83.49) Status:Active Unknown Family Member Name Dates Details Family history of hypertensi on: Mother, Father(V17.49, Z82.49) Status:Active Primary malignant neoplasm o f brain: Mother Status:Active Primary malignant neoplasm o f lung: Mother Status:Active Family history of colonic po lyps: Father(V18.51, Z83.71) Status:Active Family history of malignant neoplasm of prostate: Father(V16.42, Z80.42) Status:Active Family history of depression : Sister(V17.0, Z81.8) Status:Active Family history of hypothyroi dism: Sister(V18.19, Z83.49) Status:Active Unknown Family Member Name Dates Details Family history of hypertensi on: Mother, Father(V17.49, Z82.49) Status:Active Primary malignant neoplasm o f brain: Mother Status:Active Primary malignant neoplasm o f lung: Mother Status:Active Family history of colonic po lyps: Father(V18.51, Z83.71) Status:Active Family history of malignant neoplasm of prostate: Father(V16.42, Z80.42) Status:Active Family history of depression : Sister(V17.0, Z81.8) Status:Active Family history of hypothyroi dism: Sister(V18.19, Z83.49) Status:Active Unknown Family Member Name Dates Details Family history of hypothyroi dism: Sister(V18.19, Z83.49) Status:Active Family history of depression : Sister(V17.0, Z81.8) Status:Active Family history of malignant neoplasm of prostate: Father(V16.42, Z80.42) Status:Active Family history of colonic po lyps: Father(V18.51, Z83.71) Status:Active Primary malignant neoplasm o f lung: Mother Status:Active Primary malignant neoplasm o f brain: Mother Status:Active Family history of hypertensi on: Mother, Father(V17.49, Z82.49) Status:Active Unknown Family Member Name Dates Details Family history of hypertensi on: Mother, Father(V17.49, Z82.49) Status:Active Primary malignant neoplasm o f brain: Mother Status:Active Primary malignant neoplasm o f lung: Mother Status:Active Family history of colonic po lyps: Father(V18.51, Z83.71) Status:Active Family history of malignant neoplasm of prostate: Father(V16.42, Z80.42) Status:Active Family history of depression : Sister(V17.0, Z81.8) Status:Active Family history of hypothyroi dism: Sister(V18.19, Z83.49) Status:Active Unknown Family Member Name Dates Details Family history of hypertensi on: Mother, Father(V17.49, Z82.49) Status:Active Primary malignant neoplasm o f brain: Mother Status:Active Primary malignant neoplasm o f lung: Mother Status:Active Family history of colonic po lyps: Father(V18.51, Z83.71) Status:Active Family history of malignant neoplasm of prostate: Father(V16.42, Z80.42) Status:Active Family history of depression : Sister(V17.0, Z81.8) Status:Active Family history of hypothyroi dism: Sister(V18.19, Z83.49) Status:Active Unknown Family Member Name Dates Details Family history of hypertensi on: Mother, Father(V17.49, Z82.49) Status:Active Primary malignant neoplasm o f brain: Mother Status:Active Primary malignant neoplasm o f lung: Mother Status:Active Family history of colonic po lyps: Father(V18.51, Z83.71) Status:Active Family history of malignant neoplasm of prostate: Father(V16.42, Z80.42) Status:Active Family history of depression : Sister(V17.0, Z81.8) Status:Active Family history of hypothyroi dism: Sister(V18.19, Z83.49) Status:Active Unknown Family Member Name Dates Details Family history of hypertensi on: Mother, Father(V17.49, Z82.49) Status:Active Primary malignant neoplasm o f brain: Mother Status:Active Primary malignant neoplasm o f lung: Mother Status:Active Family history of colonic po lyps: Father(V18.51, Z83.71) Status:Active Family history of malignant neoplasm of prostate: Father(V16.42, Z80.42) Status:Active Family history of depression : Sister(V17.0, Z81.8) Status:Active Family history of hypothyroi dism: Sister(V18.19, Z83.49) Status:Active Advance Directives No Advanced Directives Records FoundDocuments on File Type Date Recorded Patient Financial Reporting Accountant Expl anation Advance Directives and Livin g Will 03/02/2020 9:57 AM Documents on File Type Date Recorded Patient Financial Reporting Accountant Expl anation Advance Directives and Livin g Will 03/02/2020 9:57 AM Documents on File Type Date Recorded Patient Financial Reporting Accountant Expl anation Power of Wood Furniture Assembler Latest Code Status on File Code Status Date Activated Date Inactivated Comments Full Code 10/04/2022 4:36 PM Code Statu s reflects patient's informed choice. Code Status History Code Status Date Activated Date Inactivated Comments Full Code 10/03/2022 12:21 PM 10/03/2022 11:25 PM Documents on File Type Date Recorded Patient Financial Reporting Accountant Expl anation Power of Wood Furniture Assembler Latest Code Status on File Code Status Date Activated Date Inactivated Comments Full Code 10/04/2022 4:36 PM Code Statu s reflects patient's informed choice. Code Status History Code Status Date Activated Date Inactivated Comments Full Code 10/03/2022 12:21 PM 10/03/2022 11:25 PM Procedure Findings Note [facility] [address], [place] [address]MPPFJUNIE PABON [facility] [id number] 2DATE 06/09/2017OPERATIVE REPORT / PROCEDURE NOTECORRECTED REPORTSURGEON JOSÉ MIGUEL PETIT, PATSYREOPERATIVE DIAGNOSISLeft 3rd and 4th finger trigger digits.POSTOPERATIVE DIAGNOSISLeft 3rd and 4th finger trigger digits.PROCEDURELeft 3rd and 4th finger trigger releases.ANESTHESIALocal anesthetic with sedation.COMPLICATIONSNo intraoperative complications.ESTIMATED BLOOD LOSS2 mL.SPECIMENSNone.HISTORYSharron is a patient with significant left 3rd and 4th finger trigger digitsunresponsive to conservative measures. Presents for surgical releases. Shewas explained all risks and complications of surgery including, but notlimited to, the risks of infection, bleeding, neurologic or vascular injury,possibility of deep venous thrombosis, pulmonary embolism, myocardialinfarction, stroke, or even with surgery. Explained the possibilitiesof continued pain, stiffness, (more content not included)... Note [facility] [address], [place] [address]EMOMJUNIE PABON Kristy [facility] [id number] 2DATE 09/29/2017OPERATIVE REPORT / PROCEDURE NOTESURGEON JOSÉ MIGUEL PETIT, CITIZENS BAPTISTREOPERATIVE DIAGNOSES1. Right shoulder acromioclavicular joint arthrosis.2. Right shoulder impingement.3. Right shoulder rotator cuff tear.POSTOPERATIVE DIAGNOSES1. Right shoulder acromioclavicular joint arthrosis.2. Right shoulder impingement.3. Right shoulder rotator cuff tear.4. Type 2 superior labrum anterior and posterior lesion, right shoulder.PROCEDURE1. Right shoulder arthroscopic SLAP lesion repair, type 2.2. Subacromial decompression.3. Arthroscopic lateral clavicle excision.4. Mini-open rotator cuff reconstruction, right shoulder.ANESTHESIAGeneral anesthetic.COMPLICATIONSNo intraoperative complications.ESTIMATED BLOOD LOSS5 cc.SPECIMENSNone.COMPLICATIONSNone.HISTORYSharron is a patient with a significant history of severe right shoulder pain,unresponsive to conservative (more content not included)... Reason for Referral Status Reason Specialty Diagnoses / Procedures Referred By Contact Referred To Contact Authorized Radiology Diagnoses Tinnitus of both ears Sensory hearing loss, bilateral Procedures MR Brain With and Without Contrast and MRV Brain Without Contrast MR Brain With And Without Contrast Bandar Bernardo MD [address] [place] [address] Status Reason Specialty Diagnoses / Procedures Referred By Contact Referred To Contact Authorized Radiology Diagnoses Tinnitus of both ears Sensory hearing loss, bilateral Procedures MRV Brain Without Contrast Bandar Bernardo MD [address] [place] [address] Specialty Diagnoses / Procedures Referred By Contac t Referred To Contact Radiology Diagnoses Primary osteoarthritis of left knee Procedures MR Knee Left Without Contrast Sarah Ricketts, PUMP ERECTOR HELPER [address] [place] [id number] Referral ID Status Reason Start Date Expiration Date V isits Requested Visits Authorized [id number] New Request 07/15/2022 07/15/2023 1 1 Specialty Diagnoses / Procedures Referred By Contac t Referred To Contact Rehabilitation Diagnoses Primary osteoarthritis of left knee Sarah Ricketts CNP [address] [place] [address] [facility] [address] [place] [address] Referral ID Status Reason Start Date Expiration Date Visits Requested Visits Authorized [id number] Pending Review Specialty Services Required/Pat ient's Best Interest 08/11/2022 08/11/2023 1 1 Specialty Diagnoses / Procedures Referred By Contac t Referred To Contact Rehabilitation Diagnoses Status post total left knee replacement José Miguel Petit MD [address] [place] [address] [facility] [place] [address] [place] [address] Referral ID Status Reason Start Date Expiration Date V isits Requested Visits Authorized [id number] Pending Review 10/10/2022 10/10/2023 1 1 Specialty Diagnoses / Procedures Referred By Contac t Referred To Contact Gastroenterology Diagnoses Encounter for screening for malignant neoplasm of colon Procedures Colonoscopy Screening GA COLONOSCOPY FLX DX W/COLLJ SPEC WHEN PFRMD GA COLON CA SCRN NOT HI RSK IND GA COLORECTAL SCRN; HI RISK IND GA COLONOSCOPY W/BIOPSY SINGLE/MULTIPLE GA COLSC FLX W/RMVL OF TUMOR POLYP LESION SNARE TQ GA COLSC FLX W/REMOVAL LESION BY HOT BX FORCEPS [id number] [address] [place] [address] [phone] Referral ID Status Reason Start Date Expiration Date V isits Requested Visits Authorized [id number] Pending Review 05/19/2023 05/18/2024 1 1 Chief Complaint 6 MO HTH HTN HL DEPRESSION ANX CK6 MO FU , HTN,HL, DEPRESSION, ANXIETY. REV LABS MCW..6 MO FU6 MO F/U. [facility]. Additional Source Comments INFORMATION SOURCE (unrecogn ized section and content) DATE CREATED AUTHOR AUTHOR'S ORGANIZ ATION 12/06/2018 [facility] DATE CREATED AUTHOR AUTHOR'S ORGANIZ ATION 06/17/2021 [facility] DATE CREATED AUTHOR AUTHOR'S ORGANIZ ATION 05/27/2022 [facility] DATE CREATED AUTHOR AUTHOR'S ORGANIZ ATION 10/22/2022 [facility] DATE CREATED AUTHOR AUTHOR'S ORGANIZ ATION [facility]20[facility] CREATED AUTHOR AUTHOR'S ORGANIZ ATION 11/23/2022 [facility] DATE CREATED AUTHOR AUTHOR'S ORGANIZ ATION 12/20/2022 [facility] DATE CREATED AUTHOR AUTHOR'S ORGANIZ ATION 04/13/2023 [facility] DATE CREATED AUTHOR AUTHOR'S ORGANIZ ATION 06/05/2023 [facility] DATE CREATED AUTHOR AUTHOR'S ORGANIZ ATION 06/07/2023 [facility] DATE CREATED AUTHOR AUTHOR'S ORGANIZ ATION 06/30/2023 [facility] Reason for Visit (unrecogniz ed section and content) Reason Comments Pain Reason Comments Follow-up Reason Comments Results MRI review Reason Comments Physical Therapy Specialty Diagnoses / Procedures Referred By Contac t Referred To Contact Rehabilitation Diagnoses Primary osteoarthritis of left knee Sarah Ricketts, PUMP ERECTOR HELPER [address] [place] [address] [facility] [place] [address] [address] [place] [address] Referral ID Status Reason Start Date Expiration Date Visits Requested Visits Authorized [id number] Authorized Specialty Services Required/Pat ient's Best Interest 08/11/2022 08/11/2023 13 199 Referral ID Status Reason Start Date Expiration Date Visits Requested Visits Authorized [id number] Pending Review Specialty Services Required/Pat ient's Best Interest 08/11/2022 08/11/2023 13 199 Reason Comments Initial Visit (Intake) Pt states no card iac concerns today. Specialty Diagnoses / Procedures Referred By Alison fritz Referred To Contact Cardiology Diagnoses Primary osteoarthritis of left knee José Miguel Petit MD [address] [place] [address] [address] [facility] [place] [address] Referral ID Status Reason Start Date Expiration Date V isits Requested Visits Authorized [id number] Closed Specialty Services Required/Madeline ent's Best Interest 09/09/2022 09/09/2023 1 1 Reason Comments Pre-op Exam Left knee Specialty Diagnoses / Procedures Referred By Alison fritz Referred To Contact Rehabilitation Diagnoses Status post total left knee replacement José Miguel Petit MD [address] [place] [id number] [address] [address] Referral ID Status Reason Start Date Expiration Date V isits Requested Visits Authorized [id number] Pending Review 10/10/2022 10/10/2023 13 199 Referral ID Status Reason Start Date Expiration Date V isits Requested Visits Authorized [id number] Authorized 10/10/2022 10/10/2023 13 199 Reason Comments Follow-up Reason Comments Medicare Annual Wellness Visit Elena fritz 6 mo fu rev labs Specialty Diagnoses / Procedures Referred By Alison fritz Referred To Contact Diagnoses Encounter for screening for malignant neoplasm of colon Procedures GA COLONOSCOPY FLX DX W/COLLJ SPEC WHEN PFRMD GA COLONOSCOPY W/BIOPSY SINGLE/MULTIPLE GA COLSC FLX W/RMVL OF TUMOR POLYP LESION SNARE TQ GA COLSC FLX W/REMOVAL LESION BY HOT BX FORCEPS [id number] [address] [place] [address] [phone] Referral ID Status Reason Start Date Expiration Date Visits Re quested Visits Authorized [id number] 1 1 Care Teams (unrecognized sec tion and content) Aircraft Armorer Relationship Specialty Start Date End Date Stencel, Prakash Brody, MD [address] [place] [address] PCP - General Family Medicine 05/15/17 Aircraft Armorer Relationship Specialty Start Date End Date Prakash Weller MD [address] [place], [place] [id number] PCP - General Family Medicine 05/15/17 Aircraft Armorer Relationship Specialty Start Date End Date Prakash Weller MD [address] [place] [address] PCP - General Family Medicine 05/15/17 Aircraft Armorer Relationship Specialty Start Date End Date Prakash Weller MD [address] [place] [address] PCP - General Family Medicine 05/15/17 Aircraft Armorer Relationship Specialty Start Date End Date Prakash Weller MD [address] [place], [place] [id number] PCP - General Family Medicine 05/15/17 Aircraft Armorer Relationship Specialty Start Date End Date Prakash Weller MD [address] [place] [address] PCP - General Family Medicine 05/15/17 Aircraft Armorer Relationship Specialty Start Date End Date Prakash Weller MD [address] [place], [place] [id number] PCP - General Family Medicine 05/15/17 Aircraft Armorer Relationship Specialty Start Date End Date Prakash Weller MD [address] [place], [place] [id number] PCP - General Family Medicine 05/15/17 Aircraft Armorer Relationship Specialty Start Date End Date Prakash Weller MD [address] [place], [place] [id number] PCP - General Family Medicine 05/15/17 Aircraft Armorer Relationship Specialty Start Date End Date Prakash Weller MD [address] [place], [place] [id number] PCP - General Family Medicine 05/15/17 Aircraft Armorer Relationship Specialty Start Date End Date Prakash Weller MD [address] [place], [place] [id number] PCP - General Family Medicine 05/15/17 Aircraft Armorer Relationship Specialty Start Date End Date Prakash Weller MD [address] [place] [address] PCP - General Family Medicine 05/15/17 Aircraft Armorer Relationship Specialty Start Date End Date Prakash Weller MD [address] [place], [place] [id number] PCP - General Family Medicine 05/15/17 Aircraft Armorer Relationship Specialty Start Date End Date Prakash Weller MD [address] [place] [address] PCP - General Family Medicine 05/15/17 Aircraft Armorer Relationship Specialty Start Date End Date Prakash Weller MD [address] [place], [place] [id number] PCP - General Family Medicine 05/15/17 Aircraft Armorer Relationship Specialty Start Date End Date Prakash Weller MD [address] [place], [place] [id number] PCP - General Family Medicine 05/15/17 Aircraft Armorer Relationship Specialty Start Date End Date Prakash Weller MD [address] [place], [place] [id number] PCP - General Family Medicine 05/15/17 Aircraft Armorer Relationship Specialty Start Date End Date Prakash Weller MD [address] [place], [place] [id number] PCP - General Family Medicine 05/15/17 Aircraft Armorer Relationship Specialty Start Date End Date Prakash Weller MD [address] [place], [place] [id number] PCP - General Family Medicine 05/15/17 Aircraft Armorer Relationship Specialty Start Date End Date Prakash Weller MD [address] [place], [place] [id number] PCP - General Family Medicine 05/15/17 Aircraft Armorer Relationship Specialty Start Date End Date Prakash Weller MD [address] [place], [place] [id number] PCP - General Family Medicine 05/15/17 Aircraft Armorer Relationship Specialty Start Date End Date Prakash Weller MD [address] [place], [place] [id number] PCP - General Family Medicine 05/15/17 Aircraft Armorer Relationship Specialty Start Date End Date Prakash Weller MD [address] [place], [place] [id number] PCP - General 12/25/18 Prakash Weller MD [address] [place] [address] PCP - [facility] Attributed Provider 04/24/21 Aircraft Armorer Relationship Specialty Start Date End Date Stencel, Prakash D, MD [address] [place] [id number] PCP - General 12/25/18 Prakash Weller MD [address] [place] [address] [facility] Attributed Provider 04/24/21 Aircraft Armorer Relationship Specialty Start Date End Date Prakash Weller MD [address] [place] [address] PCP - General 12/25/18 Prakash Weller MD [address] [place] [address] [facility] Attributed Provider 04/24/21 FOR RECORDS PERTAINING TO PATIENTS WHO ARE OR HAVE BEEN ENROLLED IN A CHEMICAL DEPENDENCY/SUBSTANCEABUSE PROGRAM, SOME INFORMATION MAY BE OMITTED. This clinical summary was aggregated from multiple sources. Caution should be exercised in using it in the provision of clinical care. This summary normalizes information from multiple sources, and as a consequence, information in this document may materially change the coding, format and clinical context of patient data. In addition, data may be omitted in some cases. CLINICAL DECISIONS SHOULD BE BASED ON THE PRIMARY CLINICAL RECORDS. [facility] [employer] provides no warranty or guarantee of the accuracy or completeness of information in this document.
== END | disposition home or self-care (01) ==
LOC: OPBI 13:11
PROVIDERS: PCP Family Medicine; Referring Provider Obstetrics & Gynecology; Visit Provider Obstetrics & Gynecology
DX: Z12.31 Encounter for screening mammogram for malignant neoplasm of breast (principal)
CPT/HCPCS: 77063; 77067

== ENCOUNTER → 2024-05-28 | Outpatient (CLI) | payer MEDICARE, OTHER, SELFPAY ==
--- NOTE | 2024-05-28 08:16 | BI_ITS ---
PROCEDURE: SCRN MAMM (CAD)W/JEFFERY BILAT REASON FOR EXAM: F, Age 73 y/o, annual screening mammogram TECHNIQUE: Bilateral screening digital breast tomosynthesis with 2D and 3D images. Computer aided detection. COMPARISON: 07/07/2023, 07/04/2022. FINDINGS: There are scattered areas of fibroglandular density. No suspicious masses, architectural distortion, or suspicious calcifications in either breast. . BI/SCRN MAMM (CAD)W/JEFFERY BILAT IMPRESSION: There is no evidence of malignancy in either breast. Follow-up code: Routine Follow-up The patient will be notified of the results by letter. Reading Location: [id number]
== END | disposition home or self-care (01) ==
PROVIDERS: PCP Family Medicine; Referring Provider Plastic Surgery; Visit Provider Plastic Surgery
DX: Z12.31 Encounter for screening mammogram for malignant neoplasm of breast (principal)
CPT/HCPCS: 77063; 77067

== ENCOUNTER 2024-06-07 05:57 | Day surgery (SDC) | payer MEDICARE, OTHER, SELFPAY ==
--- NOTE | 2024-05-24 14:48 | PAT.ANE_ITS ---
Pre-Assessment Diagnosis/Proposed Procedure Planned Operative Procedure(s): BILAT BREAST REDUCTION Anesthesia History Anesthesia History - mop handle assembler: Anesthesia History - mop handle assembler Hx Hospitalization No 05/24/24 08:54 Any Problems With Anesthesia Yes: N,V AND SLOW TO AWAKEN 05/24/24 08:54 Cholinesterase deficiency No 05/24/24 08:54 You/Your Family Experience No 05/24/24 08:54 fever (hyperthermia) with Relationship Recent Exposure to Contagious Disease Does patient have nerve No 05/24/24 08:54 stimulator Patient instructed to have device shut off --Does patient have Pacemaker or ICD? When Was Last Pacemaker Check QUESTION #4 FULL TEXT: You/Your Family Experience fever (hyperthermia) with Anesthesia Last Oral Intake Last Oral intake: Last Oral Intake NPO since Meds taken in AM with sips of water? Meds patient instructed to take am of surgery PONV PONV - mop handle assembler: PONV - mop handle assembler Female Yes 05/24/24 08:54 HX of Motion Sickness Yes 05/24/24 08:54 HX of N/V After Surgery Yes 05/24/24 08:54 Non-Smoker Yes 05/24/24 08:54 Duration of Surgery greater Yes 05/24/24 08:54 than 60 minutes Number of Risk Factors 5 05/24/24 08:54 PONV Score Severe Risk 05/24/24 08:54 Height & Weight Height & Weight: Anesthesia: Height & Weight Height 5 ft 6 in 05/07/24 14:50 Respiratory Assessment Respiratory Assessment - mop handle assembler: Respiratory Tract Infection Hx - mop handle assembler Hx Respiratory Tract Infection No 05/24/24 08:54 STOP Sleep Apnea STOP Sleep Apnea - mop handle assembler: STOP Sleep Apnea - mop handle assembler Hx Hypertension Yes: CONTROLLED WITH MED 05/24/24 08:54 Hx Sleep Apnea No 05/24/24 08:54 CPAP BIPAP Do you snore loudly (louder No 05/24/24 08:54 than talking or can be heard Do you often feel tired/ No 05/24/24 08:54 fatigued/ sleepy during daytime? Has anyone observed you stop No 05/24/24 08:54 breathing during sleep? STOP Results Negative 05/24/24 08:54 QUESTION #5 FULL TEXT : Do you snore loudly (louder than talking or can be heard through closed doors)? Tobacco Use History Tobacco Use History - mop handle assembler: Tobacco Use History - mop handle assembler Tobacco Use Smoking Status Never smoker 05/24/24 08:54 Hx Tobacco Use No 05/24/24 08:54 Years Smoking Packs Smoked per Day Smoking Cessation Date was within the last 15 years Hx Smoking Cessation Date Hx Smoking Cessation Counseling Hematologic Medial History Hematologic Hx - mop handle assembler: Hematologic Medical Hx - inspection engineer Hx of Blood Transfusion No 05/24/24 08:54 Hx of Transfusion in last 3 No 05/24/24 08:54 Months Date of Last Transfusion (if within last 3 months) Ever experience any problems No 05/24/24 08:54 with transfusion(s)? Specify any problems Hx of Preganancy in last 3 No 05/24/24 08:54 Months Nurse Filling Out Transfusion DSCHRIBER 05/24/24 08:54 & Questions: Date: 05/24/24 05/24/24 08:54 Time: 08:56 05/24/24 08:54 Patient unable to answer at this time (ie. confused, unrespo /Reproduction History /Reproductive History - mop handle assembler: /Reproductive Hx- mop handle assembler Hx Now No 05/24/24 08:54 Gestational Age (in weeks): EDC: Hx Hx Para Hx Section SAB No 05/24/24 08:54 PFSH Medical History (Updated 05/24/24 @ 09:[address] [facility]) Wears hearing aid Post-menopausal Cancer Depression Anxiety Non-smoker History of stress test History of irregular heartbeat Hx of fracture of wrist History of trigger finger Thyroid disease GERD (gastroesophageal reflux disease) Abnormal mammogram of left breast Genetic testing of female Hypertension Anxiety and depression Home Medications ?Medication ?Instructions ?Recorded ?Last Taken ?Type ascorbate calcium (vitamin C) 500 500 mg PO DAILY 08/12 Unknown History mg tablet cholecalciferol (vitamin D3) 50 50 mcg PO DAILY Unknown History mcg (2,000 unit) capsule cyanocobalamin (vitamin B-12) 1,000 mcg PO DAILY 01/25 Unknown History 1,000 mcg capsule escitalopram oxalate 10 mg tablet 10 mg PO DAILY 01/25 Unknown History (Lexapro) losartan 100 1 tab PO DAILY 01/25/21 Unkn own History mg-hydrochlorothiazide 25 mg tablet multivitamin 1 tab PO DAILY 07/14/21 Unkn own History calcium carbonate 500 mg PO DAILY 07/04/22 Unk nown History epinephrine 0.3 mg/0.3 mL 0.3 mg IM ONCE 07/04/22 Unkn own History injection, auto-injector (EpiPen) potassium chloride 10 mEq 10 meq PO QDAY 05/07/24 Unkn own History capsule,extended release levothyroxine 100 mcg tablet 100 mcg PO DAILY 05/24/24 Unknown History omeprazole 20 mg tablet,delayed 20 mg PO MOWEFR Unknown History release Allergy/AdvReac Type Severity Reaction Status Date / Time bee venom protein (honey bee) Allergy Severe Anaphylaxis Verified 05/24/24 08:51 sulfabenzamide (From Sultrin) Allergy Mild Rash Verified 05/24/24 08:51 sulfacetamide (From Sultrin) Allergy Mild other Verified 05/24/24 08:51 sulfathiazole (From Sultrin) Allergy Mild other Verified 05/24/24 08:51 Family History (Updated 05/07/24 @ 14:41 by Sara Galicia) Mother Lung cancer Brain cancer malignant CAD (coronary artery disease) Father COPD (chronic obstructive pulmonary disease) Prostate cancer Colon cancer Grandmother Colon cancer Sister Cleft lip Grandfather Diabetes Hypertension Respiratory disease copd Surgical History (Updated 05/24/24 @ 09:[address]) Hx of bladder repair surgery Hx of colonoscopy H/O rotator cuff surgery History of carpal tunnel surgery History of bilateral cataract extraction S/P knee replacement History of breast biopsy (~06/2021) H/O tubal ligation History of endometrial ablation Social History (Updated 05/07/24 @ 14:50 by Sara Galicia) Smoking Status: Never smoker alcohol intake: never substance use type: does not use caffeine: Yes what type of physical activity do you participate in: none seatbelt use: always do you feel safe at home: Yes additional social history: retired- [employer] - Shun pt denies vaping, denies marijuana use, denies edibles, denies aspirin and denies ibuprofen use. Audit: Pertinent Findings Pertinent Findings Consult pertinent findings: EKG pending but not available 05/24/2024 Recommendation Anesthesia Recommendation Anesthesia recommendation: OPTIMIZED for anesthesia
[2024-06-07] VITALS (10 sets, daily range): BP systolic 128–158; BP diastolic 61–107; PULSE 83–128; RESP 14–20; TEMP 36.3–37.3; O2SAT 86–98; BMI 28.8
[2024-06-07] MEDS: 0.9% Normal Saline (1000mL) 1,000 ML 15 ML IV (06:41)
--- NOTE | 2024-06-07 07:23 | PCM.HP.BLA ---
History and Physical Date of Admission: 06/07/24 The patient is examined and there are no changes to the H&P dated 05/22/24. The patient is marked in the pre-op holding area. An informed consent is obtained for bilateral breast reduction. Assessment & Plan Assessment/Plan (1) Breast hypertrophy: (2) Chronic neck pain: (3) Chronic shoulder pain: (4) Chronic back pain: PLAN: Plan Pt for bilateral breast reduction.
--- NOTE | 2024-06-07 07:27 | PRE.ANES_ITS ---
ASA Classification* ASA Classification ASA Classification: 2 Assessment & Plan Anesthesia* Anesthesia Assessment Anesthesia Assessment: Discussed sedation and/or anesthesia options, risks, benefits, and alternatives with patient/parents/legal guardian/POA. Questions invited. The patient/parents/legal guardian/POA seems to understand and agrees to proceed with anesthesia plan. Reviewed the physical assessment, medical history, allergy history and patient home medications list prior to surgery/procedure/anesthetic and documented any changes. Performed airway and anesthesia risk assessments. Anesthesia Type Anesthesia Type: General Anesthesia Focused Assessment* Temperature: 98.8 F Pulse Rate: 83 Blood Pressure: 158/81 Respiratory Rate: 20 Pulse Ox: 98 Airway Assessment Mouth opens: >3 cm Mallampati Score: II Focused Labs Anesthesia Preop lab: CBC WBC 9.4 K/mm3 (4.4-11.0) 03/24/22 11:40 03/24/22 RBC 4.72 M/mm3 (4.2-5.4) 03/24/22 11:40 03/24/22 Hgb 13.3 g/dL (12.0-15.0) 03/24/22 11:40 03/24/22 Hct 40.0 % (37-47) 03/24/22 11:40 03/24/22 Plt Count 281 K/mm3 (150-450) 03/24/22 11:40 03/24/22 CHEMISTRY Potassium 3.4 mmol/L (3.5-5.1) L 03/24/22 11:40 03/24/22 Sodium 141 mmol/L (136-145) 03/24/22 11:40 03/24/22 BUN 15 mg/dL (7-18) 03/24/22 11:40 03/24/22 Creatinine 1.13 mg/dL (0.55-1.02) H 03/24/22 11:40 Glucose 146 mg/dL (74-106) H 03/24/22 11:40 03/24/22 COAG Pre-Assessment Diagnosis/Proposed Procedure Planned Operative Procedure(s): BILAT BREAST REDUCTION Anesthesia History Anesthesia History - sales planning analyst: Anesthesia History - sales planning analyst Hx Hospitalization No 05/24/24 08:54 Any Problems With Anesthesia Yes: N,V AND SLOW TO AWAKEN 05/24/24 08:54 Cholinesterase deficiency No 05/24/24 08:54 You/Your Family Experience No 05/24/24 08:54 fever (hyperthermia) with Relationship Recent Exposure to Contagious No 06/07/24 06:33 Disease Does patient have nerve No 05/24/24 08:54 stimulator Patient instructed to have device shut off --Does patient have Pacemaker No 06/07/24 06:33 or ICD? When Was Last Pacemaker Check QUESTION #4 FULL TEXT: You/Your Family Experience fever (hyperthermia) with Anesthesia Last Oral Intake Last Oral intake: Last Oral Intake NPO since 20:00 06/07/24 06:33 Meds taken in AM with sips of Yes 06/07/24 06:33 water? Meds patient instructed to take am of surgery PONV PONV - sales planning analyst: PONV - sales planning analyst Female Yes 05/24/24 08:54 HX of Motion Sickness Yes 05/24/24 08:54 HX of N/V After Surgery Yes 05/24/24 08:54 Non-Smoker Yes 05/24/24 08:54 Duration of Surgery greater Yes 05/24/24 08:54 than 60 minutes Number of Risk Factors 5 05/24/24 08:54 PONV Score Severe Risk 05/24/24 08:54 Height & Weight Height & Weight: Anesthesia: Height & Weight Height 5 ft 6 in 06/07/24 06:33 Weight: 81.1 kg 06/07/24 06:33 Body Mass Index (BMI) 28.8 06/07/24 06:33 Respiratory Assessment Respiratory Assessment - sales planning analyst: Respiratory Tract Infection Hx - sales planning analyst Hx Respiratory Tract Infection No 05/24/24 08:54 STOP Sleep Apnea STOP Sleep Apnea - sales planning analyst: STOP Sleep Apnea - sales planning analyst Hx Hypertension Yes: CONTROLLED WITH MED 05/24/24 08:54 Hx Sleep Apnea No 05/24/24 08:54 CPAP BIPAP Do you snore loudly (louder No 05/24/24 08:54 than talking or can be heard Do you often feel tired/ No 05/24/24 08:54 fatigued/ sleepy during daytime? Has anyone observed you stop No 05/24/24 08:54 breathing during sleep? STOP Results Negative 05/24/24 08:54 QUESTION #5 FULL TEXT : Do you snore loudly (louder than talking or can be heard through closed doors)? Tobacco Use History Tobacco Use History - sales planning analyst: Tobacco Use History - sales planning analyst Tobacco Use Smoking Status Never smoker 05/24/24 08:54 Hx Tobacco Use No 05/24/24 08:54 Years Smoking Packs Smoked per Day Smoking Cessation Date was within the last 15 years Hx Smoking Cessation Date Hx Smoking Cessation Counseling Hematologic Medial History Hematologic Hx - sales planning analyst: Hematologic Medical Hx - clinical documentation consultant Hx of Blood Transfusion No 05/24/24 08:54 Hx of Transfusion in last 3 No 05/24/24 08:54 Months Date of Last Transfusion (if within last 3 months) Ever experience any problems No 05/24/24 08:54 with transfusion(s)? Specify any problems Hx of Preganancy in last 3 No 05/24/24 08:54 Months Nurse Filling Out Transfusion DSCHRIBER 05/24/24 08:54 & Questions: Date: 05/24/24 05/24/24 08:54 Time: 08:56 05/24/24 08:54 Patient unable to answer at this time (ie. confused, unrespo /Reproduction History /Reproductive History - sales planning analyst: /Reproductive Hx- sales planning analyst Hx Now No 05/24/24 08:54 Gestational Age (in weeks): EDC: Hx Hx Para Hx Section SAB No 05/24/24 08:54 Active Medications Active Medications: Current Medications Generic Name Dose Route Start Last Admin Trade Name Freq PRN Reason Stop Dose Admin Cefazolin Sodium 2 gm/ N/A 20 mls @ 400 mls/hr 06/07/24 07:30 IV 06/07/24 07:32 PREOP ONE Sodium Chloride 1,000 mls @ 15 mls/hr 06/07/24 06:20 06/07/24 06:41 IV 06/12/24 19:39 15 mls/hr .Q48H ARLENE Administration Protocol PFS Medical History Wears hearing aid Post-menopausal Cancer Depression Anxiety Non-smoker History of stress test History of irregular heartbeat Hx of fracture of wrist History of trigger finger Thyroid disease GERD (gastroesophageal reflux disease) Abnormal mammogram of left breast Genetic testing of female Hypertension Anxiety and depression Home Medications ?Medication ?Instructions ?Recorded ?Last Taken ?Type ascorbate calcium (vitamin C) 500 500 mg PO DAILY 08/1205/31/24 History mg tablet cholecalciferol (vitamin D3) 50 50 mcg PO DAILY Unknown History mcg (2,000 unit) capsule cyanocobalamin (vitamin B-12) 1,000 mcg PO DAILY 01/2505/31/24 History 1,000 mcg capsule escitalopram oxalate 10 mg tablet 10 mg PO DAILY 01/2506/07/24 History (Lexapro) losartan 100 1 tab PO DAILY 01/25/2105/25 History mg-hydrochlorothiazide 25 mg tablet multivitamin 1 tab PO DAILY 07/14/21 Unkn own History calcium carbonate 500 mg PO DAILY 07/04/2211/15 History epinephrine 0.3 mg/0.3 mL 0.3 mg IM ONCE 07/04/22 Unkn own History injection, auto-injector (EpiPen) potassium chloride 10 mEq 10 meq PO QDAY 05/07/2405/25 History capsule,extended release levothyroxine 100 mcg tablet 100 mcg PO DAILY 05/24/24 06/07/24 History omeprazole 20 mg tablet,delayed 20 mg PO MOWEFR 05/31/24 History release cephalexin 500 mg capsule 500 mg PO BID #14 caps 05/28 Unknown Rx Allergy/AdvReac Type Severity Reaction Status Date / Time bee venom protein (honey bee) Allergy Severe Anaphylaxis Verified 06/07/24 06:31 sulfabenzamide (From Sultrin) Allergy Mild Rash Verified 06/07/24 06:31 sulfacetamide (From Sultrin) Allergy Mild other Verified 06/07/24 06:31 sulfathiazole (From Sultrin) Allergy Mild other Verified 06/07/24 06:31 Family History Mother Lung cancer Brain cancer malignant CAD (coronary artery disease) Father COPD (chronic obstructive pulmonary disease) Prostate cancer Colon cancer Grandmother Colon cancer Sister Cleft lip Grandfather Diabetes Hypertension Respiratory disease copd Surgical History Hx of bladder repair surgery Hx of colonoscopy H/O rotator cuff surgery History of carpal tunnel surgery History of bilateral cataract extraction S/P knee replacement History of breast biopsy (~06/2021) H/O tubal ligation History of endometrial ablation Social History Smoking Status: Never smoker alcohol intake: never substance use type: does not use caffeine: Yes what type of physical activity do you participate in: none seatbelt use: always do you feel safe at home: Yes additional social history: retired- [employer] - Shun pt denies vaping, denies marijuana use, denies edibles, denies aspirin and denies ibuprofen use. Review of Systems (Anesthesia) ROS Narrative System reviewed and no additional complaints, except as documented.
--- NOTE | 2024-06-07 07:30 | BR_PTH ---
PATIENT: ARIAN SALGADO LOC: [facility] [place] U#:[id number] AGE/SX: 73/F ROOM: RE06/07/[address]: Dr. Kay Plascencia MD : 1950 BED: DIS: 06/07/2024 SPEC #: [id number] RECD: 06/09/24 12:37 STATUS: LG GOLD #: [id number] MAYRA: 06/07/24 07:[address]: Kay Plascencia DEPT: SURGICAL PATHOLOGY RECD BY: Zac Narayan ENTERED: 06/10/24 09:49 SP TYPE: MAMOPLASTY OTHR DR: Dr. Iban Weller MD Tissues: A - Right breast, NOS B - Left breast, NOS Procedures: Surgery Specimen Level IV HEADER OPERATION: Bilateral breast reduction PRE-OP DIAGNOSIS: Breast hypertrophy chronic neck shoulder and back pain TISSUE SUBMITTED: A- Right breast tissue - 308gm, B- Left breat tissue - 366gm MICROSCOPIC DIAGNOSIS A. Right breast tissue, breast reduction mammoplasty: Focal fibrocystic changes and mild intraductal hyperplasia without atypia. Ductal dilatation. Hyalinized fibroadenoma. Focal fat necrosis, chronic inflammation and histiocytic reaction. See comment. B. Left breast tissue, breast reduction mammoplasty: Focal fibrocystic changes. Ductal dilatation. See comment. 06/11/2024 COMMENT A. The fibroadenoma measures 2.5 x 0.9cm (measured microscopically). Please make reference to previous specimen [id number] left breast, core biopsy with diagnosis of hyalinized fibroadenoma. MICROSCOPIC DESCRIPTION Slides are reviewed. GROSS DESCRIPTION A - Received in fixative is one container labeled with the patient's name and designated Right breast tissue - 308gm. The specimen consists of multiple pieces of fibroadipose tissue with a few of the pieces showing saucedo-white skin measuring in aggregate 18 x 17 x 5 cm. No skin lesion is identified. Sections reveal yellow adipose cut surfaces mixed with scant fibrous areas. No mass lesion is identified. Student Services Coordinator sections are submitted in six cassettes. Cassette 1 contains the skin piece. B - Received in fixative is one container labeled with the patient's name and designated Left breast tissue - 366gm. The specimen consists of multiple pieces of fibroadipose tissue with a few of the pieces showing saucedo-white skin measuring in aggregate 19 x 18 x 5 cm. No skin lesion is identified. Sections reveal yellow adipose cut surfaces mixed with scant fibrous areas. No mass lesion is identified. Student Services Coordinator sections are submitted in six cassettes. Cassette 1 contains the skin piece. / VALERIE: 06/10/2024 TC:5 CPT:16371e0
[2024-06-07] MEDS: Cefazolin 2 GM in Syringe IV (07:50)
[2024-06-07] MEDS: Methylene Blue 1% 100 MG/10 ML VIAL (08:08)
[2024-06-07] MEDS: Gentamicin 80 MG/2 ML Vial (08:08)
[2024-06-07] MEDS: EPINEPHrine Nasal 0.1% 30 ML Bottle (08:08)
[2024-06-07] MEDS: Bupivacaine 0.25% 30 ML Vial (12:09)
--- NOTE | 2024-06-07 12:19 | DCINST_ITS ---
Discharge Instructions Dressing / Incision Additional Dressing/Incision Instructions:: Follow the instructions given in the office. Use the incentive spirometer every hour during the day. Take the oral antibiotic 2 times a day as directed. Follow Up Care Please Follow Up With: Kay Plascencia MD When: In 1 week Test Results: Test results from this visit will be discussed in further detail at your follow- up appointment, if applicable. Discharge Plan Admission Attending Provider: Kay Plascencia Primary Care Provider: Iban Weller Instructions Print Language: Persian Discharge Orders/Prescriptions Prescriptions: No Action escitalopram oxalate [Lexapro] 10 mg tablet 10 mg PO DAILY losartan-hydrochlorothiazide 100-25 mg tablet 1 tab PO DAILY cholecalciferol (vitamin D3) 50 mcg (2,000 unit) capsule 50 mcg PO DAILY cyanocobalamin (vitamin B-12) 1,000 mcg capsule 1,000 mcg PO DAILY ascorbate calcium (vitamin C) 500 mg tablet 500 mg PO DAILY epinephrine [EpiPen] 0.3 mg/0.3 mL auto-injector 0.3 mg IM ONCE Rx Instructions: as a single dose; may repeat once calcium carbonate 500 mg calcium (1,250 mg) tablet 500 mg PO DAILY multivitamin Tablet 1 tab PO DAILY potassium chloride 10 mEq capsule, extended release 10 meq PO QDAY cephalexin 500 mg capsule 500 mg PO BID Qty: 14 0RF levothyroxine 100 mcg tablet 100 mcg PO DAILY omeprazole 20 mg tablet,delayed release (DR/EC) 20 mg PO MOWEFR Referrals / Follow Up: Iban Weller MD [Primary Care Provider] - Disposition Disposition (needs filled in before D/C Order can be placed): Home, Self Care
--- NOTE | 2024-06-07 12:21 | PCM.OPRPT ---
Problems Associated Problem List Diagnoses (1) Breast hypertrophy: (2) Chronic back pain: Operative Report (Standard) Operative Information Date of Procedure: 06/07/24 Pre-Operative Diagnosis: Bilateral breast hypertrophy, Chronic back pain Post-Operative Diagnosis: Same Surgery/Procedure Performed: Bilateral breast reduction (right?308 g, left?366 g) catering driver: Yes Transfer And Pumphouse Operator: Breana Mcdaniels Tasks completed by assistant professor of mathematics: Closing and Retracting Type of Anesthesia: General RN Documented Start/Stop Times: Operation Date: 06/07/24 07:30 Case Time Into Pre-Op 06/07/24 06:10 Out of Pre-Op 06/07/24 07:30 Anesthesia Start 06/07/24 07:35 Into Room 06/07/24 07:35 Procedure Start 06/07/24 08:08 Procedure End 06/07/24 12:16 Procedure Start Time: 08:08 Procedure Stop Time: 12:16 Select all DRAINS/GRAFTS/IMPLANTS that apply: None Estimated Blood Loss: <50cc Specimen collected: Yes Description of specimen(s) removed: Bilateral breast tissue Description of surgery: The patient presents today for bilateral breast reduction to alleviate chronic neck pain. The procedure been thoroughly reviewed with the patient. No guarantees as to the final size were made. An informed consent is obtained prior to surgery. She is marked in the preop holding area prior to surgery. The patient is brought to the operating room and placed under general anesthesia in the supine position. Care is taken to pad all pressure points, insert a Gillette catheter, apply sequential compression stockings, and apply a warming blanket. She is prepped and draped in the usual sterile fashion. We initially began with incising the previously marked incisions. The pedicle is then de-epithelialized. The medial and lateral inferior aspects of the breast are removed using argon coagulation. Following this, the pedicle is from the upper flap and dissection continued cephalad maintaining the upper flap at least 2 cm in thickness. Following this, the pedicle is trimmed in order to allow it to comfortably fit beneath the upper flap. The wound is irrigated with antibiotic solution and checked for hemostasis which is controlled with cautery. Following this, the breast is infolded and tacked together using silk suture and skin clips. With a satisfactory size and shape noted, would begin to close the incisions. Vicryl sutures were used to approximate a few points along the subcutaneous tissue. A 3 oh STRATAFIX suture was then used to approximate the incisions in 3 layers. Approximately 4-1/2 cm above the inframammary crease, the nipple areola is brought out through an opening and tacked in place using nylon suture. Further refinement of all the incisions is performed with a subcuticular strata fix suture. The identical procedure was performed on the opposite side. All tissue is passed off the operative field to be weighed and sent to pathology. 1/4% plain Marcaine is injected along the incision lines. The wounds are dressed with Xeroform, and fluff gauze. She is placed in front fastening surgery bra. She tolerated the procedure well was taken to the recovery area in an awakening in stable condition. Needle and sponge counts are correct. Surgical Findings: As above Complications Complications: No Admit VTE Documentation VTE Mechan Device Prophylaxis: SCD's
--- NOTE | 2024-06-07 12:44 | PCM.POST.ANE ---
Anesthesia: Postop Eval I Current Vital Signs Temperature: 97.4 F Pulse Rate: 123 Blood Pressure: 151/73 Respiratory Rate: 20 Pulse Ox: 96 Assessment Airway patent: Yes Spontaneous unlabored respirations: Yes nausea: No Vomiting: No Anesthesia Complication: No Fluid Hydration Crystalloid volume administer (ml): 1,800 Total IV fluid infused: 1,800 Progress Note Anesthesia document: Postop Eval 1 completed: Yes
[2024-06-07] MEDS: Acetaminophen 500 MG Tablet 1000 MG PO (14:45)
--- NOTE | 2024-06-07 21:58 | POSTOPAN2_ITS ---
Anesthesia Postop Eval I Sum Postop Eval Completion status Anesthesia document: Postop Eval 1 completed: Yes Anesthesia Postop Eval I Summary Anesthesia Postop Eval I Summary: Anesthesia Postop Eval I: Assessment Summary Airway patent Yes 06/07/24 12:44 [email or web address] Spontaneous unlabored Yes 06/07/24 12:44 [email or web address] respirations Mental status nausea No 06/07/24 12:44 PROGRAM [email or web address] Vomiting No 06/07/24 12:44 [email or web address] Anesthesia Postop Eval I: Fluid Summary Crystalloid volume administer 1,800 06/07/24 12:44 [email or web address] (ml) Colloids volume administered ( ml) Blood Product volume administered (ml) Total IV fluid infused 1,800 06/07/24 12:44 PROGRAM [email or web address] Anesthesia Postop Eval I: Summary Notes Anesthesia Complication No 06/07/24 12:44 [email or web address] Anesthesia Complication Comment: Post-operative progress note Anesthesia: Postop Eval II Evaluation Mental status: Awake and Calm Pain Level: 2 nausea: No Vomiting: No Complications Anesthesia Complication: No
--- NOTE | 2024-06-07 21:58 | PCM.POSTANE2 ---
Anesthesia Postop Eval I Sum Postop Eval Completion status Anesthesia document: Postop Eval 1 completed: Yes Anesthesia Postop Eval I Summary Anesthesia Postop Eval I Summary: Anesthesia Postop Eval I: Assessment Summary Airway patent Yes 06/07/24 12:44 PROJECT MANAGEMENT [email or web address] Spontaneous unlabored Yes 06/07/24 12:44 PROJECT MANAGEMENT [email or web address] respirations Mental status nausea No 06/07/24 12:44 PROJECT MANAGEMENT [email or web address] Vomiting No 06/07/24 12:44 PROJECT MANAGEMENT [email or web address] Anesthesia Postop Eval I: Fluid Summary Crystalloid volume administer 1,800 06/07/24 12:44 PROJECT MANAGEMENT [email or web address] (ml) Colloids volume administered ( ml) Blood Product volume administered (ml) Total IV fluid infused 1,800 06/07/24 12:44 PROJECT MANAGEMENT [email or web address] Anesthesia Postop Eval I: Summary Notes Anesthesia Complication No 06/07/24 12:44 PROJECT MANAGEMENT [email or web address] Anesthesia Complication Comment: Post-operative progress note Anesthesia: Postop Eval II Evaluation Mental status: Awake and Calm Pain Level: 2 nausea: No Vomiting: No Complications Anesthesia Complication: No
== END 2024-06-07 16:13 | disposition home or self-care (01) ==
LOC: SDC 05:58 → AC 05:58
PROVIDERS: PCP Family Medicine; Referring Provider Plastic Surgery; Visit Provider Plastic Surgery
PROC: 0H0U0ZZ Alteration of Left Breast, Open Approach (ICD-10-PCS; CPT 19318; principal; 2024-06-07 07:15)
DX: G89.29 Other chronic pain (principal); M54.2 Cervicalgia; N62 Hypertrophy of breast; M25.519 Pain in unspecified shoulder; D24.1 Benign neoplasm of right breast; I10 Essential (primary) hypertension; K21.9 Gastro-esophageal reflux disease without esophagitis; Z79.899 Other long term (current) drug therapy; E07.9 Disorder of thyroid, unspecified; Z79.890 Hormone replacement therapy; N64.1 Fat necrosis of breast
CPT/HCPCS: 19318; 00402; 88305; J2405

== ENCOUNTER → 2025-02-27 | Outpatient (CLI) | payer MEDICARE, OTHER, SELFPAY ==
--- NOTE | 2025-02-27 12:28 | US_ITS ---
PROCEDURE: PELVIC W/ TRANSVAGINAL REASON FOR EXAM: PMB TECHNIQUE: Procedure Code: [id number] Modality: US Procedure: PELVIC W/ TRANSVAGINAL COMPARISON: None FINDINGS: Patient is postmenopausal. Measurements: Uterus: 6.4 cm x 3.6 cm x 2.7 cm with a volume of 32.5 mL Endometrial Thickness: 2 mm. Fluid is seen within the endometrium. There are 2, endometrial polyps. The larger measures 3 mm x 3 mm x 2 mm. Right Ovary: Not visualized. Left Ovary: Not visualized. TRANSABDOMINAL: Uterus: Heterogeneous echotexture of the myometrium suggestive of fibroid change although no focal fibroid is seen. Endometrium: There are 2, endometrial polyps. Fluid is seen within the endometrium. Right ovary: Not visualized. Left ovary: Not visualized. Other: No large pelvic mass identified. Transvaginal sonography was performed to better visualize the endometrium. TRANSVAGINAL: Uterus: Heterogeneous fibroid uterus. Endometrium: There are 2, endometrial polyps. The larger measures 3 mm x 3 mm x 2 mm. Fluid is seen within the endometrium. Right ovary: Normal size and echotexture. Left ovary: Normal size and echotexture. Other adnexal findings: None. Cul-de-sac: No free intraperitoneal fluid identified. Tenderness: No tenderness US/Pelvic w/ Transvaginal IMPRESSION: Endometrial polyps. Fluid in the endometrium. Heterogeneous echotexture of the uterus in keeping with fibroid change. Reading Location: [id number]
== END | disposition home or self-care (01) ==
LOC: OPUS 12:26
PROVIDERS: PCP Family Medicine; Referring Provider Nurse Practitioner Family; Visit Provider Nurse Practitioner Family
DX: N95.0 Postmenopausal bleeding (principal)
CPT/HCPCS: 76830; 76856